=== PATIENT | female | born 1950 | race African-American/Black ===

== ENCOUNTER 2017-09-11 07:40 | Inpatient (IN) ==
[2017-09-11 08:13] LABS: Basophils % 0.2 % (0.0-0.8); Eosinophils # 0.1 10*3/uL (0.0-0.87); Eosinophils % 0.9 % (0.00-10.9); Hematocrit 41.1 VOL% (35.7-47.0); Hemoglobin 12.9 GM/DL (12.0-16.0); Immature Granulocytes % 0.3 %; Immature Granulocytes Absolute 0.04 #; Lymphocytes # 3.2 10*3/uL (1.4-4.0); Lymphocytes % 26.4 % (21.3-54.2); Mean Corpuscular HGB Conc 31.4 GM/DL (32-36); Mean Corpuscular Hemoglobin 26 PG (27-34); Mean Corpuscular Volume 82.2 FL (87-102); Mean Platelet Volume 11.1 FL (9.6-12.0); Monocytes # 0.9 10*3/uL (0.11-0.8); Neutrophils # 7.9 10*3/uL (1.4-7.4); Neutrophils % 65.2 % (38.7-73.9); Platelet Count 253 T/CUMM (130-400); Red Cell Distribution Width 14.6 % (9.3-17.3); White Blood Count 12.2 T/CUMM (4-12)
[2017-09-11 08:53] LABS: Apearance,Urine CLEAR (Clear); Bacteria,Urine Occasional /HPF (Few); Bilirubin,Urine Negative (Negative); Blood, Urine Small mg/dL (Negative); Glucose,Urine (UA) Negative (Negative); Ketones,Urine Negative (Negative); Nitrite,Urine Negative (Negative); Protein,Urine 30 MG/DL; Squamous Epithelial Cell,Urine Occasional /HPF (0-10); Urine Color Straw (Yellow); Urine Specific Gravity 1.003 (1.001-1.035); Urine Urobilinogen < 2.0 EU/DL (0.2-1.0); WBC,Urine <1 /HPF (0-6)
[2017-09-11 09:02] LABS: Albumin 3.9 G/DL (3.4-5.0); Bilirubin,Total 0.6 MG/DL (0.2-1.0); Calcium 9.2 MG/DL (8.5-10.1); Osmolality,Calculated 276.5 MOS/KG (273-304); Potassium 4.7 MMOL/L (3.5-5.1); Total Protein 9.4 G/DL (6.4-8.3)
[2017-09-11 09:05] LABS: PT Patient Result 10.5 SECS; Partial Thromboplastin Time 25.4 SECS (0-40)
[2017-09-11 09:15] LABS: Barbiturates Screen,Urine Negative (Negative); Benzodiazepines Screen,Urine Negative (Negative); Cannabinoid Screen,Urine Negative (Negative); Opiate Screen,Urine Negative (Negative); Phencyclidine Screen,Urine Negative (Negative)
[2017-09-11] MEDS ORDERED: ONDANSETRON 4 MG/2 ML VIAL IV PRN (09:57)
[2017-09-11] MEDS ORDERED: LABETALOL 20 MG/4 ML SYRINGE IV PRN (10:14)
[2017-09-11] MEDS ORDERED: GLUCAGON 1 MG VIAL IM PRN (10:18)
[2017-09-11] MEDS ORDERED: DEXTROSE 50% 25 GM/50 ML VIAL IV PRN (10:18)
[2017-09-11] MEDS: INSULIN REGULAR 100 UNIT/ML SUBCUT SCH ×3 (11:37→20:28)
[2017-09-11] MEDS ORDERED: LORazepam 0.5 MG TABLET PO ONE (12:25)
[2017-09-11 12:28] LABS: Cholesterol 173 MG/DL (50-200); HDL Cholesterol 66 MG/DL (40-60); Risk Ratio 2.62; Triglycerides 75 MG/DL (2-150)
[2017-09-11] MEDS: SODIUM CHLORIDE 0.9% 1,000 ML IV SCH (14:12)
[2017-09-11] MEDS: ASPIRIN EC 81 MG TABLET PO SCH (17:08)
[2017-09-11] MEDS: ATORVASTATIN 40 MG TABLET PO SCH (20:25)
[2017-09-12 05:11] LABS: Basophils % 0.3 % (0.0-0.8); Calcium 9.3 MG/DL (8.5-10.1); Eosinophils # 0.2 10*3/uL (0.0-0.87); Eosinophils % 1.6 % (0.00-10.9); Hematocrit 37.4 VOL% (35.7-47.0); Hemoglobin 11.6 GM/DL (12.0-16.0); Immature Granulocytes % 0.4 %; Immature Granulocytes Absolute 0.04 #; Lymphocytes # 3.2 10*3/uL (1.4-4.0); Lymphocytes % 31.9 % (21.3-54.2); Mean Corpuscular Hemoglobin 26 PG (27-34); Mean Corpuscular Volume 82.4 FL (87-102); Mean Platelet Volume 11.2 FL (9.6-12.0); Monocytes # 0.7 10*3/uL (0.11-0.8); Monocytes % 7.4 % (1.7-12.7); Neutrophils # 5.8 10*3/uL (1.4-7.4); Neutrophils % 58.4 % (38.7-73.9); Osmolality,Calculated 281.5 MOS/KG (273-304); Platelet Count 316 T/CUMM (130-400); Potassium 3.6 MMOL/L (3.5-5.1); Red Blood Count 4.54 MC/CUMM (3.8-5.5); Red Cell Distribution Width 14.5 % (9.3-17.3)
[2017-09-12] MEDS: INSULIN REGULAR 100 UNIT/ML SUBCUT SCH ×4 (08:14→20:37)
[2017-09-12] MEDS: PANTOPRAZOLE 40 MG TABLET PO SCH (08:14)
[2017-09-12] MEDS: ASPIRIN EC 81 MG TABLET PO SCH (08:14)
[2017-09-12] MEDS: SODIUM CHLORIDE 0.9% 1,000 ML IV SCH (08:17)
[2017-09-12] MEDS ORDERED: GABAPENTIN 100 MG CAPSULE PO PRN (09:47)
[2017-09-12] MEDS ORDERED: MELOXICAM 7.5 MG TABLET PO PRN (09:47)
[2017-09-12] MEDS ORDERED: FAMOTIDINE 20 MG TABLET PO PRN (09:47)
[2017-09-12] MEDS ORDERED: ERGOCALCIFEROL 50,000 UNIT CAPSULE PO SCH (10:00)
[2017-09-12] MEDS: POLYETHYLENE GLYCOL POWDER 17 GM PACK PO SCH (11:12)
[2017-09-12] MEDS: APIXABAN 2.5 MG TABLET PO SCH ×2 (11:15→20:32)
[2017-09-12] MEDS: glipiZIDE 5 MG TABLET PO SCH (17:16)
[2017-09-12] MEDS: ATORVASTATIN 40 MG TABLET PO SCH (20:33)
[2017-09-12] MEDS: TRAVOPROST 0.004% OPH SOLN 2.5 ML BOTTLE BOTH EYES SCH (20:33)
[2017-09-12] MEDS: INSULIN GLARGINE 100 UNIT/ML SUBCUT SCH (20:35)
[2017-09-12] MEDS ORDERED: IBUPROFEN 800 MG TABLET PO ONE (22:56)
[2017-09-13] MEDS: INSULIN REGULAR 100 UNIT/ML SUBCUT SCH ×4 (07:54→20:31)
[2017-09-13] MEDS ORDERED: MAGNESIUM HYDROXIDE SUSP 30 ML UDCUP PO PRN (08:35)
[2017-09-13] MEDS: POLYETHYLENE GLYCOL POWDER 17 GM PACK PO SCH (08:40)
[2017-09-13] MEDS: hydroCHLOROthiazide 25 MG TABLET PO SCH (08:41)
[2017-09-13] MEDS: APIXABAN 2.5 MG TABLET PO SCH ×2 (08:42→20:27)
[2017-09-13] MEDS: QUINAPRIL 20 MG TABLET PO SCH (08:42)
[2017-09-13] MEDS: PANTOPRAZOLE 40 MG TABLET PO SCH (08:43)
[2017-09-13] MEDS: glipiZIDE 5 MG TABLET PO SCH ×2 (08:44→17:38)
[2017-09-13] MEDS: INSULIN GLARGINE 100 UNIT/ML SUBCUT SCH (20:27)
[2017-09-13] MEDS: TRAVOPROST 0.004% OPH SOLN 2.5 ML BOTTLE BOTH EYES SCH (20:27)
[2017-09-13] MEDS: ATORVASTATIN 40 MG TABLET PO SCH (20:28)
[2017-09-14 05:41] LABS: Basophils % 0.3 % (0.0-0.8); Eosinophils # 0.3 10*3/uL (0.0-0.87); Eosinophils % 2.2 % (0.00-10.9); Hematocrit 35.4 VOL% (35.7-47.0); Immature Granulocytes % 0.9 %; Lymphocytes # 3.3 10*3/uL (1.4-4.0); Lymphocytes % 28.5 % (21.3-54.2); Mean Corpuscular HGB Conc 31.1 GM/DL (32-36); Mean Corpuscular Hemoglobin 26 PG (27-34); Mean Corpuscular Volume 82.9 FL (87-102); Mean Platelet Volume 11.7 FL (9.6-12.0); Monocytes # 0.8 10*3/uL (0.11-0.8); Monocytes % 7.2 % (1.7-12.7); Neutrophils % 60.9 % (38.7-73.9); Platelet Count 319 T/CUMM (130-400); Red Blood Count 4.27 MC/CUMM (3.8-5.5); Red Cell Distribution Width 14.6 % (9.3-17.3); White Blood Count 11.5 T/CUMM (4-12)
[2017-09-14 06:33] LABS: Calcium 9.3 MG/DL (8.5-10.1); Osmolality,Calculated 281.4 MOS/KG (273-304); Potassium 3.6 MMOL/L (3.5-5.1)
[2017-09-14] MEDS ORDERED: SODIUM CHLORIDE 0.9% 1,000 ML IV SCH ×2 (08:00)
[2017-09-14] MEDS: hydroCHLOROthiazide 25 MG TABLET PO SCH (08:44)
[2017-09-14] MEDS: INSULIN REGULAR 100 UNIT/ML SUBCUT SCH ×4 (08:44→20:13)
[2017-09-14] MEDS: PANTOPRAZOLE 40 MG TABLET PO SCH (08:45)
[2017-09-14] MEDS: glipiZIDE 5 MG TABLET PO SCH ×2 (08:45→17:46)
[2017-09-14] MEDS: QUINAPRIL 20 MG TABLET PO SCH (08:45)
[2017-09-14] MEDS ORDERED: diphenhydrAMINE CAP 25 MG CAPSULE PO ONE (09:00)
[2017-09-14] MEDS ORDERED: DIAZEPAM 5 MG TABLET PO ONE (09:00)
[2017-09-14] MEDS: APIXABAN 2.5 MG TABLET PO SCH ×2 (10:14→20:12)
[2017-09-14] MEDS: POLYETHYLENE GLYCOL POWDER 17 GM PACK PO SCH (10:15)
[2017-09-14] MEDS ORDERED: LIDOCAINE 1%/EPI INJ 20 ML VIAL ONE (14:01)
[2017-09-14] MEDS ORDERED: TISSUE ADHESIVE 1 EACH APPLICATOR TOP ONE (14:02)
[2017-09-14] MEDS ORDERED: DEXTROSE 50% 25 GM/50 ML VIAL IV PRN (15:34)
[2017-09-14] MEDS ORDERED: GLUCAGON 1 MG VIAL IM PRN (15:34)
[2017-09-14] MEDS ORDERED: KETOROLAC 15 MG/1 ML VIAL IV PRN (15:37)
[2017-09-14] MEDS: TRAVOPROST 0.004% OPH SOLN 2.5 ML BOTTLE BOTH EYES SCH (20:12)
[2017-09-14] MEDS: ATORVASTATIN 40 MG TABLET PO SCH (20:12)
[2017-09-14] MEDS: INSULIN GLARGINE 100 UNIT/ML SUBCUT SCH (20:12)
[2017-09-15] MEDS: INSULIN REGULAR 100 UNIT/ML SUBCUT SCH ×4 (08:09→20:26)
[2017-09-15] MEDS: QUINAPRIL 20 MG TABLET PO SCH (08:36)
[2017-09-15] MEDS: hydroCHLOROthiazide 25 MG TABLET PO SCH (08:36)
[2017-09-15] MEDS: APIXABAN 2.5 MG TABLET PO SCH ×2 (08:36→20:23)
[2017-09-15] MEDS: glipiZIDE 5 MG TABLET PO SCH ×2 (08:37→17:31)
[2017-09-15] MEDS: PANTOPRAZOLE 40 MG TABLET PO SCH (08:37)
[2017-09-15] MEDS: POLYETHYLENE GLYCOL POWDER 17 GM PACK PO SCH (08:37)
[2017-09-15] MEDS: ATORVASTATIN 40 MG TABLET PO SCH (20:22)
[2017-09-15] MEDS: TRAVOPROST 0.004% OPH SOLN 2.5 ML BOTTLE BOTH EYES SCH (20:23)
[2017-09-15] MEDS: INSULIN GLARGINE 100 UNIT/ML SUBCUT SCH (20:23)
[2017-09-16] MEDS: INSULIN REGULAR 100 UNIT/ML SUBCUT SCH ×4 (07:55→21:12)
[2017-09-16] MEDS: POLYETHYLENE GLYCOL POWDER 17 GM PACK PO SCH (10:09)
[2017-09-16] MEDS: hydroCHLOROthiazide 25 MG TABLET PO SCH (10:10)
[2017-09-16] MEDS: glipiZIDE 5 MG TABLET PO SCH ×2 (10:10→18:13)
[2017-09-16] MEDS: QUINAPRIL 20 MG TABLET PO SCH (10:10)
[2017-09-16] MEDS: APIXABAN 2.5 MG TABLET PO SCH ×2 (10:11→21:12)
[2017-09-16] MEDS: PANTOPRAZOLE 40 MG TABLET PO SCH (10:11)
[2017-09-16] MEDS: INSULIN GLARGINE 100 UNIT/ML SUBCUT SCH (21:12)
[2017-09-16] MEDS: ATORVASTATIN 40 MG TABLET PO SCH (21:12)
[2017-09-16] MEDS: TRAVOPROST 0.004% OPH SOLN 2.5 ML BOTTLE BOTH EYES SCH (21:12)
[2017-09-17] MEDS: INSULIN REGULAR 100 UNIT/ML SUBCUT SCH ×4 (07:59→21:01)
[2017-09-17] MEDS: POLYETHYLENE GLYCOL POWDER 17 GM PACK PO SCH (08:38)
[2017-09-17] MEDS: glipiZIDE 5 MG TABLET PO SCH ×2 (08:41→17:24)
[2017-09-17] MEDS: hydroCHLOROthiazide 25 MG TABLET PO SCH (08:41)
[2017-09-17] MEDS: QUINAPRIL 20 MG TABLET PO SCH (08:41)
[2017-09-17] MEDS: APIXABAN 2.5 MG TABLET PO SCH ×2 (08:42→21:00)
[2017-09-17] MEDS: PANTOPRAZOLE 40 MG TABLET PO SCH (08:42)
[2017-09-17] MEDS: ATORVASTATIN 40 MG TABLET PO SCH (21:00)
[2017-09-17] MEDS: INSULIN GLARGINE 100 UNIT/ML SUBCUT SCH (21:00)
[2017-09-17] MEDS: TRAVOPROST 0.004% OPH SOLN 2.5 ML BOTTLE BOTH EYES SCH (21:52)
[2017-09-18] MEDS: INSULIN REGULAR 100 UNIT/ML SUBCUT SCH ×2 (07:58→14:23)
[2017-09-18] MEDS: hydroCHLOROthiazide 25 MG TABLET PO SCH (08:40)
[2017-09-18] MEDS: glipiZIDE 5 MG TABLET PO SCH (08:40)
[2017-09-18] MEDS: QUINAPRIL 20 MG TABLET PO SCH (08:40)
[2017-09-18] MEDS: PANTOPRAZOLE 40 MG TABLET PO SCH (08:40)
[2017-09-18] MEDS: APIXABAN 2.5 MG TABLET PO SCH (08:40)
[2017-09-18] MEDS: POLYETHYLENE GLYCOL POWDER 17 GM PACK PO SCH (08:41)
[2017-09-18 14:27] VITALS: BP 121/75
== END 2017-09-18 15:58 | disposition home health service (06) | DRG 41 ==
LOC: N.ED 07:40 → SUATTDRO 09:57 → N.EDINP 09:57 → N.4E 10:27
PROVIDERS: ADMIT Internal Medicine Infectious Disease; ATTEND Internal Medicine

== ENCOUNTER 2017-10-08 21:13 | Inpatient (IN) ==
[2017-10-08 22:53] LABS: Basophils % 0.2 % (0.0-0.8); Eosinophils # 0.4 10*3/uL (0.0-0.87); Hematocrit 38.1 VOL% (35.7-47.0); Hemoglobin 11.9 GM/DL (12.0-16.0); Immature Granulocytes % 0.3 %; Immature Granulocytes Absolute 0.04 #; Lymphocytes # 3.6 10*3/uL (1.4-4.0); Lymphocytes % 28.8 % (21.3-54.2); Mean Corpuscular HGB Conc 31.2 GM/DL (32-36); Mean Corpuscular Hemoglobin 26 PG (27-34); Mean Corpuscular Volume 82.8 FL (87-102); Monocytes # 0.9 10*3/uL (0.11-0.8); Monocytes % 6.8 % (1.7-12.7); Neutrophils # 7.6 10*3/uL (1.4-7.4); Neutrophils % 60.9 % (38.7-73.9); Platelet Count 313 T/CUMM (130-400); Red Cell Distribution Width 14.1 % (9.3-17.3); White Blood Count 12.5 T/CUMM (4-12)
[2017-10-08 23:05] LABS: PT Patient Result 10.8 SECS
[2017-10-08 23:26] LABS: Alanine Aminotransferase 22 U/L (13-56); Alkaline Phosphatase 117 U/L (45-117); Aspartate Amino Transferase 22 U/L (0-37); Bilirubin,Total < 0.39 MG/DL (0.2-1.0); Blood Urea Nitrogen 18 MG/DL (7-18); Calcium 9.4 MG/DL (8.5-10.1); Glucose 175 MG/DL (74-106); Osmolality,Calculated 286.3 MOS/KG (273-304); Potassium 3.9 MMOL/L (3.5-5.1); Sodium 141 MMOL/L (136-145); Total Protein 8.6 G/DL (6.4-8.3); Troponin I Only < 0.015 NG/ML (0.00-0.045)
[2017-10-08] MEDS ORDERED: HYDROmorphone 2 MG/1 ML VIAL IV ONE (23:45)
[2017-10-08] MEDS ORDERED: ONDANSETRON 4 MG/2 ML VIAL IV STA (23:45)
[2017-10-08 23:56] LABS: Sedimentation Rate-Westergren 71 MM/HR (0-30)
[2017-10-09] MEDS ORDERED: methylPREDNISolone SOD SUC 125 MG/2 ML VIAL IV STA (00:13)
[2017-10-09] MEDS ORDERED: ONDANSETRON 4 MG/2 ML VIAL IV PRN (00:32)
[2017-10-09] MEDS ORDERED: GLUCAGON 1 MG VIAL IM PRN ×2 (00:32→02:04)
[2017-10-09] MEDS ORDERED: DEXTROSE 50% 25 GM/50 ML VIAL IV PRN ×2 (00:32→02:04)
[2017-10-09] MEDS ORDERED: GABAPENTIN 100 MG CAPSULE PO PRN (00:48)
[2017-10-09] MEDS ORDERED: ENOXAPARIN 30 MG/0.3 ML SYRINGE SUBCUT SCH (01:00)
[2017-10-09] MEDS: methylPREDNISolone SOD SUC 125 MG/2 ML VIAL IV SCH ×4 (01:41→18:28)
[2017-10-09] MEDS: INSULIN LISPRO 100 UNIT/ML SUBCUT SCH ×6 (04:20→23:38)
[2017-10-09 04:46] LABS: Basophils % 0.3 % (0.0-0.8); Eosinophils # 0.1 10*3/uL (0.0-0.87); Hematocrit 36.3 VOL% (35.7-47.0); Hemoglobin 11.4 GM/DL (12.0-16.0); Immature Granulocytes % 0.3 %; Immature Granulocytes Absolute 0.03 #; Lymphocytes % 18.5 % (21.3-54.2); Mean Corpuscular HGB Conc 31.4 GM/DL (32-36); Mean Corpuscular Hemoglobin 25 PG (27-34); Mean Corpuscular Volume 80.8 FL (87-102); Monocytes # 0.3 10*3/uL (0.11-0.8); Monocytes % 2.4 % (1.7-12.7); Neutrophils # 8.5 10*3/uL (1.4-7.4); Neutrophils % 77.5 % (38.7-73.9); Platelet Count 317 T/CUMM (130-400); Red Blood Count 4.49 MC/CUMM (3.8-5.5); Red Cell Distribution Width 14.3 % (9.3-17.3); White Blood Count 10.9 T/CUMM (4-12)
[2017-10-09 05:16] LABS: Calcium 9.3 MG/DL (8.5-10.1); Osmolality,Calculated 287.4 MOS/KG (273-304); Potassium 3.6 MMOL/L (3.5-5.1)
[2017-10-09] MEDS ORDERED: INSULIN LISPRO 100 UNIT/ML SUBCUT SCH (07:30)
[2017-10-09] MEDS: QUINAPRIL 20 MG TABLET PO SCH (09:45)
[2017-10-09] MEDS: hydroCHLOROthiazide 25 MG TABLET PO SCH (09:45)
[2017-10-09] MEDS: PANTOPRAZOLE 40 MG TABLET PO SCH (09:47)
[2017-10-09 10:17] LABS: Apearance,Urine CLEAR (Clear); Bilirubin,Urine Negative (Negative); Blood, Urine Negative (Negative); Glucose,Urine (UA) >=500 mg/dL (Negative); Ketones,Urine Negative (Negative); Mucus,Urine Occasional /LPF (Occasional); Nitrite,Urine Negative (Negative); Protein,Urine Negative; RBC,Urine 1 /HPF (0-4); Squamous Epithelial Cell,Urine Occasional /HPF (0-10); Urine Color Straw (Yellow); Urine Urobilinogen < 2.0 EU/DL (0.2-1.0); WBC,Urine 3 /HPF (0-6)
[2017-10-09] MEDS ORDERED: APIXABAN 2.5 MG TABLET PO SCH (12:00)
[2017-10-09] MEDS ORDERED: HEPARIN 5,000 UNIT/1 ML VIAL IV SCH (14:30)
[2017-10-09] MEDS: HEPARIN DRIP 25,000 UNITS/500 ML PREMIX IV SCH (16:41)
[2017-10-09] MEDS ORDERED: TRAVOPROST 0.004% OPH SOLN 2.5 ML BOTTLE BOTH EYES SCH (21:00)
[2017-10-09] MEDS ORDERED: APIXABAN 5 MG TABLET PO SCH (21:00)
[2017-10-09] MEDS: INSULIN GLARGINE 100 UNIT/ML SUBCUT SCH (21:17)
[2017-10-09] MEDS: ATORVASTATIN 40 MG TABLET PO SCH (21:17)
[2017-10-10] MEDS: methylPREDNISolone SOD SUC 125 MG/2 ML VIAL IV SCH ×4 (00:58→18:23)
[2017-10-10] MEDS: INSULIN LISPRO 100 UNIT/ML SUBCUT SCH ×5 (03:55→21:47)
[2017-10-10] MEDS: ASPIRIN CHEW 81 MG TABLET PO SCH (08:52)
[2017-10-10] MEDS: QUINAPRIL 20 MG TABLET PO SCH (08:52)
[2017-10-10] MEDS: hydroCHLOROthiazide 25 MG TABLET PO SCH (08:53)
[2017-10-10] MEDS: PANTOPRAZOLE 40 MG TABLET PO SCH (08:53)
[2017-10-10] MEDS: INSULIN GLARGINE 100 UNIT/ML SUBCUT SCH ×2 (08:54→21:47)
[2017-10-10] MEDS ORDERED: CLOPIDOGREL 75 MG TABLET PO SCH (09:00)
[2017-10-10] MEDS: HEPARIN DRIP 25,000 UNITS/500 ML PREMIX IV SCH (17:01)
[2017-10-10] MEDS: ATORVASTATIN 40 MG TABLET PO SCH (21:46)
[2017-10-11] MEDS: INSULIN LISPRO 100 UNIT/ML SUBCUT SCH ×6 (00:45→22:07)
[2017-10-11] MEDS: methylPREDNISolone SOD SUC 125 MG/2 ML VIAL IV SCH ×4 (00:45→18:25)
[2017-10-11 03:23] LABS: Basophils % 0.1 % (0.0-0.8); Hematocrit 33.2 VOL% (35.7-47.0); Hemoglobin 10.5 GM/DL (12.0-16.0); Immature Granulocytes % 0.8 %; Immature Granulocytes Absolute 0.19 #; Lymphocytes # 1.9 10*3/uL (1.4-4.0); Lymphocytes % 7.8 % (21.3-54.2); Mean Corpuscular HGB Conc 31.6 GM/DL (32-36); Mean Corpuscular Hemoglobin 26 PG (27-34); Mean Corpuscular Volume 82.8 FL (87-102); Mean Platelet Volume 12.7 FL (9.6-12.0); Monocytes # 0.5 10*3/uL (0.11-0.8); Neutrophils # 21.4 10*3/uL (1.4-7.4); Neutrophils % 89.3 % (38.7-73.9); Platelet Count 290 T/CUMM (130-400); Red Blood Count 4.01 MC/CUMM (3.8-5.5); Red Cell Distribution Width 14.3 % (9.3-17.3)
[2017-10-11 03:53] LABS: Alanine Aminotransferase 20 U/L (13-56); Alkaline Phosphatase 85 U/L (45-117); Aspartate Amino Transferase 16 U/L (0-37); Bilirubin,Total < 0.39 MG/DL (0.2-1.0); Blood Urea Nitrogen 28 MG/DL (7-18); Glucose 243 MG/DL (74-106); Osmolality,Calculated 290.5 MOS/KG (273-304); Potassium 3.3 MMOL/L (3.5-5.1); Sodium 139 MMOL/L (136-145); Total Protein 7.5 G/DL (6.4-8.3)
[2017-10-11 04:21] LABS: Band Neutrophils 2 % (0-10); Lymphocytes 8 % (20-55); Platelet Estimate Normal; Segmented Neutrophils 88 % (50-85)
[2017-10-11 04:25] LABS: Total Cells Counted 100
[2017-10-11] MEDS: POTASSIUM CHLORIDE 20 MEQ TABLET PO PRN ×4 (04:50→16:57)
[2017-10-11] MEDS: QUINAPRIL 20 MG TABLET PO SCH (09:05)
[2017-10-11] MEDS: INSULIN GLARGINE 100 UNIT/ML SUBCUT SCH ×2 (09:05→22:08)
[2017-10-11] MEDS: ASPIRIN CHEW 81 MG TABLET PO SCH (09:05)
[2017-10-11] MEDS: PANTOPRAZOLE 40 MG TABLET PO SCH (09:05)
[2017-10-11] MEDS: hydroCHLOROthiazide 25 MG TABLET PO SCH (09:05)
[2017-10-11] MEDS ORDERED: MAGNESIUM HYDROXIDE SUSP 30 ML UDCUP PO ONE (12:55)
[2017-10-11] MEDS ORDERED: BISACODYL 5 MG TABLET PO ONE (12:56)
[2017-10-11] MEDS ORDERED: LACTULOSE 20 GM/30 ML UDCUP PO ONE (12:56)
[2017-10-11] MEDS: ATORVASTATIN 40 MG TABLET PO SCH (22:07)
[2017-10-12] MEDS: INSULIN LISPRO 100 UNIT/ML SUBCUT SCH ×7 (01:24→20:49)
[2017-10-12] MEDS: methylPREDNISolone SOD SUC 125 MG/2 ML VIAL IV SCH ×4 (01:41→18:43)
[2017-10-12] MEDS: HEPARIN DRIP 25,000 UNITS/500 ML PREMIX IV SCH (03:04)
[2017-10-12 05:00] LABS: Basophils % 0.1 % (0.0-0.8); Hemoglobin 10.3 GM/DL (12.0-16.0); Immature Granulocytes % 0.6 %; Lymphocytes # 1.9 10*3/uL (1.4-4.0); Lymphocytes % 11.3 % (21.3-54.2); Mean Corpuscular HGB Conc 32.2 GM/DL (32-36); Mean Corpuscular Hemoglobin 26 PG (27-34); Mean Corpuscular Volume 80.6 FL (87-102); Mean Platelet Volume 12.2 FL (9.6-12.0); Monocytes # 0.5 10*3/uL (0.11-0.8); Monocytes % 2.9 % (1.7-12.7); Neutrophils # 14.6 10*3/uL (1.4-7.4); Neutrophils % 85.1 % (38.7-73.9); Platelet Count 274 T/CUMM (130-400); Red Blood Count 3.97 MC/CUMM (3.8-5.5); Red Cell Distribution Width 14.3 % (9.3-17.3); White Blood Count 17.1 T/CUMM (4-12)
[2017-10-12 05:21] LABS: Albumin 2.9 G/DL (3.4-5.0); Bilirubin,Total 0.5 MG/DL (0.2-1.0); Calcium 8.7 MG/DL (8.5-10.1); Osmolality,Calculated 290.4 MOS/KG (273-304); Potassium 3.3 MMOL/L (3.5-5.1); Total Protein 7.4 G/DL (6.4-8.3)
[2017-10-12] MEDS: ASPIRIN CHEW 81 MG TABLET PO SCH (09:45)
[2017-10-12] MEDS: hydroCHLOROthiazide 25 MG TABLET PO SCH ×2 (09:45→15:18)
[2017-10-12] MEDS: QUINAPRIL 20 MG TABLET PO SCH (09:45)
[2017-10-12] MEDS: INSULIN GLARGINE 100 UNIT/ML SUBCUT SCH ×2 (09:45→20:49)
[2017-10-12] MEDS: PANTOPRAZOLE 40 MG TABLET PO SCH ×2 (09:46→15:18)
[2017-10-12] MEDS ORDERED: LIDOCAINE 1%/EPI INJ 20 ML VIAL ONE (12:03)
[2017-10-12] MEDS ORDERED: TISSUE ADHESIVE 1 EACH APPLICATOR TOP ONE (12:03)
[2017-10-12] MEDS: LACTATED RINGERS 1,000 ML IV SCH (12:28)
[2017-10-12] MEDS ORDERED: PROPOFOL 200 MG/20 ML VIAL IV ONE (13:23)
[2017-10-12] MEDS ORDERED: SEVOFLURANE 1 UNIT/15 MINUTE INH ONE (13:23)
[2017-10-12] MEDS ORDERED: DEXAMETHASONE 10 MG/1 ML VIAL ONE (13:24)
[2017-10-12] MEDS ORDERED: ETOMIDATE 40 MG/20 ML VIAL IV ONE (13:24)
[2017-10-12] MEDS ORDERED: ePHEDrine 50 MG/ML AMP ONE (13:24)
[2017-10-12] MEDS ORDERED: GLYCOPYRROLATE 0.4 MG/2 ML VIAL ONE (13:24)
[2017-10-12] MEDS ORDERED: ONDANSETRON 4 MG/2 ML VIAL ONE (13:24)
[2017-10-12] MEDS ORDERED: fentaNYL 100 MCG/2 ML VIAL ONE (13:24)
[2017-10-12] MEDS ORDERED: PHENYLEPHRINE 1 MG/10 ML SYRINGE IV ONE (13:25)
[2017-10-12] MEDS ORDERED: DEXTROSE 50% 25 GM/50 ML VIAL IV PRN (15:22)
[2017-10-12] MEDS ORDERED: GLUCAGON 1 MG VIAL IM PRN (15:22)
[2017-10-12] MEDS: ATORVASTATIN 40 MG TABLET PO SCH (20:48)
[2017-10-13] MEDS: methylPREDNISolone SOD SUC 125 MG/2 ML VIAL IV SCH ×3 (00:14→13:14)
[2017-10-13] MEDS: INSULIN LISPRO 100 UNIT/ML SUBCUT SCH ×4 (00:18→13:13)
[2017-10-13] MEDS: INSULIN GLARGINE 100 UNIT/ML SUBCUT SCH (08:48)
[2017-10-13] MEDS: PANTOPRAZOLE 40 MG TABLET PO SCH (08:49)
[2017-10-13] MEDS: ASPIRIN CHEW 81 MG TABLET PO SCH (08:49)
[2017-10-13] MEDS: QUINAPRIL 20 MG TABLET PO SCH (08:50)
[2017-10-13] MEDS: hydroCHLOROthiazide 25 MG TABLET PO SCH (08:51)
[2017-10-13] MEDS ORDERED: APIXABAN 5 MG TABLET PO SCH (08:53)
[2017-10-13] MEDS: LACTATED RINGERS 1,000 ML IV SCH (13:14)
[2017-10-13 13:15] VITALS: BP 147/81
[2017-10-15] MEDS ORDERED: ERGOCALCIFEROL 50,000 UNIT CAPSULE PO SCH (09:00)
== END 2017-10-13 13:46 | disposition home or self-care (01) | DRG 41 ==
LOC: N.ED 21:13 → SUATTDRO 10-09 00:33 → N.EDINP 10-09 00:33 → N.TELES 10-09 02:12
PROVIDERS: ADMIT Internal Medicine; ATTEND Internal Medicine

== ENCOUNTER 2020-07-02 06:22 | Inpatient (IN) ==
[2020-07-02 07:11] LABS: Basophils % 0.2 % (0.0-0.8); Eosinophils # 0.2 10*3/uL (0.0-0.87); Eosinophils % 1.7 % (0.00-10.9); Hematocrit 38.3 VOL% (35.7-47.0); Immature Granulocytes % 0.4 %; Immature Granulocytes Absolute 0.04 #; Lymphocytes # 1.8 10*3/uL (1.4-4.0); Mean Corpuscular HGB Conc 31.3 GM/DL (32-36); Mean Corpuscular Volume 84.9 FL (87-102); Monocytes % 7.3 % (1.7-12.7); Neutrophils % 73.4 % (38.7-73.9); Platelet Count 212 T/CUMM (130-400); Red Blood Count 4.51 MC/CUMM (3.8-5.5); Red Cell Distribution Width 14.6 % (9.3-17.3); White Blood Count 10.6 T/CUMM (4-12)
[2020-07-02 07:44] LABS: Calcium 9.6 MG/DL (8.5-10.1); Potassium 3.5 MMOL/L (3.5-5.1)
[2020-07-02] MEDS ORDERED: MORPHINE 4 MG/1 ML VIAL IV STA (07:57)
[2020-07-02] MEDS ORDERED: ONDANSETRON 4 MG/2 ML VIAL IV STA (07:58)
[2020-07-02] MEDS ORDERED: ENOXAPARIN 80 MG/0.8 ML SYRINGE SUBCUT STA (09:18)
[2020-07-02] MEDS ORDERED: ASPIRIN CHEW 81 MG TABLET PO STA (09:18)
[2020-07-02] MEDS ORDERED: GLUCAGON 1 MG VIAL IM PRN ×2 (09:54→13:36)
[2020-07-02] MEDS ORDERED: NITROGLYCERIN SL 0.4 MG TABLET SL PRN (09:54)
[2020-07-02] MEDS ORDERED: hydrALAZINE 20 MG/1 ML VIAL IV PRN (09:54)
[2020-07-02] MEDS ORDERED: ONDANSETRON 4 MG/2 ML VIAL IV PRN (09:54)
[2020-07-02] MEDS ORDERED: DEXTROSE 50% 25 GM/50 ML VIAL IV PRN ×2 (09:54→13:36)
[2020-07-02] MEDS ORDERED: carvediloL 3.125 MG TABLET PO SCH (10:00)
[2020-07-02 10:16] LABS: Risk Ratio 1.75; VLDL CHOLESTEROL 15.4 MG/DL
[2020-07-02 10:23] LABS: Thyroid Stimulating Hormone 0.43 uIU/ml (0.358-3.74)
[2020-07-02] MEDS ORDERED: NITROGLYCERIN 2% OINT 1 INCH/GM PACK TOP STA (11:11)
[2020-07-02] MEDS ORDERED: MORPHINE 4 MG/1 ML VIAL IV PRN (11:11)
[2020-07-02] MEDS ORDERED: MAGNESIUM SULF RIDER 2 GM/50 ML PREMIX IV PRN (11:34)
[2020-07-02] MEDS ORDERED: POTASSIUM CHLORIDE RIDER 10 MEQ in PREMIX 1 EACH IV PRN (11:34)
[2020-07-02] MEDS: lisinopriL 5 MG TABLET PO SCH (11:53)
[2020-07-02] MEDS: METOPROLOL TARTRATE 25 MG TABLET PO SCH ×2 (11:53→20:39)
[2020-07-02] MEDS ORDERED: LIDOCAINE 1% 20 ML VIAL ONE (11:58)
[2020-07-02] MEDS: INSULIN LISPRO 100 UNIT/ML SUBCUT SCH ×3 (12:06→23:33)
[2020-07-02] MEDS ORDERED: diphenhydrAMINE CAP 50 MG CAPSULE PO ONE (12:30)
[2020-07-02] MEDS ORDERED: DIAZEPAM 5 MG TABLET PO ONE (12:30)
[2020-07-02] MEDS ORDERED: MIDAZOLAM 2 MG/2 ML VIAL ONE (12:34)
[2020-07-02] MEDS ORDERED: fentaNYL 100 MCG/2 ML VIAL ONE (12:34)
[2020-07-02] MEDS ORDERED: ZALEPLON 5 MG CAPSULE PO PRN (13:36)
[2020-07-02] MEDS ORDERED: KETOROLAC 10 MG TABLET PO PRN (14:35)
[2020-07-02] MEDS ORDERED: diphenhydrAMINE CAP 25 MG CAPSULE PO PRN (14:36)
[2020-07-02] MEDS ORDERED: MORPHINE 10 MG/1 ML VIAL ONE (16:59)
[2020-07-02] MEDS: LORATADINE 10 MG TABLET PO SCH (20:39)
[2020-07-02] MEDS: ENOXAPARIN 80 MG/0.8 ML SYRINGE SUBCUT SCH (20:40)
[2020-07-02] MEDS: prednisoLONE ACETATE 1% OPH SUSP 5 ML BOTTLE RIGHT EYE SCH (20:41)
[2020-07-02] MEDS: KETOROLAC 0.5% OPH SOLN 5 ML BOTTLE RIGHT EYE SCH (20:41)
[2020-07-02] MEDS: MOXIFLOXACIN 0.5% OPH SOLN 3 ML BOTTLE RIGHT EYE SCH ×2 (21:44)
[2020-07-02] MEDS: SODIUM CHLORIDE 0.9% 1,000 ML IV SCH ×2 (21:45→23:36)
[2020-07-03] MEDS: SODIUM CHLORIDE 0.9% 1,000 ML IV SCH ×2 (02:59→13:08)
[2020-07-03 05:33] LABS: Basophils % 0.1 % (0.0-0.8); Hematocrit 33.3 VOL% (35.7-47.0); Hemoglobin 10.6 GM/DL (12.0-16.0); Immature Granulocytes % 0.3 %; Immature Granulocytes Absolute 0.02 #; Lymphocytes # 1.3 10*3/uL (1.4-4.0); Lymphocytes % 17.7 % (21.3-54.2); Mean Corpuscular HGB Conc 31.8 GM/DL (32-36); Mean Corpuscular Volume 83.7 FL (87-102); Mean Platelet Volume 11.2 FL (9.6-12.0); Monocytes % 7.2 % (1.7-12.7); Neutrophils % 74.7 % (38.7-73.9); Platelet Count 221 T/CUMM (130-400); Red Blood Count 3.98 MC/CUMM (3.8-5.5); Red Cell Distribution Width 14.6 % (9.3-17.3); White Blood Count 7.4 T/CUMM (4-12)
[2020-07-03 05:49] LABS: Calcium 9.1 MG/DL (8.5-10.1); Osmolality,Calculated 279.7 MOS/KG (273-304); Potassium 3.4 MMOL/L (3.5-5.1)
[2020-07-03] MEDS ORDERED: ENOXAPARIN 40 MG/0.4 ML SYRINGE SUBCUT SCH (09:00)
[2020-07-03] MEDS: CHOLECALCIFEROL 1,000 UNIT TABLET PO SCH (09:25)
[2020-07-03] MEDS: ASPIRIN CHEW 81 MG TABLET PO SCH (09:25)
[2020-07-03] MEDS: VITAMIN E 400 UNIT CAPSULE PO SCH (09:26)
[2020-07-03] MEDS: FERROUS SULFATE 325 MG TABLET PO SCH (09:26)
[2020-07-03] MEDS: CYANOCOBALAMIN 500 MCG TABLET PO SCH (09:26)
[2020-07-03] MEDS: PANTOPRAZOLE 40 MG TABLET PO SCH (09:27)
[2020-07-03] MEDS: ATORVASTATIN 80 MG TABLET PO SCH (09:28)
[2020-07-03] MEDS: lisinopriL 5 MG TABLET PO SCH (09:29)
[2020-07-03] MEDS: DOCUSATE SODIUM 100 MG CAPSULE PO SCH (09:29)
[2020-07-03] MEDS: METOPROLOL TARTRATE 25 MG TABLET PO SCH ×2 (09:30→21:00)
[2020-07-03] MEDS: POTASSIUM CHLORIDE 10 MEQ TABLET PO SCH ×2 (09:31→21:01)
[2020-07-03] MEDS: INSULIN LISPRO 100 UNIT/ML SUBCUT SCH ×4 (09:33→21:12)
[2020-07-03] MEDS: ENOXAPARIN 80 MG/0.8 ML SYRINGE SUBCUT SCH ×2 (09:33→21:00)
[2020-07-03] MEDS: prednisoLONE ACETATE 1% OPH SUSP 5 ML BOTTLE RIGHT EYE SCH ×4 (09:35→21:12)
[2020-07-03] MEDS: KETOROLAC 0.5% OPH SOLN 5 ML BOTTLE RIGHT EYE SCH ×4 (09:35→21:12)
[2020-07-03] MEDS: MOXIFLOXACIN 0.5% OPH SOLN 3 ML BOTTLE RIGHT EYE SCH ×4 (09:37→21:13)
[2020-07-03] MEDS: ASCORBIC ACID 500 MG TABLET PO SCH (21:01)
[2020-07-03] MEDS: LORATADINE 10 MG TABLET PO SCH (21:01)
[2020-07-04 04:48] LABS: Basophils % 0.3 % (0.0-0.8); Eosinophils % 0.5 % (0.00-10.9); Hematocrit 34.6 VOL% (35.7-47.0); Hemoglobin 10.6 GM/DL (12.0-16.0); Immature Granulocytes % 0.3 %; Immature Granulocytes Absolute 0.02 #; Lymphocytes # 2.2 10*3/uL (1.4-4.0); Lymphocytes % 28.4 % (21.3-54.2); Mean Corpuscular HGB Conc 30.6 GM/DL (32-36); Mean Corpuscular Volume 85.6 FL (87-102); Mean Platelet Volume 11.1 FL (9.6-12.0); Neutrophils % 60.5 % (38.7-73.9); Platelet Count 219 T/CUMM (130-400); Red Blood Count 4.04 MC/CUMM (3.8-5.5); Red Cell Distribution Width 14.8 % (9.3-17.3); White Blood Count 7.8 T/CUMM (4-12)
[2020-07-04 05:14] LABS: Calcium 9.2 MG/DL (8.5-10.1); Osmolality,Calculated 277.5 MOS/KG (273-304); Potassium 3.5 MMOL/L (3.5-5.1)
[2020-07-04 05:16] LABS: Calcium 8.9 MG/DL (8.5-10.1); Osmolality,Calculated 281.3 MOS/KG (273-304); Potassium 3.5 MMOL/L (3.5-5.1)
[2020-07-04] MEDS: INSULIN LISPRO 100 UNIT/ML SUBCUT SCH ×4 (09:53→20:44)
[2020-07-04] MEDS: VITAMIN E 400 UNIT CAPSULE PO SCH (09:54)
[2020-07-04] MEDS: CHOLECALCIFEROL 1,000 UNIT TABLET PO SCH (09:54)
[2020-07-04] MEDS: POTASSIUM CHLORIDE 10 MEQ TABLET PO SCH ×2 (09:54→20:44)
[2020-07-04] MEDS: ATORVASTATIN 80 MG TABLET PO SCH (09:54)
[2020-07-04] MEDS: CYANOCOBALAMIN 500 MCG TABLET PO SCH (09:54)
[2020-07-04] MEDS: lisinopriL 5 MG TABLET PO SCH (09:55)
[2020-07-04] MEDS: DOCUSATE SODIUM 100 MG CAPSULE PO SCH (09:55)
[2020-07-04] MEDS: ASCORBIC ACID 500 MG TABLET PO SCH ×2 (09:55→20:44)
[2020-07-04] MEDS: PANTOPRAZOLE 40 MG TABLET PO SCH (09:56)
[2020-07-04] MEDS: FERROUS SULFATE 325 MG TABLET PO SCH (09:56)
[2020-07-04] MEDS: METOPROLOL TARTRATE 25 MG TABLET PO SCH ×2 (09:56→20:44)
[2020-07-04] MEDS: ASPIRIN CHEW 81 MG TABLET PO SCH (09:56)
[2020-07-04] MEDS: prednisoLONE ACETATE 1% OPH SUSP 5 ML BOTTLE RIGHT EYE SCH ×4 (09:57→20:44)
[2020-07-04] MEDS: KETOROLAC 0.5% OPH SOLN 5 ML BOTTLE RIGHT EYE SCH ×4 (09:57→20:44)
[2020-07-04] MEDS: MOXIFLOXACIN 0.5% OPH SOLN 3 ML BOTTLE RIGHT EYE SCH ×4 (09:58→20:45)
[2020-07-04] MEDS ORDERED: SUMAtriptan 25 MG TABLET PO PRN (15:07)
[2020-07-04] MEDS: LORATADINE 10 MG TABLET PO SCH (20:44)
[2020-07-05 05:30] LABS: Basophils % 0.2 % (0.0-0.8); Eosinophils % 0.4 % (0.00-10.9); Hematocrit 29.9 VOL% (35.7-47.0); Hemoglobin 9.3 GM/DL (12.0-16.0); Immature Granulocytes % 0.4 %; Immature Granulocytes Absolute 0.04 #; Lymphocytes # 2.1 10*3/uL (1.4-4.0); Lymphocytes % 22.9 % (21.3-54.2); Mean Corpuscular HGB Conc 31.1 GM/DL (32-36); Mean Corpuscular Volume 84.9 FL (87-102); Monocytes % 10.6 % (1.7-12.7); Neutrophils % 65.5 % (38.7-73.9); Platelet Count 215 T/CUMM (130-400); Red Blood Count 3.52 MC/CUMM (3.8-5.5); Red Cell Distribution Width 14.8 % (9.3-17.3); White Blood Count 9.1 T/CUMM (4-12)
[2020-07-05 05:47] LABS: Calcium 8.7 MG/DL (8.5-10.1); Osmolality,Calculated 280.7 MOS/KG (273-304); Potassium 3.5 MMOL/L (3.5-5.1)
[2020-07-05 06:06] LABS: Albumin 3.2 G/DL (3.4-5.0); Bilirubin,Total 0.6 MG/DL (0.2-1.0); Calcium 8.8 MG/DL (8.5-10.1); Osmolality,Calculated 281.7 MOS/KG (273-304); Potassium 3.6 MMOL/L (3.5-5.1); Total Protein 7.5 G/DL (6.4-8.2)
[2020-07-05] MEDS ORDERED: CHLORHEXIDINE 4% SOLN 118 ML BOTTLE TOP SCH (09:00)
[2020-07-05] MEDS ORDERED: CHLORHEXIDINE 0.12% ORAL RINSE 60 ML BOTTLE SWISH/SPIT SCH (09:00)
[2020-07-05 09:59] LABS: ABG Base Excess 0.2 MMOL/L (-2.5-2.5); ABG HCO3 24.4 MMOL/L (20-26); ABG Oxygen Saturation 97.1 % (95-100); ABG PCO2 37.9 MM HG (35-48); ABG PH 7.427 (7.35-7.45); ABG PO2 95.8 MM HG (80-95); ABG TCO2 25.6 MMOL/L (23-27)
[2020-07-05] MEDS: prednisoLONE ACETATE 1% OPH SUSP 5 ML BOTTLE RIGHT EYE SCH ×4 (10:11→22:52)
[2020-07-05] MEDS: KETOROLAC 0.5% OPH SOLN 5 ML BOTTLE RIGHT EYE SCH ×4 (10:11→22:51)
[2020-07-05] MEDS: MOXIFLOXACIN 0.5% OPH SOLN 3 ML BOTTLE RIGHT EYE SCH ×4 (10:11→22:52)
[2020-07-05] MEDS: POTASSIUM CHLORIDE 10 MEQ TABLET PO SCH ×2 (10:12→21:59)
[2020-07-05] MEDS: lisinopriL 5 MG TABLET PO SCH (10:12)
[2020-07-05] MEDS: CHOLECALCIFEROL 1,000 UNIT TABLET PO SCH (10:12)
[2020-07-05] MEDS: PANTOPRAZOLE 40 MG TABLET PO SCH (10:12)
[2020-07-05] MEDS: ATORVASTATIN 80 MG TABLET PO SCH (10:13)
[2020-07-05] MEDS: ASPIRIN CHEW 81 MG TABLET PO SCH (10:13)
[2020-07-05] MEDS: FERROUS SULFATE 325 MG TABLET PO SCH (10:13)
[2020-07-05] MEDS: METOPROLOL TARTRATE 25 MG TABLET PO SCH ×2 (10:13→21:59)
[2020-07-05] MEDS: DOCUSATE SODIUM 100 MG CAPSULE PO SCH (10:13)
[2020-07-05] MEDS: CYANOCOBALAMIN 500 MCG TABLET PO SCH (10:13)
[2020-07-05] MEDS: VITAMIN E 400 UNIT CAPSULE PO SCH (10:13)
[2020-07-05] MEDS: ASCORBIC ACID 500 MG TABLET PO SCH ×2 (10:13→21:59)
[2020-07-05] MEDS: INSULIN LISPRO 100 UNIT/ML SUBCUT SCH ×4 (10:19→22:51)
[2020-07-05] MEDS ORDERED: SODIUM CHLORIDE 0.9% 1,000 ML IV SCH (11:00)
[2020-07-05] MEDS: CHLORHEXIDINE 4% SOLN 118 ML BOTTLE TOP SCH ×2 (16:54→22:51)
[2020-07-05] MEDS: LORATADINE 10 MG TABLET PO SCH (21:59)
[2020-07-06] MEDS ORDERED: PAPAVERINE 60 MG/2 ML VIAL ONE (04:59)
[2020-07-06] MEDS ORDERED: VANCOMYCIN 1,000 MG VIAL ONE (05:00)
[2020-07-06] MEDS ORDERED: CEFUROXIME INJ 1,500 MG in SODIUM CHLORIDE 0.9% 100 ML IV ONE (05:00)
[2020-07-06] MEDS ORDERED: FAMOTIDINE 20 MG TABLET PO ONE (05:58)
[2020-07-06] MEDS ORDERED: DIAZEPAM 5 MG TABLET PO ONE (05:59)
[2020-07-06] MEDS ORDERED: PHENYLEPHRINE DRIP 0 MG/0 ML PREMIX IV ONE (06:00)
[2020-07-06] MEDS ORDERED: PHENYLEPHRINE DRIP 20 MG/250 ML PREMIX IV ONE ×2 (06:00→06:13)
[2020-07-06] MEDS ORDERED: SODIUM CHLORIDE 0.9% 1,000 ML IV SCH (06:00)
[2020-07-06] MEDS: CHLORHEXIDINE 4% SOLN 118 ML BOTTLE TOP SCH ×2 (06:04→08:52)
[2020-07-06] MEDS ORDERED: MIDAZOLAM 10 MG/2 ML VIAL ONE ×3 (06:04→10:06)
[2020-07-06] MEDS ORDERED: HYDROCORTISONE 100 MG VIAL ONE (06:45)
[2020-07-06] MEDS ORDERED: SUFentanil 250 MCG/5 ML AMP ONE ×2 (06:46)
[2020-07-06 07:45] LABS: ABG Base Excess 0.4 MMOL/L (-2.5-2.5); ABG HCO3 24.8 MMOL/L (20-26); ABG PCO2 33.4 MM HG (35-48); ABG PH 7.462 (7.35-7.45); ABG TCO2 22.2 MMOL/L (23-27); Glucose Heart Surgery 122 MG/DL (74-106); Hematocrit Heart Surgery 24.8 PERCENT (37-47); Ionized Calcium Arterial 1.15 MMOL/L (1.21-1.46); PCO2 Patient Temp Arterial 33.4 MMHG; PH Patient Temp Arterial 7.462; Patient Temperature 37 CELCIUS; Potassium Heart/CVR 3.6 MMOL/L (3.5-5.1); Sodium Heart/CVR 140 MMOL/L (135-145)
[2020-07-06] MEDS ORDERED: SODIUM BICARBONATE 50 MEQ/50 ML VIAL IV ONE ×2 (07:53→11:26)
[2020-07-06] MEDS ORDERED: POTASSIUM CHLORIDE RIDER 100 ML IV ONE (07:53)
[2020-07-06] MEDS ORDERED: NITROPRUSSIDE 50 MG/2 ML VIAL ONE (07:53)
[2020-07-06] MEDS ORDERED: CALCIUM CHLORIDE 1,000 MG/10 ML SYRINGE IV ONE (07:53)
[2020-07-06] MEDS ORDERED: PHENYLEPHRINE DRIP 40 MG/250 ML PREMIX IV ONE (08:14)
[2020-07-06] MEDS: INSULIN LISPRO 100 UNIT/ML SUBCUT SCH ×2 (08:51→14:06)
[2020-07-06] MEDS: DOCUSATE SODIUM 100 MG CAPSULE PO SCH (08:52)
[2020-07-06] MEDS: ATORVASTATIN 80 MG TABLET PO SCH (08:52)
[2020-07-06] MEDS: METOPROLOL TARTRATE 25 MG TABLET PO SCH (08:52)
[2020-07-06] MEDS: FERROUS SULFATE 325 MG TABLET PO SCH (08:52)
[2020-07-06] MEDS: POTASSIUM CHLORIDE 10 MEQ TABLET PO SCH (08:52)
[2020-07-06] MEDS: ASPIRIN CHEW 81 MG TABLET PO SCH (08:52)
[2020-07-06] MEDS: PANTOPRAZOLE 40 MG TABLET PO SCH (08:53)
[2020-07-06] MEDS: CYANOCOBALAMIN 500 MCG TABLET PO SCH (08:53)
[2020-07-06] MEDS: MOXIFLOXACIN 0.5% OPH SOLN 3 ML BOTTLE RIGHT EYE SCH ×4 (08:53→20:57)
[2020-07-06] MEDS: VITAMIN E 400 UNIT CAPSULE PO SCH (08:53)
[2020-07-06] MEDS: lisinopriL 5 MG TABLET PO SCH (08:53)
[2020-07-06] MEDS: ASCORBIC ACID 500 MG TABLET PO SCH (08:53)
[2020-07-06] MEDS: CHOLECALCIFEROL 1,000 UNIT TABLET PO SCH (08:53)
[2020-07-06] MEDS: prednisoLONE ACETATE 1% OPH SUSP 5 ML BOTTLE RIGHT EYE SCH ×4 (08:53→20:57)
[2020-07-06] MEDS: KETOROLAC 0.5% OPH SOLN 5 ML BOTTLE RIGHT EYE SCH ×4 (08:54→20:57)
[2020-07-06] MEDS ORDERED: CHLORHEXIDINE 0.12% ORAL RINSE 60 ML BOTTLE SWISH/SPIT SCH (09:00)
[2020-07-06] MEDS ORDERED: AMINOCAPROIC ACID 5,000 MG/20 ML VIAL ONE ×4 (09:13)
[2020-07-06] MEDS ORDERED: VECURONIUM 10 MG VIAL IV ONE ×3 (09:13→10:06)
[2020-07-06] MEDS ORDERED: ETOMIDATE 40 MG/20 ML VIAL IV ONE (09:13)
[2020-07-06] MEDS ORDERED: LIDOCAINE 2% 5 ML VIAL ONE ×2 (09:13→11:25)
[2020-07-06] MEDS ORDERED: SODIUM CHLORIDE 0.9% 250 ML IV ONE (09:14)
[2020-07-06] MEDS ORDERED: SODIUM CHLORIDE 0.9% 1,000 ML IV ONE ×2 (09:14→11:30)
[2020-07-06] MEDS ORDERED: LACTATED RINGERS 1,000 ML IV ONE (09:14)
[2020-07-06] MEDS ORDERED: HEPARIN/NACL 0.9% 2 UNITS/ML 1,000 UNIT/500 ML BAG IV ONE (09:21)
[2020-07-06 09:24] LABS: Bilirubin,Urine Negative (Negative); Blood, Urine Negative (Negative); Glucose,Urine (UA) Negative (Negative); Hyaline Casts,Urine 4 /LPF (0-3); Ketones,Urine Negative (Negative); Nitrite,Urine Negative (Negative); Protein,Urine Negative; RBC,Urine 1 /HPF (0-4); Squamous Epithelial Cell,Urine Occasional /HPF (0-10); Urine Appearance CLEAR (Clear); Urine Color Yellow (Yellow); Urine Specific Gravity 1.009 (1.001-1.035); Urine Urobilinogen < 2.0 EU/DL (0.2-1.0)
[2020-07-06 09:32] LABS: Hematocrit Heart Surgery 25.9 PERCENT (37-47); Hemoglobin Heart Surgery 8.3 G/DL (12.0-16.0); PCO2 Patient Temp Venous 25.3 MM HG; PH Patient Temp Venous 7.549; PO2 Patient Temp Venous 33.6 MM HG; Potassium Heart/CVR 4.6 MMOL/L (3.5-5.1); VBG Base Excess 0.3 MEQ/L (0-4); VBG HCO3 24.5 MEQ/L (24-28); VBG Oxygen Saturation 81.7 %; VBG PCO2 29.2 MMHG (41-51); VBG PH 7.503; VBG PO2 41.5 MMHG (17-40); VBG Total CO2 21.3 MMOL/L
[2020-07-06] MEDS ORDERED: CALCIUM CHLORIDE 1,000 MG/10 ML VIAL IV ONE (10:06)
[2020-07-06 10:07] LABS: Hemoglobin Heart Surgery 9.4 G/DL (12.0-16.0); PCO2 Patient Temp Venous 24.8 MM HG; PH Patient Temp Venous 7.56; PO2 Patient Temp Venous 34.7 MM HG; VBG Base Excess 0.8 MEQ/L (0-4); VBG HCO3 24.9 MEQ/L (24-28); VBG Oxygen Saturation 82.8 %; VBG PCO2 28.7 MMHG (41-51); VBG PH 7.514; VBG PO2 42.8 MMHG (17-40); VBG Total CO2 21.2 MMOL/L
[2020-07-06 11:15] LABS: ABG Base Excess -0.7 MMOL/L (-2.5-2.5); ABG HCO3 23.9 MMOL/L (20-26); ABG PCO2 26.5 MM HG (35-48); ABG PH 7.515 (7.35-7.45); ABG TCO2 19.4 MMOL/L (23-27); Glucose Heart Surgery 288 MG/DL (74-106); Hematocrit Heart Surgery 29.4 PERCENT (37-47); Hemoglobin Heart Surgery 9.5 G/DL (12.0-16.0); Ionized Calcium Arterial 1.11 MMOL/L (1.21-1.46); PCO2 Patient Temp Arterial 26.5 MMHG; PH Patient Temp Arterial 7.515; Patient Temperature 37 CELCIUS; Potassium Heart/CVR 3.7 MMOL/L (3.5-5.1); Sodium Heart/CVR 135 MMOL/L (135-145)
[2020-07-06] MEDS ORDERED: methylPREDNISolone SOD SUC 1,000 MG/8 ML VIAL ONE (11:25)
[2020-07-06] MEDS ORDERED: DEXTROSE 5% KCL 20 MEQ 20 MEQ/1,000 ML BAG IV ONE (11:25)
[2020-07-06] MEDS ORDERED: ALBUMIN 25% 25 GM/100 ML VIAL IV ONE (11:25)
[2020-07-06] MEDS ORDERED: MANNITOL 100 GM/500 ML BAG IV ONE (11:25)
[2020-07-06] MEDS ORDERED: MAGNESIUM SULFATE 5 GM/10 ML VIAL IV ONE (11:25)
[2020-07-06] MEDS ORDERED: PROTAMINE SULFATE 250 MG/25 ML VIAL IV ONE (11:25)
[2020-07-06] MEDS ORDERED: HEPARIN 10,000 UNIT/10 ML VIAL ONE (11:26)
[2020-07-06] MEDS ORDERED: PROTAMINE SULFATE 50 MG/5 ML VIAL IV ONE (11:26)
[2020-07-06] MEDS ORDERED: FUROSEMIDE 20 MG/2 ML VIAL ONE (11:26)
[2020-07-06] MEDS ORDERED: SEVOFLURANE 1 UNIT/15 MINUTE INH ONE (12:11)
[2020-07-06] MEDS ORDERED: ACETAMINOPHEN 650 MG SUPP RECTAL PRN (12:32)
[2020-07-06] MEDS ORDERED: VECURONIUM 10 MG VIAL IV PRN ×2 (12:32)
[2020-07-06] MEDS ORDERED: ONDANSETRON 4 MG/2 ML VIAL IV PRN (12:32)
[2020-07-06] MEDS ORDERED: MIDAZOLAM 2 MG/2 ML VIAL IV PRN (12:32)
[2020-07-06] MEDS ORDERED: MAGNESIUM SULF RIDER 4 GM/100 ML PREMIX IV PRN (12:32)
[2020-07-06] MEDS ORDERED: MAGNESIUM SULF RIDER 2 GM/50 ML PREMIX IV PRN (12:32)
[2020-07-06] MEDS ORDERED: MIDAZOLAM 10 MG/2 ML VIAL IV PRN (12:32)
[2020-07-06] MEDS ORDERED: DEXTROSE 50% 25 GM/50 ML VIAL IV PRN ×2 (12:32)
[2020-07-06] MEDS ORDERED: PHENYLEPHRINE DRIP 40 MG/250 ML PREMIX IV PRN (12:32)
[2020-07-06] MEDS ORDERED: INSULIN REGULAR 100 UNIT/ML IV PRN (12:32)
[2020-07-06] MEDS ORDERED: INSULIN REGULAR 100 UNIT/ML IV ONE (12:32)
[2020-07-06] MEDS ORDERED: CHLORHEXIDINE 4% SOLN 118 ML BOTTLE TOP PRN (12:32)
[2020-07-06] MEDS ORDERED: MORPHINE 10 MG/1 ML VIAL IV PRN (12:32)
[2020-07-06] MEDS ORDERED: LACTATED RINGERS 250 ML IV PRN (12:32)
[2020-07-06] MEDS ORDERED: CALCIUM CHLORIDE 1,000 MG/10 ML SYRINGE IV PRN (12:32)
[2020-07-06] MEDS ORDERED: NITROPRUSSIDE 100 MG in DEXTROSE 5% 250 ML IV PRN (12:32)
[2020-07-06 12:41] LABS: ABG Base Excess -3.4 MMOL/L (-2.5-2.5); ABG HCO3 21.6 MMOL/L (20-26); ABG TCO2 17.7 MMOL/L (23-27); Basophils % 0.1 % (0.0-0.8); Eosinophils % 0.4 % (0.00-10.9); Glucose Heart Surgery 310 MG/DL (74-106); Hematocrit Heart Surgery 35.2 PERCENT (37-47); Hemoglobin 11.3 GM/DL (12.0-16.0); Hemoglobin Heart Surgery 11.4 G/DL (12.0-16.0); Immature Granulocytes % 0.8 %; Immature Granulocytes Absolute 0.08 #; Lymphocytes # 1.5 10*3/uL (1.4-4.0); Lymphocytes % 15.9 % (21.3-54.2); Mean Corpuscular HGB Conc 32.3 GM/DL (32-36); Mean Corpuscular Volume 85.6 FL (87-102); Mean Platelet Volume 11.5 FL (9.6-12.0); Monocytes % 3.8 % (1.7-12.7); Platelet Count 108 T/CUMM (130-400); Potassium Heart/CVR 3.8 MMOL/L (3.5-5.1); Red Blood Count 4.09 MC/CUMM (3.8-5.5); Red Cell Distribution Width 14.7 % (9.3-17.3); White Blood Count 9.5 T/CUMM (4-12)
[2020-07-06 12:51] LABS: INR 1.2; PT Patient Result 13.5 SECS (10.5-12.0); Partial Thromboplastin Time 31.4 SECS (23.9-33.8)
[2020-07-06 13:10] LABS: Albumin 2.6 G/DL (3.4-5.0); Bilirubin,Total 0.8 MG/DL (0.2-1.0); Calcium 7.9 MG/DL (8.5-10.1); Osmolality,Calculated 291.4 MOS/KG (273-304); Potassium 3.9 MMOL/L (3.5-5.1)
[2020-07-06] MEDS: POTASSIUM CHLORIDE RIDER 20 MEQ in PREMIX 1 EACH IV PRN ×5 (13:19→20:15)
[2020-07-06] MEDS: SODIUM CHLORIDE 0.45% 1,000 ML IV SCH ×2 (13:20)
[2020-07-06 13:21] LABS: CKMB % 9.4 %
[2020-07-06 13:24] LABS: Troponin I 17.7 NG/ML (0.00-0.045)
[2020-07-06] MEDS: ALBUMIN 5% 12.5 GM/250 ML VIAL IV PRN ×4 (13:27→23:16)
[2020-07-06 13:30] LABS: Acanthocytes Few; Band Neutrophils 8 % (0-10); Lymphocytes 7 % (20-55); Ovalocytes Few; Segmented Neutrophils 82 % (50-85); Total Cells Counted 100
[2020-07-06 13:31] LABS: Platelet Estimate Adequate; Polychromasia Slight
[2020-07-06] MEDS: POTASSIUM CHLORIDE RIDER 10 MEQ in PREMIX 1 EACH IV PRN ×2 (13:42→15:40)
[2020-07-06] MEDS: INSULIN REGULAR DRIP 100 ML IV SCH (13:56)
[2020-07-06 14:46] LABS: ABG Base Excess -3.1 MMOL/L (-2.5-2.5); ABG HCO3 21.9 MMOL/L (20-26); ABG Oxygen Saturation 99.7 % (95-100); ABG PCO2 30.2 MM HG (35-48); ABG PH 7.432 (7.35-7.45); ABG TCO2 17.7 MMOL/L (23-27); Glucose Heart Surgery 310 MG/DL (74-106); Hematocrit Heart Surgery 38.2 PERCENT (37-47); Hemoglobin Heart Surgery 12.4 G/DL (12.0-16.0); Potassium Heart/CVR 3.8 MMOL/L (3.5-5.1)
[2020-07-06 15:41] LABS: Hematocrit Heart Surgery 31.3 PERCENT (37-47); Hemoglobin Heart Surgery 10.1 G/DL (12.0-16.0); PH Patient Temp Venous 7.349; PO2 Patient Temp Venous 28.5 MM HG; Potassium Heart/CVR 4.7 MMOL/L (3.5-5.1); VBG Base Excess -1.5 MEQ/L (0-4); VBG HCO3 22.3 MEQ/L (24-28); VBG Oxygen Saturation 44.4 %; VBG PH 7.349; VBG PO2 28.5 MMHG (17-40); VBG Total CO2 22.4 MMOL/L
[2020-07-06] MEDS ORDERED: NITROGLYCERIN DRIP 50 MG/250 ML BOTTLE IV ONE (16:40)
[2020-07-06] MEDS ORDERED: NITROGLYCERIN DRIP 50 MG/250 ML BOTTLE IV PRN (16:51)
[2020-07-06 17:14] LABS: ABG Base Excess -3.6 MMOL/L (-2.5-2.5); ABG HCO3 21.4 MMOL/L (20-26); ABG Oxygen Saturation 99.7 % (95-100); ABG PH 7.384 (7.35-7.45); ABG TCO2 19.2 MMOL/L (23-27); Glucose Heart Surgery 236 MG/DL (74-106); Hematocrit Heart Surgery 28.2 PERCENT (37-47); Hemoglobin Heart Surgery 9.1 G/DL (12.0-16.0); Potassium Heart/CVR 3.6 MMOL/L (3.5-5.1)
[2020-07-06 19:41] LABS: ABG Base Excess -5.4 MMOL/L (-2.5-2.5); ABG Oxygen Saturation 99.5 % (95-100); ABG PCO2 34.2 MM HG (35-48); ABG TCO2 17.6 MMOL/L (23-27); Glucose Heart Surgery 257 MG/DL (74-106); Hematocrit Heart Surgery 31.2 PERCENT (37-47); Hemoglobin Heart Surgery 10.1 G/DL (12.0-16.0); Potassium Heart/CVR 4.1 MMOL/L (3.5-5.1)
[2020-07-06] MEDS: CEFUROXIME INJ 1,500 MG in SODIUM CHLORIDE 0.9% 100 ML IV SCH (19:47)
[2020-07-06 20:00] LABS: CKMB % 6.7 %
[2020-07-06 20:01] LABS: Troponin I 15.6 NG/ML (0.00-0.045)
[2020-07-06] MEDS: CHLORHEXIDINE 0.12% ORAL RINSE 60 ML BOTTLE SWISH/SPIT SCH (20:20)
[2020-07-06] MEDS ORDERED: FUROSEMIDE 40 MG/4 ML VIAL IV PRN (20:47)
[2020-07-06 23:41] LABS: ABG Base Excess -2.9 MMOL/L (-2.5-2.5); ABG Oxygen Saturation 99.6 % (95-100); ABG PCO2 32.6 MM HG (35-48); ABG PH 7.416 (7.35-7.45); ABG TCO2 19.2 MMOL/L (23-27); Glucose Heart Surgery 209 MG/DL (74-106); Hematocrit Heart Surgery 28.7 PERCENT (37-47); Hemoglobin Heart Surgery 9.3 G/DL (12.0-16.0); Potassium Heart/CVR 4.1 MMOL/L (3.5-5.1)
[2020-07-07] MEDS: INSULIN REGULAR DRIP 100 ML IV SCH (00:25)
[2020-07-07 00:50] LABS: ABG HCO3 22.7 MMOL/L (20-26); ABG Oxygen Saturation 99.8 % (95-100); ABG TCO2 20.4 MMOL/L (23-27); Glucose Heart Surgery 172 MG/DL (74-106); Hematocrit Heart Surgery 27.8 PERCENT (37-47); Potassium Heart/CVR 4.1 MMOL/L (3.5-5.1)
[2020-07-07] MEDS ORDERED: SODIUM CHLORIDE 0.9% 1,000 ML IV PRN (01:26)
[2020-07-07] MEDS: POTASSIUM CHLORIDE RIDER 20 MEQ in PREMIX 1 EACH IV PRN (01:42)
[2020-07-07] MEDS: MORPHINE 4 MG/1 ML VIAL IV PRN ×2 (04:34→06:54)
[2020-07-07 04:37] LABS: ABG Base Excess -2.2 MMOL/L (-2.5-2.5); ABG HCO3 22.6 MMOL/L (20-26); ABG Oxygen Saturation 99.6 % (95-100); ABG PCO2 36.3 MM HG (35-48); ABG PH 7.394 (7.35-7.45); ABG TCO2 20.1 MMOL/L (23-27); Glucose Heart Surgery 146 MG/DL (74-106); Hematocrit Heart Surgery 31.9 PERCENT (37-47); Hemoglobin Heart Surgery 10.3 G/DL (12.0-16.0); Potassium Heart/CVR 4.5 MMOL/L (3.5-5.1)
[2020-07-07 04:57] LABS: Basophils % 0.1 % (0.0-0.8); Hematocrit 31.5 VOL% (35.7-47.0); Hemoglobin 10.2 GM/DL (12.0-16.0); Immature Granulocytes % 0.5 %; Immature Granulocytes Absolute 0.06 #; Lymphocytes # 1.4 10*3/uL (1.4-4.0); Lymphocytes % 10.9 % (21.3-54.2); Mean Corpuscular HGB Conc 32.4 GM/DL (32-36); Mean Corpuscular Volume 86.5 FL (87-102); Monocytes % 9.8 % (1.7-12.7); Neutrophils % 78.7 % (38.7-73.9); Platelet Count 87 T/CUMM (130-400); Red Blood Count 3.64 MC/CUMM (3.8-5.5); Red Cell Distribution Width 15.4 % (9.3-17.3); White Blood Count 12.7 T/CUMM (4-12)
[2020-07-07 05:01] LABS: CKMB % 4.4 %; Troponin I 12.7 NG/ML (0.00-0.045)
[2020-07-07 05:15] LABS: Albumin 3.3 G/DL (3.4-5.0); Bilirubin,Direct 0.24 MG/DL (0.0-0.20); Bilirubin,Total 0.8 MG/DL (0.2-1.0); Potassium 4.6 MMOL/L (3.5-5.1)
[2020-07-07] MEDS: POTASSIUM CHLORIDE RIDER 10 MEQ in PREMIX 1 EACH IV PRN ×2 (05:36→08:03)
[2020-07-07 05:56] LABS: Anisocytosis 1+; Band Neutrophils 36 % (0-10); Burr Cells Few; Lymphocytes 8 % (20-55); Platelet Estimate Decreased; Segmented Neutrophils 50 % (50-85); Total Cells Counted 100
[2020-07-07 05:57] LABS: Ovalocytes Few; Poikilocytosis Slight
[2020-07-07] MEDS: CEFUROXIME INJ 1,500 MG in SODIUM CHLORIDE 0.9% 100 ML IV SCH ×2 (06:54→19:12)
[2020-07-07] MEDS ORDERED: DEXTROSE 50% 25 GM/50 ML VIAL IV PRN (07:28)
[2020-07-07] MEDS ORDERED: GLUCAGON 1 MG VIAL IM PRN (07:28)
[2020-07-07 07:47] LABS: ABG Base Excess -3.4 MMOL/L (-2.5-2.5); ABG HCO3 21.6 MMOL/L (20-26); ABG Oxygen Saturation 99.3 % (95-100); ABG PCO2 38.4 MM HG (35-48); ABG TCO2 19.7 MMOL/L (23-27); Glucose Heart Surgery 176 MG/DL (74-106); Hematocrit Heart Surgery 32.7 PERCENT (37-47); Hemoglobin Heart Surgery 10.6 G/DL (12.0-16.0); Potassium Heart/CVR 4.3 MMOL/L (3.5-5.1)
[2020-07-07] MEDS: INSULIN REGULAR 100 UNIT/ML SUBCUT SCH ×4 (08:02→21:26)
[2020-07-07] MEDS ORDERED: diphenhydrAMINE CAP 25 MG CAPSULE PO PRN (08:59)
[2020-07-07] MEDS ORDERED: hydrALAZINE 20 MG/1 ML VIAL IV PRN (08:59)
[2020-07-07] MEDS ORDERED: KETOROLAC 0.5% OPH SOLN 5 ML BOTTLE RIGHT EYE SCH (09:00)
[2020-07-07] MEDS ORDERED: QUINAPRIL HYDROCHLOROTHIAZIDE PO SCH (09:00)
[2020-07-07] MEDS ORDERED: MOXIFLOXACIN 0.5% OPH SOLN 3 ML BOTTLE RIGHT EYE SCH (09:00)
[2020-07-07] MEDS ORDERED: prednisoLONE ACETATE 1% OPH SUSP 5 ML BOTTLE RIGHT EYE SCH (09:00)
[2020-07-07] MEDS: CHOLECALCIFEROL 1,000 UNIT TABLET PO SCH (10:08)
[2020-07-07] MEDS: ASCORBIC ACID 500 MG TABLET PO SCH ×2 (10:09→21:27)
[2020-07-07] MEDS: METOPROLOL TARTRATE 25 MG TABLET PO SCH ×2 (10:10→21:27)
[2020-07-07] MEDS: CYANOCOBALAMIN 500 MCG TABLET PO SCH (10:10)
[2020-07-07] MEDS: CHLORHEXIDINE 0.12% ORAL RINSE 60 ML BOTTLE SWISH/SPIT SCH ×2 (10:11→21:29)
[2020-07-07] MEDS: ENALAPRIL 20 MG TABLET PO SCH (10:11)
[2020-07-07] MEDS: ASPIRIN CHEW 81 MG TABLET PO SCH (10:11)
[2020-07-07] MEDS: KETOROLAC 0.5% OPH SOLN 5 ML BOTTLE RIGHT EYE SCH ×4 (10:13→21:28)
[2020-07-07] MEDS: prednisoLONE ACETATE 1% OPH SUSP 5 ML BOTTLE RIGHT EYE SCH ×4 (10:13→21:28)
[2020-07-07] MEDS: MOXIFLOXACIN 0.5% OPH SOLN 3 ML BOTTLE RIGHT EYE SCH ×4 (10:14→21:28)
[2020-07-07] MEDS: lisinopriL 5 MG TABLET PO SCH (10:36)
[2020-07-07] MEDS: VITAMIN E 400 UNIT CAPSULE PO SCH (10:37)
[2020-07-07 13:16] LABS: CKMB % 3.5 %
[2020-07-07 13:20] LABS: Troponin I 11.2 NG/ML (0.00-0.045)
[2020-07-07] MEDS: SODIUM CHLORIDE 0.45% 1,000 ML IV SCH ×2 (13:30→14:03)
[2020-07-07] MEDS: LORATADINE 10 MG TABLET PO SCH (21:27)
[2020-07-07] MEDS: ATORVASTATIN 80 MG TABLET PO SCH (21:27)
[2020-07-08 05:28] LABS: Hematocrit 29.8 VOL% (35.7-47.0); Hemoglobin 9.6 GM/DL (12.0-16.0); Immature Granulocytes % 0.5 %; Immature Granulocytes Absolute 0.07 #; Lymphocytes # 1.8 10*3/uL (1.4-4.0); Lymphocytes % 12.2 % (21.3-54.2); Mean Corpuscular HGB Conc 32.2 GM/DL (32-36); Mean Corpuscular Volume 88.2 FL (87-102); Neutrophils % 81.3 % (38.7-73.9); Platelet Count 99 T/CUMM (130-400); Red Blood Count 3.38 MC/CUMM (3.8-5.5); Red Cell Distribution Width 16.1 % (9.3-17.3); White Blood Count 14.8 T/CUMM (4-12)
[2020-07-08] MEDS: TRAVOPROST 0.004% OPH SOLN 2.5 ML BOTTLE BOTH EYES SCH ×2 (05:43→22:40)
[2020-07-08 05:55] LABS: Albumin 2.8 G/DL (3.4-5.0); Bilirubin,Direct 0.18 MG/DL (0.0-0.20); Bilirubin,Total 0.6 MG/DL (0.2-1.0); Calcium 8.2 MG/DL (8.5-10.1); Osmolality,Calculated 285.1 MOS/KG (273-304); Potassium 4.3 MMOL/L (3.5-5.1); Total Protein 6.2 G/DL (6.4-8.2)
[2020-07-08 06:21] LABS: Anisocytosis 1+; Band Neutrophils 24 % (0-10); Lymphocytes 17 % (20-55); Platelet Estimate Decreased; Segmented Neutrophils 56 % (50-85); Total Cells Counted 100
[2020-07-08 06:25] LABS: Burr Cells Few; Ovalocytes Few
[2020-07-08] MEDS: INSULIN REGULAR 100 UNIT/ML SUBCUT SCH ×4 (08:21→22:32)
[2020-07-08] MEDS: KETOROLAC 0.5% OPH SOLN 5 ML BOTTLE RIGHT EYE SCH ×4 (08:48→22:40)
[2020-07-08] MEDS: METOPROLOL TARTRATE 25 MG TABLET PO SCH ×2 (08:49→22:28)
[2020-07-08] MEDS: MOXIFLOXACIN 0.5% OPH SOLN 3 ML BOTTLE RIGHT EYE SCH ×4 (08:49→22:41)
[2020-07-08] MEDS: CHOLECALCIFEROL 1,000 UNIT TABLET PO SCH (08:49)
[2020-07-08] MEDS: CHLORHEXIDINE 0.12% ORAL RINSE 60 ML BOTTLE SWISH/SPIT SCH ×2 (08:49→22:45)
[2020-07-08] MEDS: ASPIRIN CHEW 81 MG TABLET PO SCH (08:49)
[2020-07-08] MEDS: ASCORBIC ACID 500 MG TABLET PO SCH ×2 (08:49→22:29)
[2020-07-08] MEDS: prednisoLONE ACETATE 1% OPH SUSP 5 ML BOTTLE RIGHT EYE SCH ×4 (08:49→22:42)
[2020-07-08] MEDS: CYANOCOBALAMIN 500 MCG TABLET PO SCH (08:49)
[2020-07-08] MEDS: VITAMIN E 400 UNIT CAPSULE PO SCH (08:49)
[2020-07-08] MEDS ORDERED: MAGNESIUM HYDROXIDE SUSP 30 ML UDCUP PO PRN (09:43)
[2020-07-08] MEDS ORDERED: ZALEPLON 5 MG CAPSULE PO PRN (09:43)
[2020-07-08] MEDS ORDERED: ALUMINUM/MAGNES/SIMETH MAX STR 30 ML UDCUP PO PRN (09:43)
[2020-07-08] MEDS ORDERED: MAGNESIUM SULF RIDER 2 GM/50 ML PREMIX IV PRN (09:43)
[2020-07-08] MEDS ORDERED: KETOROLAC 10 MG TABLET PO PRN (09:43)
[2020-07-08] MEDS ORDERED: GLUCAGON 1 MG VIAL IM PRN (09:43)
[2020-07-08] MEDS ORDERED: POTASSIUM CHLORIDE 20 MEQ TABLET PO PRN (09:43)
[2020-07-08] MEDS ORDERED: SODIUM CHLOR 0.45% KCL 20 MEQ 20 MEQ/1,000 ML BAG IV SCH (09:43)
[2020-07-08] MEDS ORDERED: MAGNESIUM SULF RIDER 4 GM/100 ML PREMIX IV PRN (09:43)
[2020-07-08] MEDS: ENALAPRIL 20 MG TABLET PO SCH (10:05)
[2020-07-08] MEDS: hydroCHLOROthiazide 25 MG TABLET PO SCH (10:05)
[2020-07-08] MEDS: lisinopriL 5 MG TABLET PO SCH (10:06)
[2020-07-08] MEDS: KETOROLAC 30 MG/1 ML VIAL IV PRN ×3 (10:07→22:16)
[2020-07-08] MEDS ORDERED: DEXTROSE 50% 25 GM/50 ML VIAL IV PRN (12:31)
[2020-07-08] MEDS: ALBUTEROL/IPRATROPIUM 3 ML NEB RESP TX SCH ×2 (14:03→19:27)
[2020-07-08] MEDS: ONDANSETRON 4 MG/2 ML VIAL IV PRN (22:18)
[2020-07-08] MEDS: ACETAMINOPHEN 325 MG TABLET PO PRN (22:23)
[2020-07-08] MEDS: LORATADINE 10 MG TABLET PO SCH (22:24)
[2020-07-08] MEDS: ATORVASTATIN 80 MG TABLET PO SCH (22:28)
[2020-07-09] MEDS: ALBUTEROL/IPRATROPIUM 3 ML NEB RESP TX SCH ×4 (00:23→19:40)
[2020-07-09] MEDS ORDERED: FUROSEMIDE 40 MG/4 ML VIAL IV ONE (06:00)
[2020-07-09 06:01] LABS: Basophils % 0.1 % (0.0-0.8); Hemoglobin 9.1 GM/DL (12.0-16.0); Immature Granulocytes % 0.9 %; Lymphocytes # 1.1 10*3/uL (1.4-4.0); Lymphocytes % 9.1 % (21.3-54.2); Mean Corpuscular HGB Conc 32.5 GM/DL (32-36); Mean Corpuscular Volume 88.3 FL (87-102); Mean Platelet Volume 11.2 FL (9.6-12.0); Monocytes % 4.6 % (1.7-12.7); Neutrophils % 85.3 % (38.7-73.9); Platelet Count 112 T/CUMM (130-400); Red Blood Count 3.17 MC/CUMM (3.8-5.5); White Blood Count 11.6 T/CUMM (4-12)
[2020-07-09] MEDS: ONDANSETRON 4 MG/2 ML VIAL IV PRN (06:28)
[2020-07-09] MEDS: oxyCODONE/ACETAMINOPHEN 5-325 MG TABLET PO PRN ×2 (06:28→12:02)
[2020-07-09 06:29] LABS: Alanine Aminotransferase 23 U/L (13-56); Albumin 2.7 G/DL (3.4-5.0); Alkaline Phosphatase 48 U/L (45-117); Aspartate Amino Transferase 66 U/L (0-37); Bilirubin,Indirect 0.2 MG/DL (0.0-1.0); Blood Urea Nitrogen 18 MG/DL (7-18); Calcium 7.9 MG/DL (8.5-10.1); Carbon Dioxide 27 MMOL/L (21-32); Estimated Glom Filtration Rate 89 ML/MIN; Glucose 82 MG/DL (74-106); Osmolality,Calculated 281.3 MOS/KG (273-304); Potassium 3.9 MMOL/L (3.5-5.1); Sodium 141 MMOL/L (136-145); Total Protein 6.1 G/DL (6.4-8.2)
[2020-07-09 06:31] LABS: Band Neutrophils 2 % (0-10); Hypochromasia 1+; Lymphocytes 10 % (20-55); Segmented Neutrophils 85 % (50-85); Total Cells Counted 100
[2020-07-09 06:32] LABS: Microcytosis 1+; Ovalocytes Slight; Platelet Estimate Adequate
[2020-07-09] MEDS: INSULIN REGULAR 100 UNIT/ML SUBCUT SCH ×4 (09:03→20:22)
[2020-07-09] MEDS: FERROUS SULFATE 325 MG TABLET PO SCH (09:11)
[2020-07-09] MEDS: PANTOPRAZOLE 40 MG TABLET PO SCH (09:11)
[2020-07-09] MEDS: CYANOCOBALAMIN 500 MCG TABLET PO SCH (09:11)
[2020-07-09] MEDS: ASCORBIC ACID 500 MG TABLET PO SCH ×2 (09:11→20:23)
[2020-07-09] MEDS: DOCUSATE SODIUM 100 MG CAPSULE PO SCH (09:12)
[2020-07-09] MEDS: CHOLECALCIFEROL 1,000 UNIT TABLET PO SCH (09:12)
[2020-07-09] MEDS: hydroCHLOROthiazide 25 MG TABLET PO SCH (09:14)
[2020-07-09] MEDS: ASPIRIN CHEW 81 MG TABLET PO SCH ×2 (09:14→09:23)
[2020-07-09] MEDS: KETOROLAC 0.5% OPH SOLN 5 ML BOTTLE RIGHT EYE SCH ×4 (09:14→20:22)
[2020-07-09] MEDS: CHLORHEXIDINE 0.12% ORAL RINSE 60 ML BOTTLE SWISH/SPIT SCH ×3 (09:15→20:25)
[2020-07-09] MEDS: ENALAPRIL 20 MG TABLET PO SCH (09:15)
[2020-07-09] MEDS: lisinopriL 5 MG TABLET PO SCH (09:15)
[2020-07-09] MEDS: METOPROLOL TARTRATE 25 MG TABLET PO SCH ×2 (09:15→20:22)
[2020-07-09] MEDS: MOXIFLOXACIN 0.5% OPH SOLN 3 ML BOTTLE RIGHT EYE SCH ×4 (09:16→20:22)
[2020-07-09] MEDS: prednisoLONE ACETATE 1% OPH SUSP 5 ML BOTTLE RIGHT EYE SCH ×4 (09:17→20:22)
[2020-07-09] MEDS: VITAMIN E 400 UNIT CAPSULE PO SCH (09:22)
[2020-07-09] MEDS: KETOROLAC 30 MG/1 ML VIAL IV PRN ×2 (10:22→23:15)
[2020-07-09] MEDS: ACETAMINOPHEN 325 MG TABLET PO PRN (12:02)
[2020-07-09] MEDS: TRAVOPROST 0.004% OPH SOLN 2.5 ML BOTTLE BOTH EYES SCH (20:22)
[2020-07-09] MEDS: ATORVASTATIN 80 MG TABLET PO SCH (20:22)
[2020-07-09] MEDS: LORATADINE 10 MG TABLET PO SCH (20:23)
[2020-07-10] MEDS: ACETAMINOPHEN 325 MG TABLET PO PRN (00:27)
[2020-07-10] MEDS: ALBUTEROL/IPRATROPIUM 3 ML NEB RESP TX SCH ×4 (01:21→19:14)
[2020-07-10] MEDS: oxyCODONE/ACETAMINOPHEN 5-325 MG TABLET PO PRN ×2 (02:21→13:44)
[2020-07-10 05:47] LABS: Basophils % 0.1 % (0.0-0.8); Eosinophils % 0.1 % (0.00-10.9); Hematocrit 26.9 VOL% (35.7-47.0); Hemoglobin 8.5 GM/DL (12.0-16.0); Immature Granulocytes % 1.3 %; Immature Granulocytes Absolute 0.16 #; Lymphocytes # 0.8 10*3/uL (1.4-4.0); Lymphocytes % 6.6 % (21.3-54.2); Mean Corpuscular HGB Conc 31.6 GM/DL (32-36); Mean Platelet Volume 11.7 FL (9.6-12.0); Monocytes % 5.2 % (1.7-12.7); NRBC # 0.02 10*3/uL; Neutrophils % 86.7 % (38.7-73.9); Platelet Count 125 T/CUMM (130-400); Red Blood Count 2.99 MC/CUMM (3.8-5.5); White Blood Count 12.4 T/CUMM (4-12)
[2020-07-10 06:07] LABS: Band Neutrophils 3 % (0-10); Hypochromasia 1+; Lymphocytes 8 % (20-55); Microcytosis 1+; Platelet Estimate Normal; Segmented Neutrophils 87 % (50-85); Total Cells Counted 100
[2020-07-10 06:15] LABS: Alanine Aminotransferase 25 U/L (13-56); Albumin 2.6 G/DL (3.4-5.0); Alkaline Phosphatase 53 U/L (45-117); Aspartate Amino Transferase 71 U/L (0-37); Bilirubin,Indirect 0.5 MG/DL (0.0-1.0); Blood Urea Nitrogen 22 MG/DL (7-18); Carbon Dioxide 28 MMOL/L (21-32); Estimated Glom Filtration Rate 61 ML/MIN; Glucose 92 MG/DL (74-106); Osmolality,Calculated 279.5 MOS/KG (273-304); Sodium 139 MMOL/L (136-145); Total Protein 6.3 G/DL (6.4-8.2)
[2020-07-10] MEDS ORDERED: FUROSEMIDE 40 MG/4 ML VIAL IV ONE (08:37)
[2020-07-10] MEDS: INSULIN REGULAR 100 UNIT/ML SUBCUT SCH ×4 (09:31→20:31)
[2020-07-10] MEDS: DOCUSATE SODIUM 100 MG CAPSULE PO SCH (09:35)
[2020-07-10] MEDS: FERROUS SULFATE 325 MG TABLET PO SCH (09:36)
[2020-07-10] MEDS: CYANOCOBALAMIN 500 MCG TABLET PO SCH (09:36)
[2020-07-10] MEDS: ENALAPRIL 10 MG TABLET PO SCH (09:36)
[2020-07-10] MEDS: ASCORBIC ACID 500 MG TABLET PO SCH ×2 (09:36→20:25)
[2020-07-10] MEDS: ASPIRIN CHEW 81 MG TABLET PO SCH (09:37)
[2020-07-10] MEDS: PANTOPRAZOLE 40 MG TABLET PO SCH (09:37)
[2020-07-10] MEDS: KETOROLAC 30 MG/1 ML VIAL IV PRN ×2 (09:37→20:28)
[2020-07-10] MEDS: CHOLECALCIFEROL 1,000 UNIT TABLET PO SCH (09:37)
[2020-07-10] MEDS: hydroCHLOROthiazide 25 MG TABLET PO SCH ×2 (09:39→09:50)
[2020-07-10] MEDS: METOPROLOL TARTRATE 25 MG TABLET PO SCH ×2 (09:39→20:32)
[2020-07-10] MEDS: VITAMIN E 400 UNIT CAPSULE PO SCH (09:39)
[2020-07-10] MEDS: MOXIFLOXACIN 0.5% OPH SOLN 3 ML BOTTLE RIGHT EYE SCH ×4 (09:40→20:33)
[2020-07-10] MEDS: KETOROLAC 0.5% OPH SOLN 5 ML BOTTLE RIGHT EYE SCH ×4 (09:40→20:28)
[2020-07-10] MEDS: prednisoLONE ACETATE 1% OPH SUSP 5 ML BOTTLE RIGHT EYE SCH ×4 (09:40→20:33)
[2020-07-10] MEDS: CHLORHEXIDINE 0.12% ORAL RINSE 60 ML BOTTLE SWISH/SPIT SCH ×2 (09:40→20:33)
[2020-07-10] MEDS: LORATADINE 10 MG TABLET PO SCH (20:25)
[2020-07-10] MEDS: ATORVASTATIN 80 MG TABLET PO SCH (20:25)
[2020-07-10] MEDS: TRAVOPROST 0.004% OPH SOLN 2.5 ML BOTTLE BOTH EYES SCH (20:33)
[2020-07-11] MEDS: oxyCODONE/ACETAMINOPHEN 5-325 MG TABLET PO PRN ×2 (00:12→22:43)
[2020-07-11] MEDS: ALBUTEROL/IPRATROPIUM 3 ML NEB RESP TX SCH ×3 (02:00→15:34)
[2020-07-11 04:24] LABS: Basophils % 0.1 % (0.0-0.8); Eosinophils % 0.3 % (0.00-10.9); Hematocrit 24.8 VOL% (35.7-47.0); Hemoglobin 8.3 GM/DL (12.0-16.0); Immature Granulocytes % 1.4 %; Immature Granulocytes Absolute 0.15 #; Lymphocytes # 0.9 10*3/uL (1.4-4.0); Lymphocytes % 8.5 % (21.3-54.2); Mean Corpuscular HGB Conc 33.5 GM/DL (32-36); Mean Corpuscular Volume 86.4 FL (87-102); Mean Platelet Volume 11.1 FL (9.6-12.0); Monocytes % 4.2 % (1.7-12.7); Neutrophils % 85.5 % (38.7-73.9); Platelet Count 162 T/CUMM (130-400); Red Blood Count 2.87 MC/CUMM (3.8-5.5); White Blood Count 10.9 T/CUMM (4-12)
[2020-07-11 04:44] LABS: Hypochromasia 1+; Lymphocytes 9 % (20-55); Microcytosis 1+; Platelet Estimate Adequate; Segmented Neutrophils 85 % (50-85); Total Cells Counted 100
[2020-07-11 04:49] LABS: Osmolality,Calculated 277.8 MOS/KG (273-304); Potassium 4.1 MMOL/L (3.5-5.1)
[2020-07-11] MEDS ORDERED: AZITHROMYCIN INJ 500 MG in SODIUM CHLORIDE 0.9% 250 ML IV ONE (07:48)
[2020-07-11] MEDS: INSULIN REGULAR 100 UNIT/ML SUBCUT SCH ×4 (08:08→20:11)
[2020-07-11] MEDS: VITAMIN E 400 UNIT CAPSULE PO SCH (08:44)
[2020-07-11] MEDS: hydroCHLOROthiazide 25 MG TABLET PO SCH (08:44)
[2020-07-11] MEDS: DOCUSATE SODIUM 100 MG CAPSULE PO SCH (08:44)
[2020-07-11] MEDS: CHOLECALCIFEROL 1,000 UNIT TABLET PO SCH (08:44)
[2020-07-11] MEDS: ENALAPRIL 10 MG TABLET PO SCH (08:45)
[2020-07-11] MEDS: ASCORBIC ACID 500 MG TABLET PO SCH ×2 (08:45→20:46)
[2020-07-11] MEDS: METOPROLOL TARTRATE 25 MG TABLET PO SCH ×2 (08:45→20:46)
[2020-07-11] MEDS: CYANOCOBALAMIN 500 MCG TABLET PO SCH (08:45)
[2020-07-11] MEDS: ZINC GLUCONATE 50 MG TABLET PO SCH (08:46)
[2020-07-11] MEDS: FERROUS SULFATE 325 MG TABLET PO SCH (08:46)
[2020-07-11] MEDS: ASPIRIN CHEW 81 MG TABLET PO SCH (08:46)
[2020-07-11] MEDS: PANTOPRAZOLE 40 MG TABLET PO SCH (08:46)
[2020-07-11] MEDS: FAMOTIDINE 20 MG TABLET PO SCH ×2 (08:46→20:46)
[2020-07-11] MEDS: ENOXAPARIN 40 MG/0.4 ML SYRINGE SUBCUT SCH ×2 (08:51→20:45)
[2020-07-11] MEDS: DEXAMETHASONE 4 MG/1 ML VIAL IV SCH (08:52)
[2020-07-11] MEDS: KETOROLAC 0.5% OPH SOLN 5 ML BOTTLE RIGHT EYE SCH ×4 (08:54→23:26)
[2020-07-11] MEDS: prednisoLONE ACETATE 1% OPH SUSP 5 ML BOTTLE RIGHT EYE SCH ×4 (08:54→20:46)
[2020-07-11] MEDS: MOXIFLOXACIN 0.5% OPH SOLN 3 ML BOTTLE RIGHT EYE SCH ×4 (08:55→20:46)
[2020-07-11] MEDS: CHLORHEXIDINE 0.12% ORAL RINSE 60 ML BOTTLE SWISH/SPIT SCH ×2 (10:08→20:46)
[2020-07-11] MEDS ORDERED: SODIUM CHLORIDE 0.9% 1,000 ML IV PRN (11:37)
[2020-07-11] MEDS ORDERED: REMDESIVIR 200 MG in SODIUM CHLORIDE 0.9% 210 ML IV ONE (12:30)
[2020-07-11] MEDS: KETOROLAC 30 MG/1 ML VIAL IV PRN ×2 (16:30→22:17)
[2020-07-11] MEDS: ALBUTEROL INHALER 18 GM INH SCH (20:35)
[2020-07-11] MEDS: LORATADINE 10 MG TABLET PO SCH (20:45)
[2020-07-11] MEDS: ATORVASTATIN 80 MG TABLET PO SCH (20:46)
[2020-07-11] MEDS: TRAVOPROST 0.004% OPH SOLN 2.5 ML BOTTLE BOTH EYES SCH (21:05)
[2020-07-12] MEDS: ALBUTEROL INHALER 18 GM INH SCH ×4 (00:34→21:20)
[2020-07-12] MEDS ORDERED: CLORAZEPATE 3.75 MG TABLET PO ONE ×3 (01:45→02:00)
[2020-07-12 04:34] LABS: ABG Base Excess 0.9 MMOL/L (-2.5-2.5); ABG HCO3 25.2 MMOL/L (20-26); ABG PCO2 44.5 MM HG (35-48); ABG PH 7.382 (7.35-7.45); ABG PO2 93.4 MM HG (80-95); ABG TCO2 22.8 MMOL/L (23-27)
[2020-07-12 05:49] LABS: Basophils % 0.1 % (0.0-0.8); Hematocrit 29.9 VOL% (35.7-47.0); Hemoglobin 9.5 GM/DL (12.0-16.0); Immature Granulocytes % 2.7 %; Immature Granulocytes Absolute 0.45 #; Lymphocytes # 1.2 10*3/uL (1.4-4.0); Lymphocytes % 7.5 % (21.3-54.2); Mean Corpuscular HGB Conc 31.8 GM/DL (32-36); Mean Corpuscular Volume 88.7 FL (87-102); Mean Platelet Volume 11.2 FL (9.6-12.0); Monocytes % 4.8 % (1.7-12.7); Neutrophils % 84.9 % (38.7-73.9); Platelet Count 277 T/CUMM (130-400); Red Blood Count 3.37 MC/CUMM (3.8-5.5); Red Cell Distribution Width 15.9 % (9.3-17.3); White Blood Count 16.5 T/CUMM (4-12)
[2020-07-12] MEDS ORDERED: ROCURONIUM 100 MG/10 ML VIAL IV ONE ×2 (06:03→06:20)
[2020-07-12] MEDS ORDERED: ETOMIDATE 20 MG/10 ML VIAL IV ONE ×2 (06:03→06:20)
[2020-07-12 06:12] LABS: Alanine Aminotransferase 25 U/L (13-56); Albumin 2.6 G/DL (3.4-5.0); Alkaline Phosphatase 72 U/L (45-117); Aspartate Amino Transferase 110 U/L (0-37); Bilirubin,Indirect 0.8 MG/DL (0.0-1.0); Blood Urea Nitrogen 30 MG/DL (7-18); Carbon Dioxide 27 MMOL/L (21-32); Estimated Glom Filtration Rate 59 ML/MIN; Glucose 120 MG/DL (74-106); Osmolality,Calculated 287.3 MOS/KG (273-304); Sodium 141 MMOL/L (136-145); Total Protein 7.2 G/DL (6.4-8.2)
[2020-07-12 06:39] LABS: Band Neutrophils 4 % (0-10); Hypochromasia 2+; Lymphocytes 8 % (20-55); Platelet Estimate Normal; Segmented Neutrophils 85 % (50-85); Total Cells Counted 100
[2020-07-12] MEDS: ENOXAPARIN 40 MG/0.4 ML SYRINGE SUBCUT SCH ×2 (08:29→21:21)
[2020-07-12] MEDS: DEXAMETHASONE 4 MG/1 ML VIAL IV SCH (08:30)
[2020-07-12] MEDS: KETOROLAC 0.5% OPH SOLN 5 ML BOTTLE RIGHT EYE SCH ×3 (08:31→21:21)
[2020-07-12] MEDS: INSULIN REGULAR 100 UNIT/ML SUBCUT SCH ×3 (08:31→17:28)
[2020-07-12] MEDS: ASPIRIN CHEW 81 MG TABLET PO SCH (08:33)
[2020-07-12] MEDS: DOCUSATE SODIUM 100 MG CAPSULE PO SCH (08:33)
[2020-07-12] MEDS: FERROUS SULFATE 325 MG TABLET PO SCH (08:34)
[2020-07-12] MEDS: hydroCHLOROthiazide 25 MG TABLET PO SCH (08:34)
[2020-07-12] MEDS: FAMOTIDINE 20 MG TABLET PO SCH (08:34)
[2020-07-12] MEDS: METOPROLOL TARTRATE 25 MG TABLET PO SCH ×2 (08:34→21:22)
[2020-07-12] MEDS: ENALAPRIL 10 MG TABLET PO SCH (08:35)
[2020-07-12] MEDS: prednisoLONE ACETATE 1% OPH SUSP 5 ML BOTTLE RIGHT EYE SCH ×3 (08:35→21:22)
[2020-07-12] MEDS: CHLORHEXIDINE 0.12% ORAL RINSE 60 ML BOTTLE SWISH/SPIT SCH ×2 (08:35→21:17)
[2020-07-12] MEDS: PANTOPRAZOLE 40 MG TABLET PO SCH (08:35)
[2020-07-12] MEDS: MOXIFLOXACIN 0.5% OPH SOLN 3 ML BOTTLE RIGHT EYE SCH ×3 (08:35→21:22)
[2020-07-12] MEDS: CYANOCOBALAMIN 500 MCG TABLET PO SCH (08:35)
[2020-07-12] MEDS: ZINC GLUCONATE 50 MG TABLET PO SCH (08:36)
[2020-07-12] MEDS: AZITHROMYCIN 250 MG TABLET PO SCH (08:36)
[2020-07-12] MEDS: VITAMIN E 400 UNIT CAPSULE PO SCH (08:36)
[2020-07-12] MEDS: ASCORBIC ACID 500 MG TABLET PO SCH ×2 (08:36→21:22)
[2020-07-12] MEDS: CHOLECALCIFEROL 1,000 UNIT TABLET PO SCH (08:36)
[2020-07-12] MEDS: REMDESIVIR 100 MG in SODIUM CHLORIDE 0.9% 100 ML IV SCH (09:29)
[2020-07-12 10:32] LABS: Amorphous Crystals,Urine Moderate /HPF (Few); Bilirubin,Urine Negative (Negative); Blood, Urine Negative (Negative); Glucose,Urine (UA) Negative (Negative); Hyaline Casts,Urine 2 /LPF (0-3); Ketones,Urine 5 mg/dL (Negative); Mucus,Urine Occasional /LPF (Occasional); Nitrite,Urine Negative (Negative); Protein,Urine 30 MG/DL; Squamous Epithelial Cell,Urine Occasional /HPF (0-10); Urine Appearance CLOUDY (Clear); Urine Color Yellow (Yellow); Urine Specific Gravity 1.012 (1.001-1.035)
[2020-07-12] MEDS ORDERED: MIDAZOLAM 100 MG in SODIUM CHLORIDE 0.9% 80 ML IV SCH (11:00)
[2020-07-12 11:36] LABS: ABG Base Excess 2.1 MMOL/L (-2.5-2.5); ABG HCO3 26.3 MMOL/L (20-26); ABG PCO2 37.8 MM HG (35-48); ABG PH 7.447 (7.35-7.45); ABG TCO2 24.1 MMOL/L (23-27)
[2020-07-12] MEDS: MIDAZOLAM 100 MG in SODIUM CHLORIDE 0.9% 80 ML IV PRN (12:50)
[2020-07-12] MEDS: FAMOTIDINE 20 MG/2 ML VIAL IV SCH (18:37)
[2020-07-12] MEDS: ATORVASTATIN 80 MG TABLET PO SCH (21:21)
[2020-07-12] MEDS: LORATADINE 10 MG TABLET PO SCH (21:21)
[2020-07-12] MEDS: TRAVOPROST 0.004% OPH SOLN 2.5 ML BOTTLE BOTH EYES SCH (21:22)
[2020-07-13] MEDS: INSULIN REGULAR 100 UNIT/ML SUBCUT SCH ×4 (01:21→18:47)
[2020-07-13] MEDS: MIDAZOLAM 100 MG in SODIUM CHLORIDE 0.9% 80 ML IV PRN (01:23)
[2020-07-13] MEDS ORDERED: LABETALOL 20 MG/4 ML SYRINGE IV ONE (03:03)
[2020-07-13] MEDS: ALBUTEROL INHALER 18 GM INH SCH ×4 (03:19→20:20)
[2020-07-13 05:01] LABS: Allen Test Positive; Pt O2 Delivery Device Ventilator
[2020-07-13 05:02] LABS: ABG Base Excess 5.2 MMOL/L (-2.5-2.5); ABG HCO3 29.1 MMOL/L (20-26); ABG Oxygen Saturation 98.1 % (95-100); ABG PCO2 37.2 MM HG (35-48); ABG PH 7.495 (7.35-7.45); ABG PO2 96.3 MM HG (80-95); ABG TCO2 26.6 MMOL/L (23-27)
[2020-07-13 05:17] LABS: Basophils % 0.1 % (0.0-0.8); Hematocrit 24.4 VOL% (35.7-47.0); Hemoglobin 8.1 GM/DL (12.0-16.0); Immature Granulocytes % 2.7 %; Lymphocytes # 1.3 10*3/uL (1.4-4.0); Lymphocytes % 11.4 % (21.3-54.2); Mean Corpuscular HGB Conc 33.2 GM/DL (32-36); Mean Corpuscular Volume 85.3 FL (87-102); Mean Platelet Volume 11.4 FL (9.6-12.0); Monocytes % 6.5 % (1.7-12.7); NRBC # 0.03 10*3/uL; Neutrophils % 79.3 % (38.7-73.9); Platelet Count 256 T/CUMM (130-400); Red Blood Count 2.86 MC/CUMM (3.8-5.5); Red Cell Distribution Width 15.9 % (9.3-17.3); White Blood Count 11.3 T/CUMM (4-12)
[2020-07-13 05:43] LABS: Alanine Aminotransferase 24 U/L (13-56); Albumin 2.1 G/DL (3.4-5.0); Alkaline Phosphatase 61 U/L (45-117); Aspartate Amino Transferase 118 U/L (0-37); Bilirubin,Indirect 1.1 MG/DL (0.0-1.0); Blood Urea Nitrogen 39 MG/DL (7-18); Calcium 8.3 MG/DL (8.5-10.1); Carbon Dioxide 28 MMOL/L (21-32); Estimated Glom Filtration Rate 59 ML/MIN; Glucose 69 MG/DL (74-106); Osmolality,Calculated 294.7 MOS/KG (273-304); Potassium 3.6 MMOL/L (3.5-5.1); Sodium 145 MMOL/L (136-145); Total Protein 6.4 G/DL (6.4-8.2)
[2020-07-13 05:48] LABS: Band Neutrophils 3 % (0-10); Hypochromasia 1+; Lymphocytes 7 % (20-55); Microcytosis 1+; Nucleated Red Blood Cells 1 (0-5); Platelet Estimate Adequate; Segmented Neutrophils 83 % (50-85); Total Cells Counted 100
[2020-07-13] MEDS: POTASSIUM CHLORIDE 20 MEQ/15 ML UDCUP PER TUBE PRN (06:30)
[2020-07-13] MEDS: FAMOTIDINE 20 MG/2 ML VIAL IV SCH ×2 (06:48→18:54)
[2020-07-13] MEDS: DEXTROSE 50% 25 GM/50 ML VIAL IV PRN (06:49)
[2020-07-13] MEDS: CHLORHEXIDINE 0.12% ORAL RINSE 60 ML BOTTLE SWISH/SPIT SCH ×2 (08:04→21:00)
[2020-07-13] MEDS: DEXAMETHASONE 4 MG/1 ML VIAL IV SCH (08:08)
[2020-07-13] MEDS: ASPIRIN CHEW 81 MG TABLET PO SCH (08:08)
[2020-07-13] MEDS: DOCUSATE SODIUM 100 MG CAPSULE PO SCH (08:08)
[2020-07-13] MEDS: AZITHROMYCIN 250 MG TABLET PO SCH (08:08)
[2020-07-13] MEDS: CHOLECALCIFEROL 1,000 UNIT TABLET PO SCH (08:08)
[2020-07-13] MEDS: FERROUS SULFATE 325 MG TABLET PO SCH (08:08)
[2020-07-13] MEDS: ENOXAPARIN 40 MG/0.4 ML SYRINGE SUBCUT SCH ×2 (08:08→20:59)
[2020-07-13] MEDS: VITAMIN E 400 UNIT CAPSULE PO SCH (08:09)
[2020-07-13] MEDS: CYANOCOBALAMIN 500 MCG TABLET PO SCH (08:09)
[2020-07-13] MEDS: ASCORBIC ACID 500 MG TABLET PO SCH ×2 (08:09→20:59)
[2020-07-13] MEDS: ZINC GLUCONATE 50 MG TABLET PO SCH (08:09)
[2020-07-13] MEDS: METOPROLOL TARTRATE 25 MG TABLET PO SCH ×2 (08:09→20:59)
[2020-07-13] MEDS: ENALAPRIL 10 MG TABLET PO SCH (08:09)
[2020-07-13] MEDS: hydroCHLOROthiazide 25 MG TABLET PO SCH (08:10)
[2020-07-13] MEDS: KETOROLAC 0.5% OPH SOLN 5 ML BOTTLE RIGHT EYE SCH ×2 (08:11→21:00)
[2020-07-13] MEDS: prednisoLONE ACETATE 1% OPH SUSP 5 ML BOTTLE RIGHT EYE SCH ×2 (08:11→21:00)
[2020-07-13] MEDS: MOXIFLOXACIN 0.5% OPH SOLN 3 ML BOTTLE RIGHT EYE SCH ×2 (08:11→21:00)
[2020-07-13] MEDS: REMDESIVIR 100 MG in SODIUM CHLORIDE 0.9% 100 ML IV SCH (09:11)
[2020-07-13] MEDS: ATORVASTATIN 80 MG TABLET PO SCH (20:59)
[2020-07-13] MEDS: LORATADINE 10 MG TABLET PO SCH (20:59)
[2020-07-13] MEDS: TRAVOPROST 0.004% OPH SOLN 2.5 ML BOTTLE BOTH EYES SCH (21:00)
[2020-07-14] MEDS: INSULIN REGULAR 100 UNIT/ML SUBCUT SCH ×4 (00:56→17:47)
[2020-07-14] MEDS: ALBUTEROL INHALER 18 GM INH SCH ×4 (00:57→18:21)
[2020-07-14] MEDS: MIDAZOLAM 100 MG in SODIUM CHLORIDE 0.9% 80 ML IV PRN (02:07)
[2020-07-14 04:24] LABS: ABG Base Excess 3.5 MMOL/L (-2.5-2.5); ABG HCO3 26.6 MMOL/L (20-26); ABG Oxygen Saturation 96.7 % (95-100); ABG PCO2 34.5 MM HG (35-48); ABG PH 7.505 (7.35-7.45); ABG PO2 86.1 MM HG (80-95); ABG TCO2 27.7 MMOL/L (23-27)
[2020-07-14 04:43] LABS: Basophils % 0.1 % (0.0-0.8); Hematocrit 26.4 VOL% (35.7-47.0); Hemoglobin 8.3 GM/DL (12.0-16.0); Immature Granulocytes % 2.8 %; Immature Granulocytes Absolute 0.47 #; Lymphocytes # 1.8 10*3/uL (1.4-4.0); Lymphocytes % 10.3 % (21.3-54.2); Mean Corpuscular HGB Conc 31.4 GM/DL (32-36); Mean Platelet Volume 10.9 FL (9.6-12.0); Monocytes % 5.4 % (1.7-12.7); NRBC # 0.04 10*3/uL; Neutrophils % 81.4 % (38.7-73.9); Platelet Count 288 T/CUMM (130-400)
[2020-07-14 04:58] LABS: Calcium 8.2 MG/DL (8.5-10.1); Osmolality,Calculated 304.7 MOS/KG (273-304); Potassium 3.6 MMOL/L (3.5-5.1)
[2020-07-14] MEDS: FAMOTIDINE 20 MG/2 ML VIAL IV SCH ×2 (05:44→17:47)
[2020-07-14] MEDS: POTASSIUM CHLORIDE 20 MEQ/15 ML UDCUP PER TUBE PRN ×2 (05:45→09:13)
[2020-07-14 06:53] LABS: Atypical Lymphocytes Few; Lymphocytes 4 % (20-55); Segmented Neutrophils 94 % (50-85); Total Cells Counted 100
[2020-07-14 06:54] LABS: Hypochromasia Slight; Platelet Estimate Normal; Polychromasia Slight
[2020-07-14] MEDS: KETOROLAC 0.5% OPH SOLN 5 ML BOTTLE RIGHT EYE SCH ×2 (09:10→20:51)
[2020-07-14] MEDS: DOCUSATE SODIUM 100 MG CAPSULE PO SCH (09:10)
[2020-07-14] MEDS: ASPIRIN CHEW 81 MG TABLET PO SCH (09:10)
[2020-07-14] MEDS: ENOXAPARIN 40 MG/0.4 ML SYRINGE SUBCUT SCH ×2 (09:10→20:39)
[2020-07-14] MEDS: DEXAMETHASONE 4 MG/1 ML VIAL IV SCH (09:10)
[2020-07-14] MEDS: CYANOCOBALAMIN 500 MCG TABLET PO SCH (09:11)
[2020-07-14] MEDS: FERROUS SULFATE 325 MG TABLET PO SCH (09:11)
[2020-07-14] MEDS: CHOLECALCIFEROL 1,000 UNIT TABLET PO SCH (09:11)
[2020-07-14] MEDS: ENALAPRIL 10 MG TABLET PO SCH (09:11)
[2020-07-14] MEDS: prednisoLONE ACETATE 1% OPH SUSP 5 ML BOTTLE RIGHT EYE SCH ×2 (09:11→20:39)
[2020-07-14] MEDS: VITAMIN E 400 UNIT CAPSULE PO SCH (09:11)
[2020-07-14] MEDS: MOXIFLOXACIN 0.5% OPH SOLN 3 ML BOTTLE RIGHT EYE SCH ×2 (09:11→20:39)
[2020-07-14] MEDS: CHLORHEXIDINE 0.12% ORAL RINSE 60 ML BOTTLE SWISH/SPIT SCH ×2 (09:11→20:39)
[2020-07-14] MEDS: ASCORBIC ACID 500 MG TABLET PO SCH ×2 (09:11→20:39)
[2020-07-14] MEDS: METOPROLOL TARTRATE 25 MG TABLET PO SCH ×2 (09:11→20:39)
[2020-07-14] MEDS: hydroCHLOROthiazide 25 MG TABLET PO SCH (09:11)
[2020-07-14] MEDS: AZITHROMYCIN 250 MG TABLET PO SCH (09:12)
[2020-07-14] MEDS: ZINC GLUCONATE 50 MG TABLET PO SCH (09:12)
[2020-07-14] MEDS: REMDESIVIR 100 MG in SODIUM CHLORIDE 0.9% 100 ML IV SCH (09:54)
[2020-07-14] MEDS: LORATADINE 10 MG TABLET PO SCH (20:39)
[2020-07-14] MEDS: TRAVOPROST 0.004% OPH SOLN 2.5 ML BOTTLE BOTH EYES SCH (20:39)
[2020-07-14] MEDS: ATORVASTATIN 80 MG TABLET PO SCH (20:39)
[2020-07-15] MEDS: INSULIN REGULAR 100 UNIT/ML SUBCUT SCH ×4 (00:54→17:50)
[2020-07-15 04:30] LABS: ABG Base Excess 3.2 MMOL/L (-2.5-2.5); ABG HCO3 26.2 MMOL/L (20-26); ABG PCO2 33.5 MM HG (35-48); ABG PH 7.511 (7.35-7.45); ABG TCO2 27.2 MMOL/L (23-27)
[2020-07-15 04:59] LABS: Basophils % 0.1 % (0.0-0.8); Hematocrit 25.7 VOL% (35.7-47.0); Hemoglobin 8.3 GM/DL (12.0-16.0); Immature Granulocytes % 4.4 %; Immature Granulocytes Absolute 0.95 #; Lymphocytes # 2.8 10*3/uL (1.4-4.0); Lymphocytes % 12.9 % (21.3-54.2); Mean Corpuscular HGB Conc 32.3 GM/DL (32-36); Mean Corpuscular Volume 86.5 FL (87-102); Mean Platelet Volume 11.3 FL (9.6-12.0); Monocytes % 5.4 % (1.7-12.7); NRBC # 0.07 10*3/uL; Neutrophils % 77.2 % (38.7-73.9); Platelet Count 304 T/CUMM (130-400); Red Blood Count 2.97 MC/CUMM (3.8-5.5); Red Cell Distribution Width 16.2 % (9.3-17.3); White Blood Count 21.7 T/CUMM (4-12)
[2020-07-15 05:25] LABS: Albumin 1.8 G/DL (3.4-5.0); Bilirubin,Total 0.6 MG/DL (0.2-1.0); Calcium 8.4 MG/DL (8.5-10.1); Osmolality,Calculated 307.6 MOS/KG (273-304); Potassium 4.1 MMOL/L (3.5-5.1); Total Protein 6.2 G/DL (6.4-8.2)
[2020-07-15 05:39] LABS: Band Neutrophils 3 % (0-10); Hypochromasia 1+; Lymphocytes 9 % (20-55); Platelet Estimate Normal; Segmented Neutrophils 82 % (50-85); Total Cells Counted 100
[2020-07-15] MEDS: FAMOTIDINE 20 MG/2 ML VIAL IV SCH ×2 (06:01→18:15)
[2020-07-15] MEDS: POTASSIUM CHLORIDE 20 MEQ/15 ML UDCUP PER TUBE PRN (06:01)
[2020-07-15] MEDS: ALBUTEROL INHALER 18 GM INH SCH ×3 (07:07→12:03)
[2020-07-15] MEDS: ENOXAPARIN 40 MG/0.4 ML SYRINGE SUBCUT SCH ×2 (08:03→21:01)
[2020-07-15] MEDS: DEXAMETHASONE 4 MG/1 ML VIAL IV SCH (08:04)
[2020-07-15] MEDS: ZINC GLUCONATE 50 MG TABLET PO SCH (08:04)
[2020-07-15] MEDS: DOCUSATE SODIUM 100 MG CAPSULE PO SCH (08:04)
[2020-07-15] MEDS: ASCORBIC ACID 500 MG TABLET PO SCH ×2 (08:04→21:01)
[2020-07-15] MEDS: ENALAPRIL 10 MG TABLET PO SCH (08:05)
[2020-07-15] MEDS: METOPROLOL TARTRATE 25 MG TABLET PO SCH ×2 (08:05→21:00)
[2020-07-15] MEDS: FERROUS SULFATE 325 MG TABLET PO SCH (08:05)
[2020-07-15] MEDS: VITAMIN E 400 UNIT CAPSULE PO SCH (08:05)
[2020-07-15] MEDS: ASPIRIN CHEW 81 MG TABLET PO SCH (08:05)
[2020-07-15] MEDS: CYANOCOBALAMIN 500 MCG TABLET PO SCH (08:05)
[2020-07-15] MEDS: CHOLECALCIFEROL 1,000 UNIT TABLET PO SCH (08:05)
[2020-07-15] MEDS: AZITHROMYCIN 250 MG TABLET PO SCH (08:05)
[2020-07-15] MEDS: hydroCHLOROthiazide 25 MG TABLET PO SCH (08:06)
[2020-07-15] MEDS: KETOROLAC 0.5% OPH SOLN 5 ML BOTTLE RIGHT EYE SCH ×2 (08:08→22:46)
[2020-07-15] MEDS: prednisoLONE ACETATE 1% OPH SUSP 5 ML BOTTLE RIGHT EYE SCH ×2 (08:08→21:02)
[2020-07-15] MEDS: MOXIFLOXACIN 0.5% OPH SOLN 3 ML BOTTLE RIGHT EYE SCH ×2 (08:08→21:02)
[2020-07-15] MEDS: CHLORHEXIDINE 0.12% ORAL RINSE 60 ML BOTTLE SWISH/SPIT SCH ×2 (08:08→21:03)
[2020-07-15] MEDS: REMDESIVIR 100 MG in SODIUM CHLORIDE 0.9% 100 ML IV SCH (09:30)
[2020-07-15] MEDS: LORATADINE 10 MG TABLET PO SCH (21:01)
[2020-07-15] MEDS: ATORVASTATIN 80 MG TABLET PO SCH (21:01)
[2020-07-15] MEDS: TRAVOPROST 0.004% OPH SOLN 2.5 ML BOTTLE BOTH EYES SCH (21:02)
[2020-07-16] MEDS: INSULIN REGULAR 100 UNIT/ML SUBCUT SCH ×4 (00:38→18:10)
[2020-07-16 03:41] LABS: ABG Base Excess 4.1 MMOL/L (-2.5-2.5); ABG HCO3 27.4 MMOL/L (20-26); ABG Oxygen Saturation 94.5 % (95-100); ABG TCO2 28.5 MMOL/L (23-27); Allen Test Positive; Pt O2 Delivery Device Ventilator
[2020-07-16 04:39] LABS: Basophils % 0.1 % (0.0-0.8); Hematocrit 23.4 VOL% (35.7-47.0); Hemoglobin 7.5 GM/DL (12.0-16.0); Immature Granulocytes % 4.5 %; Immature Granulocytes Absolute 1.12 #; Lymphocytes # 3.3 10*3/uL (1.4-4.0); Lymphocytes % 13.2 % (21.3-54.2); Mean Corpuscular HGB Conc 32.1 GM/DL (32-36); Mean Corpuscular Volume 88.3 FL (87-102); Mean Platelet Volume 11.8 FL (9.6-12.0); Neutrophils % 76.2 % (38.7-73.9); Platelet Count 354 T/CUMM (130-400); Red Blood Count 2.65 MC/CUMM (3.8-5.5); Red Cell Distribution Width 15.9 % (9.3-17.3); White Blood Count 25.1 T/CUMM (4-12)
[2020-07-16 04:58] LABS: Calcium 8.3 MG/DL (8.5-10.1); Osmolality,Calculated 312.7 MOS/KG (273-304); Potassium 4.1 MMOL/L (3.5-5.1)
[2020-07-16 04:59] LABS: Band Neutrophils 2 % (0-10); Hypochromasia 1+; Lymphocytes 7 % (20-55); Metamyelocytes 1 %; Microcytosis 1+; Nucleated Red Blood Cells 3 (0-5); Segmented Neutrophils 85 % (50-85); Total Cells Counted 100
[2020-07-16 05:00] LABS: Ovalocytes Slight; Platelet Estimate Normal
[2020-07-16] MEDS: FAMOTIDINE 20 MG/2 ML VIAL IV SCH ×2 (06:24→17:37)
[2020-07-16] MEDS: ALBUTEROL INHALER 18 GM INH SCH ×4 (07:35→20:35)
[2020-07-16] MEDS: ENOXAPARIN 40 MG/0.4 ML SYRINGE SUBCUT SCH ×2 (07:36→20:31)
[2020-07-16] MEDS: DEXAMETHASONE 4 MG/1 ML VIAL IV SCH (08:00)
[2020-07-16] MEDS: KETOROLAC 0.5% OPH SOLN 5 ML BOTTLE RIGHT EYE SCH ×2 (08:05→20:35)
[2020-07-16] MEDS: DOCUSATE SODIUM 100 MG CAPSULE PO SCH (08:06)
[2020-07-16] MEDS: ASPIRIN CHEW 81 MG TABLET PO SCH (08:06)
[2020-07-16] MEDS: hydroCHLOROthiazide 25 MG TABLET PO SCH (08:07)
[2020-07-16] MEDS: CHLORHEXIDINE 0.12% ORAL RINSE 60 ML BOTTLE SWISH/SPIT SCH ×2 (08:07→20:33)
[2020-07-16] MEDS: FERROUS SULFATE 325 MG TABLET PO SCH (08:07)
[2020-07-16] MEDS: METOPROLOL TARTRATE 25 MG TABLET PO SCH ×2 (08:07→20:32)
[2020-07-16] MEDS: prednisoLONE ACETATE 1% OPH SUSP 5 ML BOTTLE RIGHT EYE SCH ×2 (08:07→20:34)
[2020-07-16] MEDS: CHOLECALCIFEROL 1,000 UNIT TABLET PO SCH (08:08)
[2020-07-16] MEDS: ENALAPRIL 10 MG TABLET PO SCH (08:08)
[2020-07-16] MEDS: ASCORBIC ACID 500 MG TABLET PO SCH ×2 (08:08→20:31)
[2020-07-16] MEDS: CYANOCOBALAMIN 500 MCG TABLET PO SCH (08:08)
[2020-07-16] MEDS: VITAMIN E 400 UNIT CAPSULE PO SCH (08:08)
[2020-07-16] MEDS: ZINC GLUCONATE 50 MG TABLET PO SCH (08:08)
[2020-07-16] MEDS: MOXIFLOXACIN 0.5% OPH SOLN 3 ML BOTTLE RIGHT EYE SCH ×2 (08:08→20:34)
[2020-07-16] MEDS: MIDAZOLAM 100 MG in SODIUM CHLORIDE 0.9% 80 ML IV PRN (09:33)
[2020-07-16] MEDS ORDERED: INSULIN GLARGINE 100 UNIT/ML SUBCUT SCH (11:30)
[2020-07-16] MEDS ORDERED: SODIUM CHLORIDE 0.9% 1,000 ML IV PRN (11:33)
[2020-07-16] MEDS: AZITHROMYCIN INJ 500 MG in SODIUM CHLORIDE 0.9% 250 ML IV SCH (12:45)
[2020-07-16] MEDS: cefTRIAXone 1,000 MG in SODIUM CHLORIDE 0.9% 100 ML IV SCH (12:45)
[2020-07-16] MEDS: ATORVASTATIN 80 MG TABLET PO SCH (20:31)
[2020-07-16] MEDS: LORATADINE 10 MG TABLET PO SCH (20:32)
[2020-07-16] MEDS: TRAVOPROST 0.004% OPH SOLN 2.5 ML BOTTLE BOTH EYES SCH (20:33)
[2020-07-16] MEDS: INSULIN GLARGINE 100 UNIT/ML SUBCUT SCH ×2 (20:35→21:50)
[2020-07-17] MEDS: INSULIN REGULAR 100 UNIT/ML SUBCUT SCH ×4 (00:20→18:24)
[2020-07-17] MEDS: ALBUTEROL INHALER 18 GM INH SCH ×4 (00:39→18:38)
[2020-07-17 04:47] LABS: Allen Test Positive; Pt O2 Delivery Device Ventilator
[2020-07-17 04:48] LABS: ABG Base Excess 5.4 MMOL/L (-2.5-2.5); ABG HCO3 29.2 MMOL/L (20-26); ABG Oxygen Saturation 91.3 % (95-100); ABG PCO2 39.6 MM HG (35-48); ABG PH 7.478 (7.35-7.45); ABG PO2 61.3 MM HG (80-95); ABG TCO2 27.2 MMOL/L (23-27)
[2020-07-17 05:05] LABS: Basophils % 0.1 % (0.0-0.8); Eosinophils % 0.1 % (0.00-10.9); Hematocrit 24.6 VOL% (35.7-47.0); Hemoglobin 7.8 GM/DL (12.0-16.0); Immature Granulocytes % 4.4 %; Immature Granulocytes Absolute 1.23 #; Lymphocytes # 3.6 10*3/uL (1.4-4.0); Lymphocytes % 12.9 % (21.3-54.2); Mean Corpuscular HGB Conc 31.7 GM/DL (32-36); Mean Corpuscular Volume 90.8 FL (87-102); Mean Platelet Volume 12.2 FL (9.6-12.0); Monocytes % 5.5 % (1.7-12.7); NRBC # 0.27 10*3/uL; Platelet Count 382 T/CUMM (130-400); Red Blood Count 2.71 MC/CUMM (3.8-5.5); Red Cell Distribution Width 15.8 % (9.3-17.3); White Blood Count 28.1 T/CUMM (4-12)
[2020-07-17 05:26] LABS: Hypochromasia 1+; Lymphocytes 12 % (20-55); Microcytosis 1+; Nucleated Red Blood Cells 3 (0-5); Platelet Estimate Adequate; Segmented Neutrophils 83 % (50-85); Total Cells Counted 100
[2020-07-17] MEDS: FAMOTIDINE 20 MG/2 ML VIAL IV SCH ×2 (05:35→18:10)
[2020-07-17 05:52] LABS: Calcium 7.8 MG/DL (8.5-10.1); Osmolality,Calculated 310.6 MOS/KG (273-304)
[2020-07-17] MEDS ORDERED: SODIUM CHLORIDE 0.9% 250 ML IV ONE (05:54)
[2020-07-17] MEDS: fentaNYL INJ 1,250 MCG in SODIUM CHLORIDE 0.9% 225 ML IV PRN ×3 (06:14→22:21)
[2020-07-17] MEDS: PHENYLEPHRINE DRIP 40 MG/250 ML PREMIX IV PRN ×2 (06:43→16:05)
[2020-07-17] MEDS: ENOXAPARIN 40 MG/0.4 ML SYRINGE SUBCUT SCH ×2 (08:10→20:18)
[2020-07-17] MEDS: DEXAMETHASONE 4 MG/1 ML VIAL IV SCH (08:20)
[2020-07-17] MEDS: ASCORBIC ACID 500 MG TABLET PO SCH ×2 (08:22→20:19)
[2020-07-17] MEDS: VITAMIN E 400 UNIT CAPSULE PO SCH (08:22)
[2020-07-17] MEDS: CYANOCOBALAMIN 500 MCG TABLET PO SCH (08:22)
[2020-07-17] MEDS: CHOLECALCIFEROL 1,000 UNIT TABLET PO SCH (08:22)
[2020-07-17] MEDS: ASPIRIN CHEW 81 MG TABLET PO SCH (08:22)
[2020-07-17] MEDS: ZINC GLUCONATE 50 MG TABLET PO SCH (08:23)
[2020-07-17] MEDS: DOCUSATE SODIUM 100 MG CAPSULE PO SCH (08:25)
[2020-07-17] MEDS: FERROUS SULFATE 325 MG TABLET PO SCH (08:25)
[2020-07-17] MEDS: KETOROLAC 0.5% OPH SOLN 5 ML BOTTLE RIGHT EYE SCH ×2 (08:25→20:15)
[2020-07-17] MEDS: INSULIN GLARGINE 100 UNIT/ML SUBCUT SCH ×2 (08:25→20:18)
[2020-07-17] MEDS: prednisoLONE ACETATE 1% OPH SUSP 5 ML BOTTLE RIGHT EYE SCH ×2 (08:26→20:19)
[2020-07-17] MEDS: MOXIFLOXACIN 0.5% OPH SOLN 3 ML BOTTLE RIGHT EYE SCH ×2 (08:26→20:16)
[2020-07-17] MEDS: CHLORHEXIDINE 0.12% ORAL RINSE 60 ML BOTTLE SWISH/SPIT SCH ×2 (08:26→20:19)
[2020-07-17] MEDS: MIDAZOLAM 100 MG in SODIUM CHLORIDE 0.9% 80 ML IV PRN (11:08)
[2020-07-17] MEDS: FUROSEMIDE 20 MG/2 ML VIAL IV SCH (11:20)
[2020-07-17] MEDS: cefTRIAXone 1,000 MG in SODIUM CHLORIDE 0.9% 100 ML IV SCH (11:24)
[2020-07-17] MEDS: AZITHROMYCIN INJ 500 MG in SODIUM CHLORIDE 0.9% 250 ML IV SCH (11:24)
[2020-07-17] MEDS: TRAVOPROST 0.004% OPH SOLN 2.5 ML BOTTLE BOTH EYES SCH (20:15)
[2020-07-17] MEDS: LORATADINE 10 MG TABLET PO SCH (20:18)
[2020-07-17] MEDS: ATORVASTATIN 80 MG TABLET PO SCH (20:18)
[2020-07-18] MEDS: INSULIN REGULAR 100 UNIT/ML SUBCUT SCH ×4 (00:05→18:17)
[2020-07-18] MEDS: ALBUTEROL INHALER 18 GM INH SCH ×4 (00:47→20:00)
[2020-07-18] MEDS: PHENYLEPHRINE DRIP 40 MG/250 ML PREMIX IV PRN ×3 (03:41→20:31)
[2020-07-18 04:51] LABS: ABG Base Excess 4.8 MMOL/L (-2.5-2.5); ABG HCO3 28.7 MMOL/L (20-26); ABG Oxygen Saturation 94.1 % (95-100); ABG PCO2 46.7 MM HG (35-48); ABG PH 7.414 (7.35-7.45); ABG PO2 73.3 MM HG (80-95); ABG TCO2 28.2 MMOL/L (23-27); Allen Test Positive; Pt O2 Delivery Device Ventilator
[2020-07-18 05:08] LABS: Basophils # 0.1 10*3/uL (0.0-0.2); Basophils % 0.2 % (0.0-0.8); Eosinophils % 0.1 % (0.00-10.9); Hematocrit 21.9 VOL% (35.7-47.0); Immature Granulocytes % 4.7 %; Immature Granulocytes Absolute 1.46 #; Lymphocytes # 4.3 10*3/uL (1.4-4.0); Lymphocytes % 13.8 % (21.3-54.2); Mean Corpuscular Volume 89.8 FL (87-102); Mean Platelet Volume 12.3 FL (9.6-12.0); NRBC # 0.51 10*3/uL; Neutrophils % 75.2 % (38.7-73.9); Platelet Count 402 T/CUMM (130-400); Red Blood Count 2.44 MC/CUMM (3.8-5.5); Red Cell Distribution Width 16.1 % (9.3-17.3); White Blood Count 31.2 T/CUMM (4-12)
[2020-07-18 05:26] LABS: Calcium 8.3 MG/DL (8.5-10.1); Osmolality,Calculated 309.1 MOS/KG (273-304); Potassium 4.2 MMOL/L (3.5-5.1)
[2020-07-18 05:28] LABS: Band Neutrophils 2 % (0-10); Eosinophils 1 % (0-10); Hypochromasia 1+; Lymphocytes 12 % (20-55); Metamyelocytes 3 %; Microcytosis 1+; Nucleated Red Blood Cells 4 (0-5); Segmented Neutrophils 72 % (50-85); Total Cells Counted 100
[2020-07-18 05:29] LABS: Polychromasia Slight
[2020-07-18 05:35] LABS: Albumin 1.7 G/DL (3.4-5.0); Bilirubin,Total 0.4 MG/DL (0.2-1.0); Calcium 8.2 MG/DL (8.5-10.1); Ferritin 3257.7 ng/ml (8-252); Osmolality,Calculated 307.3 MOS/KG (273-304); Potassium 4.2 MMOL/L (3.5-5.1); Total Protein 6.2 G/DL (6.4-8.2)
[2020-07-18] MEDS: FAMOTIDINE 20 MG/2 ML VIAL IV SCH ×2 (06:05→18:48)
[2020-07-18] MEDS: MIDAZOLAM 100 MG in SODIUM CHLORIDE 0.9% 80 ML IV PRN (06:14)
[2020-07-18] MEDS: fentaNYL INJ 1,250 MCG in SODIUM CHLORIDE 0.9% 225 ML IV PRN ×2 (07:45→18:00)
[2020-07-18] MEDS: ENOXAPARIN 40 MG/0.4 ML SYRINGE SUBCUT SCH (08:32)
[2020-07-18] MEDS: INSULIN GLARGINE 100 UNIT/ML SUBCUT SCH ×2 (08:32→20:47)
[2020-07-18] MEDS: DEXAMETHASONE 4 MG/1 ML VIAL IV SCH (08:33)
[2020-07-18] MEDS: VITAMIN E 400 UNIT CAPSULE PO SCH (08:34)
[2020-07-18] MEDS: ASPIRIN CHEW 81 MG TABLET PO SCH (08:34)
[2020-07-18] MEDS: DOCUSATE SODIUM 100 MG CAPSULE PO SCH (08:34)
[2020-07-18] MEDS: CHOLECALCIFEROL 1,000 UNIT TABLET PO SCH (08:34)
[2020-07-18] MEDS: FERROUS SULFATE 325 MG TABLET PO SCH (08:34)
[2020-07-18] MEDS: CYANOCOBALAMIN 500 MCG TABLET PO SCH (08:34)
[2020-07-18] MEDS: ZINC GLUCONATE 50 MG TABLET PO SCH (08:34)
[2020-07-18] MEDS: ASCORBIC ACID 500 MG TABLET PO SCH ×2 (08:34→20:05)
[2020-07-18] MEDS: prednisoLONE ACETATE 1% OPH SUSP 5 ML BOTTLE RIGHT EYE SCH ×2 (08:35→20:05)
[2020-07-18] MEDS: KETOROLAC 0.5% OPH SOLN 5 ML BOTTLE RIGHT EYE SCH ×2 (08:35→20:05)
[2020-07-18] MEDS: CHLORHEXIDINE 0.12% ORAL RINSE 60 ML BOTTLE SWISH/SPIT SCH ×2 (08:35→20:05)
[2020-07-18] MEDS: MOXIFLOXACIN 0.5% OPH SOLN 3 ML BOTTLE RIGHT EYE SCH ×2 (08:35→20:05)
[2020-07-18] MEDS ORDERED: VANCOMYCIN INJ 2,000 MG in SODIUM CHLORIDE 0.9% 500 ML IV ONE (11:00)
[2020-07-18] MEDS: CEFEPIME 1,000 MG in SODIUM CHLORIDE 0.9% 100 ML IV SCH ×2 (12:54→20:03)
[2020-07-18] MEDS: FUROSEMIDE 20 MG/2 ML VIAL IV SCH (13:27)
[2020-07-18] MEDS: methylPREDNISolone SOD SUC 40 MG/1 ML VIAL IV SCH ×2 (13:38→18:48)
[2020-07-18] MEDS: AZITHROMYCIN INJ 500 MG in SODIUM CHLORIDE 0.9% 250 ML IV SCH (14:45)
[2020-07-18] MEDS: LORATADINE 10 MG TABLET PO SCH (20:05)
[2020-07-18] MEDS: TRAVOPROST 0.004% OPH SOLN 2.5 ML BOTTLE BOTH EYES SCH (20:05)
[2020-07-18] MEDS: VANCOMYCIN INJ 1,250 MG in SODIUM CHLORIDE 0.9% 250 ML IV SCH (23:50)
[2020-07-19] MEDS: INSULIN REGULAR 100 UNIT/ML SUBCUT SCH ×5 (00:09→23:55)
[2020-07-19] MEDS: ALBUTEROL INHALER 18 GM INH SCH ×4 (00:11→20:02)
[2020-07-19] MEDS: CEFEPIME 1,000 MG in SODIUM CHLORIDE 0.9% 100 ML IV SCH ×4 (02:25→20:01)
[2020-07-19] MEDS: methylPREDNISolone SOD SUC 40 MG/1 ML VIAL IV SCH ×3 (02:25→18:11)
[2020-07-19 04:22] LABS: ABG Base Excess 1.5 MMOL/L (-2.5-2.5); ABG HCO3 26.5 MMOL/L (20-26); ABG Oxygen Saturation 96.6 % (95-100); ABG PCO2 43.9 MM HG (35-48); ABG PH 7.399 (7.35-7.45); ABG PO2 94.2 MM HG (80-95); ABG TCO2 27.9 MMOL/L (23-27)
[2020-07-19 04:31] LABS: Basophils % 0.1 % (0.0-0.8); Hematocrit 26.3 VOL% (35.7-47.0); Hemoglobin 8.1 GM/DL (12.0-16.0); Immature Granulocytes % 3.8 %; Immature Granulocytes Absolute 0.82 #; Lymphocytes # 1.8 10*3/uL (1.4-4.0); Lymphocytes % 8.2 % (21.3-54.2); Mean Corpuscular HGB Conc 30.8 GM/DL (32-36); Mean Corpuscular Volume 92.9 FL (87-102); Mean Platelet Volume 12.7 FL (9.6-12.0); Monocytes % 3.4 % (1.7-12.7); NRBC # 0.12 10*3/uL; Neutrophils % 84.5 % (38.7-73.9); Platelet Count 375 T/CUMM (130-400); Red Blood Count 2.83 MC/CUMM (3.8-5.5); Red Cell Distribution Width 16.1 % (9.3-17.3); White Blood Count 21.5 T/CUMM (4-12)
[2020-07-19 04:53] LABS: Hypochromasia 1+; Lymphocytes 4 % (20-55); Microcytosis 1+; Ovalocytes Slight; Platelet Estimate Adequate; Segmented Neutrophils 92 % (50-85); Total Cells Counted 100
[2020-07-19 05:06] LABS: Albumin 1.6 G/DL (3.4-5.0); Bilirubin,Total 0.4 MG/DL (0.2-1.0); Calcium 8.1 MG/DL (8.5-10.1); Osmolality,Calculated 311.7 MOS/KG (273-304); Potassium 4.4 MMOL/L (3.5-5.1); Total Protein 6.5 G/DL (6.4-8.2)
[2020-07-19] MEDS: FAMOTIDINE 20 MG/2 ML VIAL IV SCH ×2 (05:57→18:11)
[2020-07-19] MEDS: ASPIRIN CHEW 81 MG TABLET PO SCH (08:04)
[2020-07-19] MEDS: ZINC GLUCONATE 50 MG TABLET PO SCH (08:04)
[2020-07-19] MEDS: CHOLECALCIFEROL 1,000 UNIT TABLET PO SCH (08:04)
[2020-07-19] MEDS: ASCORBIC ACID 500 MG TABLET PO SCH ×2 (08:04→20:02)
[2020-07-19] MEDS: INSULIN GLARGINE 100 UNIT/ML SUBCUT SCH ×2 (08:04→20:10)
[2020-07-19] MEDS: VITAMIN E 400 UNIT CAPSULE PO SCH (08:04)
[2020-07-19] MEDS: CYANOCOBALAMIN 500 MCG TABLET PO SCH (08:04)
[2020-07-19] MEDS: DOCUSATE SODIUM 100 MG CAPSULE PO SCH (08:04)
[2020-07-19] MEDS: FERROUS SULFATE 325 MG TABLET PO SCH (08:04)
[2020-07-19] MEDS: MOXIFLOXACIN 0.5% OPH SOLN 3 ML BOTTLE RIGHT EYE SCH ×2 (08:05→20:03)
[2020-07-19] MEDS: KETOROLAC 0.5% OPH SOLN 5 ML BOTTLE RIGHT EYE SCH ×2 (08:05→20:02)
[2020-07-19] MEDS: CHLORHEXIDINE 0.12% ORAL RINSE 60 ML BOTTLE SWISH/SPIT SCH ×2 (08:05→20:03)
[2020-07-19] MEDS: prednisoLONE ACETATE 1% OPH SUSP 5 ML BOTTLE RIGHT EYE SCH ×2 (08:05→20:03)
[2020-07-19] MEDS: fentaNYL INJ 1,250 MCG in SODIUM CHLORIDE 0.9% 225 ML IV PRN ×2 (09:29→17:45)
[2020-07-19] MEDS: VANCOMYCIN INJ 1,250 MG in SODIUM CHLORIDE 0.9% 250 ML IV SCH ×2 (10:25→23:45)
[2020-07-19] MEDS ORDERED: FUROSEMIDE 40 MG/4 ML VIAL IV ONE (10:50)
[2020-07-19] MEDS: MIDAZOLAM 100 MG in SODIUM CHLORIDE 0.9% 80 ML IV PRN (12:25)
[2020-07-19] MEDS: AZITHROMYCIN INJ 500 MG in SODIUM CHLORIDE 0.9% 250 ML IV SCH (12:52)
[2020-07-19] MEDS: LORATADINE 10 MG TABLET PO SCH (20:03)
[2020-07-19] MEDS: TRAVOPROST 0.004% OPH SOLN 2.5 ML BOTTLE BOTH EYES SCH (20:03)
[2020-07-20] MEDS: ALBUTEROL INHALER 18 GM INH SCH ×4 (00:30→18:19)
[2020-07-20] MEDS: methylPREDNISolone SOD SUC 40 MG/1 ML VIAL IV SCH ×3 (02:03→20:11)
[2020-07-20] MEDS: CEFEPIME 1,000 MG in SODIUM CHLORIDE 0.9% 100 ML IV SCH ×4 (02:05→20:10)
[2020-07-20 04:00] LABS: ABG Base Excess 0.8 MMOL/L (-2.5-2.5); ABG HCO3 25.1 MMOL/L (20-26); ABG Oxygen Saturation 92.1 % (95-100); ABG PCO2 43.9 MM HG (35-48); ABG PH 7.382 (7.35-7.45); ABG PO2 65.4 MM HG (80-95); ABG TCO2 24.5 MMOL/L (23-27)
[2020-07-20 04:01] LABS: Allen Test Positive; Pt O2 Delivery Device Ventilator
[2020-07-20 04:31] LABS: Basophils % 0.1 % (0.0-0.8); Hemoglobin 7.5 GM/DL (12.0-16.0); Immature Granulocytes Absolute 0.35 #; Lymphocytes # 1.2 10*3/uL (1.4-4.0); Lymphocytes % 6.9 % (21.3-54.2); Mean Corpuscular Volume 94.7 FL (87-102); Mean Platelet Volume 12.7 FL (9.6-12.0); Monocytes % 4.6 % (1.7-12.7); NRBC # 0.08 10*3/uL; Neutrophils % 86.4 % (38.7-73.9); Platelet Count 334 T/CUMM (130-400); Red Blood Count 2.64 MC/CUMM (3.8-5.5); Red Cell Distribution Width 15.8 % (9.3-17.3); White Blood Count 17.6 T/CUMM (4-12)
[2020-07-20 04:45] LABS: PT Patient Result 11.3 SECS (10.5-12.0); Partial Thromboplastin Time 25.9 SECS (23.9-33.8)
[2020-07-20 05:01] LABS: Albumin 1.5 G/DL (3.4-5.0); Bilirubin,Total 0.4 MG/DL (0.2-1.0); Calcium 8.3 MG/DL (8.5-10.1); Osmolality,Calculated 314.7 MOS/KG (273-304); Potassium 4.4 MMOL/L (3.5-5.1); Total Protein 6.3 G/DL (6.4-8.2)
[2020-07-20 05:04] LABS: Ferritin 2323.8 ng/ml (8-252)
[2020-07-20] MEDS: MIDAZOLAM 100 MG in SODIUM CHLORIDE 0.9% 80 ML IV PRN ×2 (05:31→19:32)
[2020-07-20] MEDS: INSULIN REGULAR 100 UNIT/ML SUBCUT SCH ×3 (05:47→17:45)
[2020-07-20] MEDS: FAMOTIDINE 20 MG/2 ML VIAL IV SCH ×2 (05:47→17:50)
[2020-07-20] MEDS: fentaNYL INJ 1,250 MCG in SODIUM CHLORIDE 0.9% 225 ML IV PRN ×3 (06:26→20:32)
[2020-07-20 07:30] LABS: Band Neutrophils 4 % (0-10); Lymphocytes 5 % (20-55); Segmented Neutrophils 88 % (50-85); Total Cells Counted 100
[2020-07-20 07:31] LABS: Acanthocytes Few; Hypochromasia 1+; Ovalocytes Few; Platelet Estimate Increased
[2020-07-20 07:32] LABS: Anisocytosis 1+; Poikilocytosis 1+; Polychromasia Slight
[2020-07-20] MEDS: ENOXAPARIN 40 MG/0.4 ML SYRINGE SUBCUT SCH (08:20)
[2020-07-20] MEDS: KETOROLAC 0.5% OPH SOLN 5 ML BOTTLE RIGHT EYE SCH ×2 (08:21→20:14)
[2020-07-20] MEDS: FERROUS SULFATE 325 MG TABLET PO SCH (08:21)
[2020-07-20] MEDS: DOCUSATE SODIUM 100 MG CAPSULE PO SCH (08:21)
[2020-07-20] MEDS: ASPIRIN CHEW 81 MG TABLET PO SCH (08:21)
[2020-07-20] MEDS: CYANOCOBALAMIN 500 MCG TABLET PO SCH (08:22)
[2020-07-20] MEDS: INSULIN GLARGINE 100 UNIT/ML SUBCUT SCH (08:22)
[2020-07-20] MEDS: CHLORHEXIDINE 0.12% ORAL RINSE 60 ML BOTTLE SWISH/SPIT SCH ×2 (08:22→20:14)
[2020-07-20] MEDS: MOXIFLOXACIN 0.5% OPH SOLN 3 ML BOTTLE RIGHT EYE SCH ×2 (08:22→20:14)
[2020-07-20] MEDS: prednisoLONE ACETATE 1% OPH SUSP 5 ML BOTTLE RIGHT EYE SCH ×2 (08:22→20:14)
[2020-07-20] MEDS: ASCORBIC ACID 500 MG TABLET PO SCH ×2 (08:22→20:11)
[2020-07-20] MEDS: CHOLECALCIFEROL 1,000 UNIT TABLET PO SCH (08:23)
[2020-07-20] MEDS: ZINC GLUCONATE 50 MG TABLET PO SCH (08:23)
[2020-07-20] MEDS: VITAMIN E 400 UNIT CAPSULE PO SCH (08:23)
[2020-07-20] MEDS ORDERED: SODIUM CHLORIDE 0.9% 1,000 ML IV PRN (08:52)
[2020-07-20] MEDS ORDERED: INSULIN GLARGINE 100 UNIT/ML SUBCUT SCH ×2 (09:00→21:00)
[2020-07-20] MEDS ORDERED: FUROSEMIDE 40 MG/4 ML VIAL IV ONE ×2 (09:49→15:20)
[2020-07-20] MEDS: AZITHROMYCIN INJ 500 MG in SODIUM CHLORIDE 0.9% 250 ML IV SCH (10:45)
[2020-07-20] MEDS: LORATADINE 10 MG TABLET PO SCH (20:12)
[2020-07-20] MEDS: TRAVOPROST 0.004% OPH SOLN 2.5 ML BOTTLE BOTH EYES SCH (20:14)
[2020-07-21] MEDS: INSULIN REGULAR 100 UNIT/ML SUBCUT SCH ×4 (00:35→18:23)
[2020-07-21] MEDS: ALBUTEROL INHALER 18 GM INH SCH ×4 (00:38→18:50)
[2020-07-21] MEDS: CEFEPIME 1,000 MG in SODIUM CHLORIDE 0.9% 100 ML IV SCH ×4 (02:12→20:25)
[2020-07-21] MEDS: fentaNYL INJ 1,250 MCG in SODIUM CHLORIDE 0.9% 225 ML IV PRN ×3 (04:10→17:20)
[2020-07-21 04:30] LABS: ABG Base Excess 2.6 MMOL/L (-2.5-2.5); ABG HCO3 26.6 MMOL/L (20-26); ABG Oxygen Saturation 91.6 % (95-100); ABG PCO2 47.6 MM HG (35-48); ABG PH 7.381 (7.35-7.45); ABG PO2 64.5 MM HG (80-95); ABG TCO2 26.1 MMOL/L (23-27); Allen Test Positive; Pt O2 Delivery Device Ventilator
[2020-07-21 05:13] LABS: Basophils % 0.1 % (0.0-0.8); Hemoglobin 8.9 GM/DL (12.0-16.0); Immature Granulocytes % 1.1 %; Immature Granulocytes Absolute 0.18 #; Lymphocytes # 0.8 10*3/uL (1.4-4.0); Mean Corpuscular HGB Conc 31.8 GM/DL (32-36); Mean Platelet Volume 12.6 FL (9.6-12.0); Monocytes % 4.9 % (1.7-12.7); NRBC # 0.09 10*3/uL; Neutrophils % 88.9 % (38.7-73.9); Platelet Count 316 T/CUMM (130-400); Red Blood Count 3.11 MC/CUMM (3.8-5.5); Red Cell Distribution Width 15.3 % (9.3-17.3); White Blood Count 16.4 T/CUMM (4-12)
[2020-07-21 05:36] LABS: Albumin 1.8 G/DL (3.4-5.0); Bilirubin,Total 0.6 MG/DL (0.2-1.0); Calcium 8.3 MG/DL (8.5-10.1); Osmolality,Calculated 302.1 MOS/KG (273-304); Potassium 4.2 MMOL/L (3.5-5.1); Total Protein 6.7 G/DL (6.4-8.2)
[2020-07-21] MEDS: FAMOTIDINE 20 MG/2 ML VIAL IV SCH ×2 (06:17→18:10)
[2020-07-21 07:33] LABS: Lymphocytes 1 % (20-55); Platelet Estimate Normal; Segmented Neutrophils 97 % (50-85); Total Cells Counted 100
[2020-07-21] MEDS: methylPREDNISolone SOD SUC 40 MG/1 ML VIAL IV SCH ×2 (08:30→15:30)
[2020-07-21] MEDS: ENOXAPARIN 40 MG/0.4 ML SYRINGE SUBCUT SCH (08:41)
[2020-07-21] MEDS: KETOROLAC 0.5% OPH SOLN 5 ML BOTTLE RIGHT EYE SCH ×2 (08:42→21:04)
[2020-07-21] MEDS: CYANOCOBALAMIN 500 MCG TABLET PO SCH (08:42)
[2020-07-21] MEDS: MOXIFLOXACIN 0.5% OPH SOLN 3 ML BOTTLE RIGHT EYE SCH ×2 (08:42→21:06)
[2020-07-21] MEDS: CHLORHEXIDINE 0.12% ORAL RINSE 60 ML BOTTLE SWISH/SPIT SCH ×2 (08:42→21:06)
[2020-07-21] MEDS: prednisoLONE ACETATE 1% OPH SUSP 5 ML BOTTLE RIGHT EYE SCH ×2 (08:42→21:06)
[2020-07-21] MEDS: FERROUS SULFATE 325 MG TABLET PO SCH (08:42)
[2020-07-21] MEDS: ASPIRIN CHEW 81 MG TABLET PO SCH (08:42)
[2020-07-21] MEDS: DOCUSATE SODIUM 100 MG CAPSULE PO SCH (08:42)
[2020-07-21] MEDS: INSULIN GLARGINE 100 UNIT/ML SUBCUT SCH ×2 (08:42→21:06)
[2020-07-21] MEDS: CHOLECALCIFEROL 1,000 UNIT TABLET PO SCH (08:43)
[2020-07-21] MEDS: ZINC GLUCONATE 50 MG TABLET PO SCH (08:43)
[2020-07-21] MEDS: ASCORBIC ACID 500 MG TABLET PO SCH ×2 (08:43→21:07)
[2020-07-21] MEDS: VITAMIN E 400 UNIT CAPSULE PO SCH (08:43)
[2020-07-21] MEDS ORDERED: FUROSEMIDE 40 MG/4 ML VIAL IV SCH (09:00)
[2020-07-21] MEDS: ROCURONIUM 500 MG in SODIUM CHLORIDE 0.9% 500 ML IV PRN ×2 (09:48→23:08)
[2020-07-21] MEDS: MIDAZOLAM 100 MG in SODIUM CHLORIDE 0.9% 80 ML IV PRN (11:09)
[2020-07-21] MEDS: FUROSEMIDE 40 MG/4 ML VIAL IV SCH (15:20)
[2020-07-21] MEDS: LORATADINE 10 MG TABLET PO SCH (21:04)
[2020-07-21] MEDS: ATORVASTATIN 80 MG TABLET PO SCH (21:06)
[2020-07-21] MEDS: METOPROLOL TARTRATE 25 MG TABLET PO SCH (21:06)
[2020-07-21] MEDS: TRAVOPROST 0.004% OPH SOLN 2.5 ML BOTTLE BOTH EYES SCH (21:06)
[2020-07-22] MEDS: methylPREDNISolone SOD SUC 40 MG/1 ML VIAL IV SCH ×3 (00:23→15:53)
[2020-07-22] MEDS: INSULIN REGULAR 100 UNIT/ML SUBCUT SCH ×4 (00:23→18:10)
[2020-07-22] MEDS: MIDAZOLAM 100 MG in SODIUM CHLORIDE 0.9% 80 ML IV PRN ×2 (01:11→15:20)
[2020-07-22] MEDS: ALBUTEROL INHALER 18 GM INH SCH ×4 (01:12→18:11)
[2020-07-22] MEDS: fentaNYL INJ 1,250 MCG in SODIUM CHLORIDE 0.9% 225 ML IV PRN ×4 (02:00→20:00)
[2020-07-22] MEDS: CEFEPIME 1,000 MG in SODIUM CHLORIDE 0.9% 100 ML IV SCH ×4 (02:25→21:30)
[2020-07-22 04:48] LABS: Basophils % 0.1 % (0.0-0.8); Hematocrit 25.9 VOL% (35.7-47.0); Hemoglobin 8.3 GM/DL (12.0-16.0); Immature Granulocytes % 0.8 %; Immature Granulocytes Absolute 0.12 #; Lymphocytes # 0.8 10*3/uL (1.4-4.0); Lymphocytes % 5.6 % (21.3-54.2); Mean Corpuscular Volume 90.6 FL (87-102); Mean Platelet Volume 12.5 FL (9.6-12.0); Monocytes % 3.5 % (1.7-12.7); NRBC # 0.04 10*3/uL; Platelet Count 275 T/CUMM (130-400); Red Blood Count 2.86 MC/CUMM (3.8-5.5); Red Cell Distribution Width 15.1 % (9.3-17.3); White Blood Count 14.2 T/CUMM (4-12)
[2020-07-22 04:50] LABS: Allen Test Positive; Pt O2 Delivery Device Ventilator
[2020-07-22 05:14] LABS: Calcium 8.1 MG/DL (8.5-10.1); Ferritin 1554.6 ng/ml (8-252); Osmolality,Calculated 307.8 MOS/KG (273-304); Potassium 4.3 MMOL/L (3.5-5.1)
[2020-07-22 05:23] LABS: Band Neutrophils 1 % (0-10); Hypochromasia 1+; Lymphocytes 3 % (20-55); Microcytosis 1+; Platelet Estimate Normal; Segmented Neutrophils 92 % (50-85); Total Cells Counted 100
[2020-07-22 05:35] LABS: ABG Base Excess 3.4 MMOL/L (-2.5-2.5); ABG HCO3 27.4 MMOL/L (20-26); ABG Oxygen Saturation 96.2 % (95-100); ABG PCO2 47.1 MM HG (35-48); ABG PH 7.394 (7.35-7.45); ABG PO2 81.6 MM HG (80-95); ABG TCO2 26.6 MMOL/L (23-27)
[2020-07-22] MEDS: FAMOTIDINE 20 MG/2 ML VIAL IV SCH ×2 (06:18→17:48)
[2020-07-22] MEDS: FUROSEMIDE 40 MG/4 ML VIAL IV SCH ×2 (07:51→15:56)
[2020-07-22] MEDS: ENOXAPARIN 40 MG/0.4 ML SYRINGE SUBCUT SCH (07:52)
[2020-07-22] MEDS: DOCUSATE SODIUM 100 MG CAPSULE PO SCH (08:02)
[2020-07-22] MEDS: KETOROLAC 0.5% OPH SOLN 5 ML BOTTLE RIGHT EYE SCH ×2 (08:02→21:30)
[2020-07-22] MEDS: ASPIRIN CHEW 81 MG TABLET PO SCH (08:02)
[2020-07-22] MEDS: FERROUS SULFATE 325 MG TABLET PO SCH (08:02)
[2020-07-22] MEDS: METOPROLOL TARTRATE 25 MG TABLET PO SCH ×2 (08:02→21:30)
[2020-07-22] MEDS: INSULIN GLARGINE 100 UNIT/ML SUBCUT SCH ×2 (08:02→21:30)
[2020-07-22] MEDS: ASCORBIC ACID 500 MG TABLET PO SCH ×2 (08:03→21:31)
[2020-07-22] MEDS: CHLORHEXIDINE 0.12% ORAL RINSE 60 ML BOTTLE SWISH/SPIT SCH ×2 (08:03→21:30)
[2020-07-22] MEDS: VITAMIN E 400 UNIT CAPSULE PO SCH (08:03)
[2020-07-22] MEDS: prednisoLONE ACETATE 1% OPH SUSP 5 ML BOTTLE RIGHT EYE SCH ×2 (08:03→21:31)
[2020-07-22] MEDS: ZINC GLUCONATE 50 MG TABLET PO SCH (08:03)
[2020-07-22] MEDS: MOXIFLOXACIN 0.5% OPH SOLN 3 ML BOTTLE RIGHT EYE SCH ×2 (08:03→21:31)
[2020-07-22] MEDS: CHOLECALCIFEROL 1,000 UNIT TABLET PO SCH (08:03)
[2020-07-22] MEDS: CYANOCOBALAMIN 500 MCG TABLET PO SCH (08:03)
[2020-07-22] MEDS: ROCURONIUM 500 MG in SODIUM CHLORIDE 0.9% 500 ML IV PRN (16:43)
[2020-07-22] MEDS: ATORVASTATIN 80 MG TABLET PO SCH (21:30)
[2020-07-22] MEDS: LORATADINE 10 MG TABLET PO SCH (21:30)
[2020-07-22] MEDS: TRAVOPROST 0.004% OPH SOLN 2.5 ML BOTTLE BOTH EYES SCH (21:31)
[2020-07-23] MEDS ORDERED: fentaNYL INJ 2,500 MCG in SODIUM CHLORIDE 0.9% 500 ML IV PRN (00:30)
[2020-07-23] MEDS: fentaNYL INJ 2,500 MCG in SODIUM CHLORIDE 0.9% 450 ML IV PRN ×2 (00:56→17:44)
[2020-07-23] MEDS: methylPREDNISolone SOD SUC 40 MG/1 ML VIAL IV SCH ×3 (01:03→16:10)
[2020-07-23] MEDS: CEFEPIME 1,000 MG in SODIUM CHLORIDE 0.9% 100 ML IV SCH ×4 (03:33→20:03)
[2020-07-23 04:30] LABS: ABG Base Excess 7.5 MMOL/L (-2.5-2.5); ABG HCO3 31.4 MMOL/L (20-26); ABG Oxygen Saturation 95.3 % (95-100); ABG PCO2 41.7 MM HG (35-48); ABG PH 7.495 (7.35-7.45); ABG PO2 74.9 MM HG (80-95); ABG TCO2 32.7 MMOL/L (23-27); Allen Test Positive; Pt O2 Delivery Device Ventilator
[2020-07-23 05:11] LABS: Basophils % 0.1 % (0.0-0.8); Eosinophils % 0.1 % (0.00-10.9); Hematocrit 28.3 VOL% (35.7-47.0); Hemoglobin 9.2 GM/DL (12.0-16.0); Immature Granulocytes Absolute 0.17 #; Lymphocytes # 1.3 10*3/uL (1.4-4.0); Lymphocytes % 7.7 % (21.3-54.2); Mean Corpuscular HGB Conc 32.5 GM/DL (32-36); Mean Corpuscular Volume 88.4 FL (87-102); Mean Platelet Volume 12.3 FL (9.6-12.0); Monocytes % 3.9 % (1.7-12.7); NRBC # 0.04 10*3/uL; Neutrophils % 87.2 % (38.7-73.9); Platelet Count 299 T/CUMM (130-400); Red Cell Distribution Width 14.8 % (9.3-17.3); White Blood Count 16.3 T/CUMM (4-12)
[2020-07-23 05:31] LABS: Hypochromasia 1+; Lymphocytes 3 % (20-55); Microcytosis 1+; Platelet Estimate Adequate; Segmented Neutrophils 92 % (50-85); Total Cells Counted 100
[2020-07-23 05:40] LABS: Calcium 8.3 MG/DL (8.5-10.1); Ferritin 1414.2 ng/ml (8-252); Osmolality,Calculated 298.8 MOS/KG (273-304); Potassium 3.8 MMOL/L (3.5-5.1)
[2020-07-23] MEDS: INSULIN REGULAR 100 UNIT/ML SUBCUT SCH ×4 (06:15→18:15)
[2020-07-23] MEDS: MIDAZOLAM 100 MG in SODIUM CHLORIDE 0.9% 80 ML IV PRN (06:16)
[2020-07-23] MEDS: POTASSIUM CHLORIDE 20 MEQ/15 ML UDCUP PER TUBE PRN ×2 (06:17→08:31)
[2020-07-23] MEDS: FAMOTIDINE 20 MG/2 ML VIAL IV SCH ×2 (06:18→18:39)
[2020-07-23] MEDS: ALBUTEROL INHALER 18 GM INH SCH ×4 (07:33→20:30)
[2020-07-23] MEDS: FUROSEMIDE 40 MG/4 ML VIAL IV SCH ×2 (08:31→16:10)
[2020-07-23] MEDS: ENOXAPARIN 40 MG/0.4 ML SYRINGE SUBCUT SCH (08:31)
[2020-07-23] MEDS: ASPIRIN CHEW 81 MG TABLET PO SCH (08:32)
[2020-07-23] MEDS: DOCUSATE SODIUM 100 MG CAPSULE PO SCH (08:32)
[2020-07-23] MEDS: KETOROLAC 0.5% OPH SOLN 5 ML BOTTLE RIGHT EYE SCH ×2 (08:32→20:16)
[2020-07-23] MEDS: INSULIN GLARGINE 100 UNIT/ML SUBCUT SCH ×2 (08:32→20:14)
[2020-07-23] MEDS: METOPROLOL TARTRATE 25 MG TABLET PO SCH ×2 (08:32→20:16)
[2020-07-23] MEDS: CHLORHEXIDINE 0.12% ORAL RINSE 60 ML BOTTLE SWISH/SPIT SCH ×2 (08:32→20:16)
[2020-07-23] MEDS: FERROUS SULFATE 325 MG TABLET PO SCH (08:32)
[2020-07-23] MEDS: prednisoLONE ACETATE 1% OPH SUSP 5 ML BOTTLE RIGHT EYE SCH ×2 (08:32→20:16)
[2020-07-23] MEDS: ZINC GLUCONATE 50 MG TABLET PO SCH (08:33)
[2020-07-23] MEDS: MOXIFLOXACIN 0.5% OPH SOLN 3 ML BOTTLE RIGHT EYE SCH ×2 (08:33→20:16)
[2020-07-23] MEDS: ASCORBIC ACID 500 MG TABLET PO SCH ×2 (08:33→20:15)
[2020-07-23] MEDS: CYANOCOBALAMIN 500 MCG TABLET PO SCH (08:33)
[2020-07-23] MEDS: VITAMIN E 400 UNIT CAPSULE PO SCH (08:33)
[2020-07-23] MEDS: CHOLECALCIFEROL 1,000 UNIT TABLET PO SCH (08:33)
[2020-07-23] MEDS: ROCURONIUM 500 MG in SODIUM CHLORIDE 0.9% 500 ML IV PRN (10:14)
[2020-07-23] MEDS ORDERED: MORPHINE 4 MG/1 ML VIAL IV ONE (18:02)
[2020-07-23] MEDS ORDERED: MORPHINE 4 MG/1 ML VIAL ONE (18:06)
[2020-07-23] MEDS: ATORVASTATIN 80 MG TABLET PO SCH (20:15)
[2020-07-23] MEDS: LORATADINE 10 MG TABLET PO SCH (20:15)
[2020-07-23] MEDS: TRAVOPROST 0.004% OPH SOLN 2.5 ML BOTTLE BOTH EYES SCH (20:16)
[2020-07-23] MEDS ORDERED: METOPROLOL TARTRATE 5 MG/5 ML VIAL IV ONE ×2 (21:07→21:09)
[2020-07-23] MEDS ORDERED: LABETALOL 20 MG/4 ML SYRINGE IV ONE (21:11)
[2020-07-24] MEDS: MIDAZOLAM 100 MG in SODIUM CHLORIDE 0.9% 80 ML IV PRN ×2 (00:15→20:55)
[2020-07-24] MEDS: INSULIN REGULAR 100 UNIT/ML SUBCUT SCH ×5 (00:31→23:56)
[2020-07-24] MEDS: methylPREDNISolone SOD SUC 40 MG/1 ML VIAL IV SCH ×4 (00:31→23:56)
[2020-07-24] MEDS: ALBUTEROL INHALER 18 GM INH SCH ×4 (01:11→20:59)
[2020-07-24] MEDS: CEFEPIME 1,000 MG in SODIUM CHLORIDE 0.9% 100 ML IV SCH ×4 (02:26→20:56)
[2020-07-24] MEDS: fentaNYL INJ 2,500 MCG in SODIUM CHLORIDE 0.9% 450 ML IV PRN ×2 (04:18→15:08)
[2020-07-24 04:20] LABS: ABG Base Excess 5.1 MMOL/L (-2.5-2.5); ABG HCO3 28.9 MMOL/L (20-26); ABG PCO2 55.8 MM HG (35-48); ABG PH 7.363 (7.35-7.45); Allen Test Positive; Pt O2 Delivery Device Ventilator
[2020-07-24 04:41] LABS: Basophils % 0.1 % (0.0-0.8); Eosinophils % 0.1 % (0.00-10.9); Hematocrit 32.2 VOL% (35.7-47.0); Hemoglobin 10.1 GM/DL (12.0-16.0); Lymphocytes # 0.6 10*3/uL (1.4-4.0); Lymphocytes % 3.2 % (21.3-54.2); Mean Corpuscular HGB Conc 31.4 GM/DL (32-36); Mean Platelet Volume 12.5 FL (9.6-12.0); Monocytes % 3.1 % (1.7-12.7); Neutrophils % 92.5 % (38.7-73.9); Platelet Count 357 T/CUMM (130-400); Red Cell Distribution Width 15.4 % (9.3-17.3); White Blood Count 19.7 T/CUMM (4-12)
[2020-07-24 04:54] LABS: Calcium 8.4 MG/DL (8.5-10.1); Osmolality,Calculated 295.4 MOS/KG (273-304); Potassium 4.6 MMOL/L (3.5-5.1)
[2020-07-24 05:01] LABS: Band Neutrophils 2 % (0-10); Hypochromasia 1+; Lymphocytes 1 % (20-55); Microcytosis 1+; Segmented Neutrophils 92 % (50-85); Total Cells Counted 100
[2020-07-24 05:02] LABS: Platelet Estimate Normal
[2020-07-24] MEDS: FAMOTIDINE 20 MG/2 ML VIAL IV SCH ×2 (07:04→18:31)
[2020-07-24] MEDS: ROCURONIUM 500 MG in SODIUM CHLORIDE 0.9% 500 ML IV PRN (07:08)
[2020-07-24] MEDS: VITAMIN E 400 UNIT CAPSULE PO SCH (08:29)
[2020-07-24] MEDS: CYANOCOBALAMIN 500 MCG TABLET PO SCH (08:29)
[2020-07-24] MEDS: ZINC GLUCONATE 50 MG TABLET PO SCH (08:29)
[2020-07-24] MEDS: ASCORBIC ACID 500 MG TABLET PO SCH ×2 (08:29→20:57)
[2020-07-24] MEDS: ASPIRIN CHEW 81 MG TABLET PO SCH (08:30)
[2020-07-24] MEDS: METOPROLOL TARTRATE 25 MG TABLET PO SCH ×2 (08:30→20:57)
[2020-07-24] MEDS: CHOLECALCIFEROL 1,000 UNIT TABLET PO SCH (08:30)
[2020-07-24] MEDS: FERROUS SULFATE 325 MG TABLET PO SCH (08:30)
[2020-07-24] MEDS: FUROSEMIDE 40 MG/4 ML VIAL IV SCH ×2 (08:30→15:07)
[2020-07-24] MEDS: DOCUSATE SODIUM 100 MG CAPSULE PO SCH (08:30)
[2020-07-24] MEDS: ENOXAPARIN 40 MG/0.4 ML SYRINGE SUBCUT SCH (08:31)
[2020-07-24] MEDS: KETOROLAC 0.5% OPH SOLN 5 ML BOTTLE RIGHT EYE SCH ×2 (08:32→20:58)
[2020-07-24] MEDS: INSULIN GLARGINE 100 UNIT/ML SUBCUT SCH ×2 (08:32→20:56)
[2020-07-24] MEDS: MOXIFLOXACIN 0.5% OPH SOLN 3 ML BOTTLE RIGHT EYE SCH ×2 (08:33→21:00)
[2020-07-24] MEDS: CHLORHEXIDINE 0.12% ORAL RINSE 60 ML BOTTLE SWISH/SPIT SCH ×2 (08:33→20:59)
[2020-07-24] MEDS: prednisoLONE ACETATE 1% OPH SUSP 5 ML BOTTLE RIGHT EYE SCH ×2 (08:33→20:58)
[2020-07-24] MEDS: ATORVASTATIN 80 MG TABLET PO SCH (20:57)
[2020-07-24] MEDS: LORATADINE 10 MG TABLET PO SCH (20:57)
[2020-07-24] MEDS: TRAVOPROST 0.004% OPH SOLN 2.5 ML BOTTLE BOTH EYES SCH (20:58)
[2020-07-25] MEDS: ALBUTEROL INHALER 18 GM INH SCH ×4 (00:33→18:08)
[2020-07-25] MEDS: CEFEPIME 1,000 MG in SODIUM CHLORIDE 0.9% 100 ML IV SCH ×2 (02:43→08:48)
[2020-07-25 04:02] LABS: ABG HCO3 31.1 MMOL/L (20-26); ABG Oxygen Saturation 95.6 % (95-100); ABG PCO2 47.7 MM HG (35-48); ABG PH 7.432 (7.35-7.45); ABG PO2 83.7 MM HG (80-95); ABG TCO2 32.6 MMOL/L (23-27); Allen Test Positive; Pt O2 Delivery Device Ventilator
[2020-07-25 04:28] LABS: Basophils % 0.1 % (0.0-0.8); Hematocrit 26.5 VOL% (35.7-47.0); Hemoglobin 8.3 GM/DL (12.0-16.0); Immature Granulocytes Absolute 0.17 #; Lymphocytes # 0.7 10*3/uL (1.4-4.0); Mean Corpuscular HGB Conc 31.3 GM/DL (32-36); Mean Corpuscular Volume 90.8 FL (87-102); Mean Platelet Volume 12.4 FL (9.6-12.0); Monocytes % 4.5 % (1.7-12.7); NRBC # 0.02 10*3/uL; Neutrophils % 90.4 % (38.7-73.9); Platelet Count 273 T/CUMM (130-400); Red Blood Count 2.92 MC/CUMM (3.8-5.5); Red Cell Distribution Width 15.2 % (9.3-17.3); White Blood Count 17.9 T/CUMM (4-12)
[2020-07-25 04:47] LABS: Calcium 8.3 MG/DL (8.5-10.1); Osmolality,Calculated 304.1 MOS/KG (273-304); Potassium 4.4 MMOL/L (3.5-5.1)
[2020-07-25 04:48] LABS: Band Neutrophils 1 % (0-10); Hypochromasia 1+; Lymphocytes 1 % (20-55); Microcytosis 1+; Platelet Estimate Adequate; Segmented Neutrophils 94 % (50-85); Total Cells Counted 100
[2020-07-25] MEDS: fentaNYL INJ 2,500 MCG in SODIUM CHLORIDE 0.9% 450 ML IV PRN ×2 (05:28→16:25)
[2020-07-25] MEDS: INSULIN REGULAR 100 UNIT/ML SUBCUT SCH ×4 (05:38→23:41)
[2020-07-25] MEDS: FAMOTIDINE 20 MG/2 ML VIAL IV SCH ×2 (05:39→18:06)
[2020-07-25] MEDS: ENOXAPARIN 60 MG/0.6 ML SYRINGE SUBCUT SCH ×2 (08:39→19:57)
[2020-07-25] MEDS: CHOLECALCIFEROL 1,000 UNIT TABLET PO SCH (08:40)
[2020-07-25] MEDS: INSULIN GLARGINE 100 UNIT/ML SUBCUT SCH ×2 (08:40→20:00)
[2020-07-25] MEDS: VITAMIN E 400 UNIT CAPSULE PO SCH (08:41)
[2020-07-25] MEDS: ASCORBIC ACID 500 MG TABLET PO SCH ×2 (08:41→20:00)
[2020-07-25] MEDS: DOCUSATE SODIUM 100 MG CAPSULE PO SCH (08:41)
[2020-07-25] MEDS: ASPIRIN CHEW 81 MG TABLET PO SCH (08:41)
[2020-07-25] MEDS: FERROUS SULFATE 325 MG TABLET PO SCH (08:41)
[2020-07-25] MEDS: ZINC GLUCONATE 50 MG TABLET PO SCH (08:41)
[2020-07-25] MEDS: METOPROLOL TARTRATE 25 MG TABLET PO SCH ×2 (08:42→20:01)
[2020-07-25] MEDS: FUROSEMIDE 40 MG/4 ML VIAL IV SCH ×2 (08:43→15:57)
[2020-07-25] MEDS: methylPREDNISolone SOD SUC 40 MG/1 ML VIAL IV SCH ×3 (08:45→23:35)
[2020-07-25] MEDS: KETOROLAC 0.5% OPH SOLN 5 ML BOTTLE RIGHT EYE SCH ×2 (08:49→20:00)
[2020-07-25] MEDS: CHLORHEXIDINE 0.12% ORAL RINSE 60 ML BOTTLE SWISH/SPIT SCH ×2 (08:49→20:01)
[2020-07-25] MEDS: MOXIFLOXACIN 0.5% OPH SOLN 3 ML BOTTLE RIGHT EYE SCH ×2 (08:49→20:01)
[2020-07-25] MEDS: prednisoLONE ACETATE 1% OPH SUSP 5 ML BOTTLE RIGHT EYE SCH ×2 (08:49→20:01)
[2020-07-25] MEDS: CYANOCOBALAMIN 500 MCG TABLET PO SCH (08:51)
[2020-07-25] MEDS: ATORVASTATIN 80 MG TABLET PO SCH (20:00)
[2020-07-25] MEDS: TRAVOPROST 0.004% OPH SOLN 2.5 ML BOTTLE BOTH EYES SCH (20:01)
[2020-07-25] MEDS: LORATADINE 10 MG TABLET PO SCH (20:01)
[2020-07-25] MEDS: MIDAZOLAM 100 MG in SODIUM CHLORIDE 0.9% 80 ML IV PRN (22:13)
[2020-07-26] MEDS: ALBUTEROL INHALER 18 GM INH SCH ×5 (00:33→23:59)
[2020-07-26] MEDS: fentaNYL INJ 2,500 MCG in SODIUM CHLORIDE 0.9% 450 ML IV PRN ×2 (03:32→14:50)
[2020-07-26 04:12] LABS: Basophils % 0.1 % (0.0-0.8); Immature Granulocytes % 1.3 %; Immature Granulocytes Absolute 0.24 #; Lymphocytes # 0.8 10*3/uL (1.4-4.0); Lymphocytes % 4.2 % (21.3-54.2); Mean Corpuscular Volume 90.3 FL (87-102); Mean Platelet Volume 12.9 FL (9.6-12.0); Monocytes % 5.5 % (1.7-12.7); NRBC # 0.03 10*3/uL; Neutrophils % 88.9 % (38.7-73.9); Platelet Count 310 T/CUMM (130-400); Red Blood Count 3.21 MC/CUMM (3.8-5.5); Red Cell Distribution Width 15.2 % (9.3-17.3); White Blood Count 18.8 T/CUMM (4-12)
[2020-07-26 04:26] LABS: Calcium 8.3 MG/DL (8.5-10.1); Osmolality,Calculated 304.4 MOS/KG (273-304); Potassium 4.2 MMOL/L (3.5-5.1)
[2020-07-26 04:45] LABS: Band Neutrophils 1 % (0-10); Lymphocytes 2 % (20-55); Platelet Estimate Adequate; Segmented Neutrophils 90 % (50-85); Total Cells Counted 100
[2020-07-26 04:46] LABS: Hypochromasia 1+; Microcytosis 1+
[2020-07-26 05:10] LABS: ABG Base Excess 7.5 MMOL/L (-2.5-2.5); ABG HCO3 32.3 MMOL/L (20-26); ABG Oxygen Saturation 90.5 % (95-100); ABG PCO2 47.8 MM HG (35-48); ABG PH 7.448 (7.35-7.45); ABG PO2 60.6 MM HG (80-95); ABG TCO2 33.8 MMOL/L (23-27)
[2020-07-26] MEDS: INSULIN REGULAR 100 UNIT/ML SUBCUT SCH ×4 (05:37→23:58)
[2020-07-26] MEDS: FAMOTIDINE 20 MG/2 ML VIAL IV SCH ×2 (05:38→18:19)
[2020-07-26] MEDS: FUROSEMIDE 40 MG/4 ML VIAL IV SCH (08:51)
[2020-07-26] MEDS: ENOXAPARIN 60 MG/0.6 ML SYRINGE SUBCUT SCH ×2 (08:52→20:03)
[2020-07-26] MEDS: methylPREDNISolone SOD SUC 40 MG/1 ML VIAL IV SCH ×3 (08:53→23:58)
[2020-07-26] MEDS: INSULIN GLARGINE 100 UNIT/ML SUBCUT SCH ×2 (08:55→20:03)
[2020-07-26] MEDS: VITAMIN E 400 UNIT CAPSULE PO SCH (08:55)
[2020-07-26] MEDS: DOCUSATE SODIUM 100 MG CAPSULE PO SCH (08:55)
[2020-07-26] MEDS: CYANOCOBALAMIN 500 MCG TABLET PO SCH (08:56)
[2020-07-26] MEDS: CHOLECALCIFEROL 1,000 UNIT TABLET PO SCH (08:56)
[2020-07-26] MEDS: ASPIRIN CHEW 81 MG TABLET PO SCH (08:56)
[2020-07-26] MEDS: ASCORBIC ACID 500 MG TABLET PO SCH ×2 (08:56→20:06)
[2020-07-26] MEDS: ZINC GLUCONATE 50 MG TABLET PO SCH (08:56)
[2020-07-26] MEDS: FERROUS SULFATE 325 MG TABLET PO SCH (08:56)
[2020-07-26] MEDS: METOPROLOL TARTRATE 25 MG TABLET PO SCH ×2 (08:56→20:03)
[2020-07-26] MEDS: KETOROLAC 0.5% OPH SOLN 5 ML BOTTLE RIGHT EYE SCH ×2 (09:01→20:03)
[2020-07-26] MEDS: CHLORHEXIDINE 0.12% ORAL RINSE 60 ML BOTTLE SWISH/SPIT SCH ×2 (09:01→20:04)
[2020-07-26] MEDS: prednisoLONE ACETATE 1% OPH SUSP 5 ML BOTTLE RIGHT EYE SCH ×2 (09:02→20:04)
[2020-07-26] MEDS: MOXIFLOXACIN 0.5% OPH SOLN 3 ML BOTTLE RIGHT EYE SCH ×2 (09:02→20:04)
[2020-07-26] MEDS: MIDAZOLAM 100 MG in SODIUM CHLORIDE 0.9% 80 ML IV PRN (20:02)
[2020-07-26] MEDS: ATORVASTATIN 80 MG TABLET PO SCH (20:03)
[2020-07-26] MEDS: TRAVOPROST 0.004% OPH SOLN 2.5 ML BOTTLE BOTH EYES SCH (20:04)
[2020-07-26] MEDS: LORATADINE 10 MG TABLET PO SCH (20:04)
[2020-07-27] MEDS: fentaNYL INJ 2,500 MCG in SODIUM CHLORIDE 0.9% 75 ML IV PRN ×3 (02:31→21:48)
[2020-07-27 04:30] LABS: Basophils % 0.1 % (0.0-0.8); Hematocrit 26.3 VOL% (35.7-47.0); Hemoglobin 8.1 GM/DL (12.0-16.0); Immature Granulocytes % 0.8 %; Immature Granulocytes Absolute 0.11 #; Lymphocytes # 0.9 10*3/uL (1.4-4.0); Lymphocytes % 6.5 % (21.3-54.2); Mean Corpuscular HGB Conc 30.8 GM/DL (32-36); Mean Platelet Volume 12.6 FL (9.6-12.0); Monocytes % 5.2 % (1.7-12.7); Neutrophils % 87.4 % (38.7-73.9); Platelet Count 246 T/CUMM (130-400); Red Blood Count 2.86 MC/CUMM (3.8-5.5); Red Cell Distribution Width 15.1 % (9.3-17.3); White Blood Count 14.5 T/CUMM (4-12)
[2020-07-27 04:48] LABS: ABG Base Excess 6.1 MMOL/L (-2.5-2.5); ABG Oxygen Saturation 98.8 % (95-100); ABG PCO2 49.1 MM HG (35-48); ABG PH 7.416 (7.35-7.45); Allen Test Positive; Pt O2 Delivery Device Ventilator
[2020-07-27 04:48] LABS: Calcium 8.2 MG/DL (8.5-10.1); Osmolality,Calculated 304.3 MOS/KG (273-304); Potassium 4.5 MMOL/L (3.5-5.1)
[2020-07-27] MEDS: INSULIN REGULAR 100 UNIT/ML SUBCUT SCH ×4 (05:18→23:37)
[2020-07-27 05:28] LABS: Band Neutrophils 20 % (0-10); Lymphocytes 5 % (20-55); Platelet Estimate Normal; Segmented Neutrophils 70 % (50-85); Total Cells Counted 100
[2020-07-27 05:29] LABS: Anisocytosis 2+; Macrocytosis Slight
[2020-07-27] MEDS: FAMOTIDINE 20 MG/2 ML VIAL IV SCH ×2 (05:55→18:01)
[2020-07-27] MEDS: DOCUSATE SODIUM 100 MG CAPSULE PO SCH (08:50)
[2020-07-27] MEDS: CHOLECALCIFEROL 1,000 UNIT TABLET PO SCH (08:50)
[2020-07-27] MEDS: ASPIRIN CHEW 81 MG TABLET PO SCH (08:51)
[2020-07-27] MEDS: VITAMIN E 400 UNIT CAPSULE PO SCH (08:51)
[2020-07-27] MEDS: ZINC GLUCONATE 50 MG TABLET PO SCH (08:51)
[2020-07-27] MEDS: CYANOCOBALAMIN 500 MCG TABLET PO SCH (08:51)
[2020-07-27] MEDS: FERROUS SULFATE 325 MG TABLET PO SCH (08:51)
[2020-07-27] MEDS: ASCORBIC ACID 500 MG TABLET PO SCH ×2 (08:51→21:12)
[2020-07-27] MEDS: METOPROLOL TARTRATE 25 MG TABLET PO SCH ×2 (08:51→21:12)
[2020-07-27] MEDS: ALBUTEROL INHALER 18 GM INH SCH ×3 (08:52→19:40)
[2020-07-27] MEDS: INSULIN GLARGINE 100 UNIT/ML SUBCUT SCH ×2 (08:53→23:37)
[2020-07-27] MEDS: methylPREDNISolone SOD SUC 40 MG/1 ML VIAL IV SCH ×2 (08:53→17:23)
[2020-07-27] MEDS: ENOXAPARIN 60 MG/0.6 ML SYRINGE SUBCUT SCH ×2 (08:53→21:08)
[2020-07-27] MEDS: CHLORHEXIDINE 0.12% ORAL RINSE 60 ML BOTTLE SWISH/SPIT SCH ×2 (08:54→21:26)
[2020-07-27] MEDS: prednisoLONE ACETATE 1% OPH SUSP 5 ML BOTTLE RIGHT EYE SCH ×2 (08:54→21:26)
[2020-07-27] MEDS: KETOROLAC 0.5% OPH SOLN 5 ML BOTTLE RIGHT EYE SCH ×2 (08:54→21:26)
[2020-07-27] MEDS: MOXIFLOXACIN 0.5% OPH SOLN 3 ML BOTTLE RIGHT EYE SCH ×2 (08:54→21:26)
[2020-07-27] MEDS: SODIUM CHLORIDE 0.9% 1,000 ML IV SCH (13:37)
[2020-07-27] MEDS: ATORVASTATIN 80 MG TABLET PO SCH (21:12)
[2020-07-27] MEDS: LORATADINE 10 MG TABLET PO SCH (21:13)
[2020-07-27] MEDS: TRAVOPROST 0.004% OPH SOLN 2.5 ML BOTTLE BOTH EYES SCH (21:26)
[2020-07-28] MEDS: ALBUTEROL INHALER 18 GM INH SCH ×4 (00:07→18:15)
[2020-07-28] MEDS: methylPREDNISolone SOD SUC 40 MG/1 ML VIAL IV SCH ×4 (00:07→23:49)
[2020-07-28] MEDS: MIDAZOLAM 100 MG in SODIUM CHLORIDE 0.9% 80 ML IV PRN ×2 (00:45→16:33)
[2020-07-28 03:34] LABS: ABG Base Excess 5.8 MMOL/L (-2.5-2.5); ABG HCO3 30.5 MMOL/L (20-26); ABG Oxygen Saturation 97.3 % (95-100); ABG PO2 101.2 MM HG (80-95)
[2020-07-28 04:31] LABS: Basophils % 0.1 % (0.0-0.8); Hematocrit 28.2 VOL% (35.7-47.0); Immature Granulocytes % 0.7 %; Immature Granulocytes Absolute 0.11 #; Lymphocytes # 0.9 10*3/uL (1.4-4.0); Lymphocytes % 5.7 % (21.3-54.2); Mean Corpuscular HGB Conc 31.9 GM/DL (32-36); Mean Corpuscular Volume 91.3 FL (87-102); Mean Platelet Volume 12.7 FL (9.6-12.0); Monocytes % 3.1 % (1.7-12.7); NRBC # 0.02 10*3/uL; Neutrophils % 90.4 % (38.7-73.9); Platelet Count 248 T/CUMM (130-400); Red Blood Count 3.09 MC/CUMM (3.8-5.5); Red Cell Distribution Width 15.4 % (9.3-17.3); White Blood Count 15.7 T/CUMM (4-12)
[2020-07-28 04:54] LABS: Lymphocytes 2 % (20-55); Platelet Estimate Normal; Segmented Neutrophils 96 % (50-85); Total Cells Counted 100
[2020-07-28 05:03] LABS: Calcium 8.2 MG/DL (8.5-10.1); Osmolality,Calculated 308.3 MOS/KG (273-304); Potassium 4.7 MMOL/L (3.5-5.1)
[2020-07-28] MEDS: INSULIN REGULAR 100 UNIT/ML SUBCUT SCH ×3 (05:31→18:14)
[2020-07-28] MEDS: FAMOTIDINE 20 MG/2 ML VIAL IV SCH ×2 (05:57→18:15)
[2020-07-28] MEDS: ASCORBIC ACID 500 MG TABLET PO SCH ×2 (08:12→21:00)
[2020-07-28] MEDS: CHOLECALCIFEROL 1,000 UNIT TABLET PO SCH (08:12)
[2020-07-28] MEDS: FERROUS SULFATE 325 MG TABLET PO SCH (08:12)
[2020-07-28] MEDS: VITAMIN E 400 UNIT CAPSULE PO SCH (08:12)
[2020-07-28] MEDS: METOPROLOL TARTRATE 25 MG TABLET PO SCH ×2 (08:12→21:01)
[2020-07-28] MEDS: CYANOCOBALAMIN 500 MCG TABLET PO SCH (08:12)
[2020-07-28] MEDS: ZINC GLUCONATE 50 MG TABLET PO SCH (08:13)
[2020-07-28] MEDS: ASPIRIN CHEW 81 MG TABLET PO SCH (08:13)
[2020-07-28] MEDS: INSULIN GLARGINE 100 UNIT/ML SUBCUT SCH ×2 (08:13→21:00)
[2020-07-28] MEDS: DOCUSATE SODIUM 100 MG CAPSULE PO SCH (08:13)
[2020-07-28] MEDS: ENOXAPARIN 60 MG/0.6 ML SYRINGE SUBCUT SCH ×2 (08:14→19:52)
[2020-07-28] MEDS: prednisoLONE ACETATE 1% OPH SUSP 5 ML BOTTLE RIGHT EYE SCH ×2 (08:15→21:01)
[2020-07-28] MEDS: KETOROLAC 0.5% OPH SOLN 5 ML BOTTLE RIGHT EYE SCH ×2 (08:15→21:00)
[2020-07-28] MEDS: MOXIFLOXACIN 0.5% OPH SOLN 3 ML BOTTLE RIGHT EYE SCH ×2 (08:15→21:01)
[2020-07-28] MEDS: CHLORHEXIDINE 0.12% ORAL RINSE 60 ML BOTTLE SWISH/SPIT SCH ×2 (08:15→21:01)
[2020-07-28] MEDS: fentaNYL INJ 2,500 MCG in SODIUM CHLORIDE 0.9% 75 ML IV PRN ×2 (08:23→18:14)
[2020-07-28] MEDS: MEROPENEM 500 MG in SODIUM CHLORIDE 0.9% 100 ML IV SCH ×3 (10:48→21:02)
[2020-07-28] MEDS: SODIUM CHLORIDE 0.9% 1,000 ML IV SCH (15:01)
[2020-07-28] MEDS: LORATADINE 10 MG TABLET PO SCH (21:00)
[2020-07-28] MEDS: ATORVASTATIN 80 MG TABLET PO SCH (21:00)
[2020-07-28] MEDS: TRAVOPROST 0.004% OPH SOLN 2.5 ML BOTTLE BOTH EYES SCH (21:01)
[2020-07-29] MEDS: ALBUTEROL INHALER 18 GM INH SCH ×4 (00:19→18:29)
[2020-07-29] MEDS: INSULIN REGULAR 100 UNIT/ML SUBCUT SCH ×4 (00:19→18:28)
[2020-07-29 03:00] LABS: ABG Base Excess 4.6 MMOL/L (-2.5-2.5); ABG HCO3 28.3 MMOL/L (20-26); ABG Oxygen Saturation 90.1 % (95-100); ABG PCO2 45.8 MM HG (35-48); ABG PH 7.421 (7.35-7.45); ABG PO2 60.7 MM HG (80-95); ABG TCO2 26.7 MMOL/L (23-27); Allen Test Positive; Pt O2 Delivery Device Ventilator
[2020-07-29] MEDS: fentaNYL INJ 2,500 MCG in SODIUM CHLORIDE 0.9% 75 ML IV PRN ×2 (04:35→14:43)
[2020-07-29 04:36] LABS: Basophils % 0.1 % (0.0-0.8); Hematocrit 27.5 VOL% (35.7-47.0); Hemoglobin 8.6 GM/DL (12.0-16.0); Immature Granulocytes % 0.8 %; Immature Granulocytes Absolute 0.14 #; Lymphocytes # 0.5 10*3/uL (1.4-4.0); Lymphocytes % 3.2 % (21.3-54.2); Mean Corpuscular HGB Conc 31.3 GM/DL (32-36); Mean Corpuscular Volume 91.7 FL (87-102); Mean Platelet Volume 12.9 FL (9.6-12.0); Monocytes % 3.1 % (1.7-12.7); Neutrophils % 92.8 % (38.7-73.9); Platelet Count 240 T/CUMM (130-400); Red Cell Distribution Width 15.3 % (9.3-17.3); White Blood Count 17.1 T/CUMM (4-12)
[2020-07-29] MEDS: MEROPENEM 500 MG in SODIUM CHLORIDE 0.9% 100 ML IV SCH ×4 (04:44→20:41)
[2020-07-29 04:56] LABS: Hypochromasia 1+; Lymphocytes 3 % (20-55); Microcytosis 1+; Platelet Estimate Adequate; Segmented Neutrophils 91 % (50-85); Total Cells Counted 100
[2020-07-29 04:59] LABS: Albumin 1.4 G/DL (3.4-5.0); Bilirubin,Total 0.4 MG/DL (0.2-1.0); Calcium 8.2 MG/DL (8.5-10.1); Osmolality,Calculated 309.5 MOS/KG (273-304); Potassium 4.7 MMOL/L (3.5-5.1); Total Protein 6.5 G/DL (6.4-8.2)
[2020-07-29] MEDS: FAMOTIDINE 20 MG/2 ML VIAL IV SCH ×2 (05:39→18:28)
[2020-07-29] MEDS: CYANOCOBALAMIN 500 MCG TABLET PO SCH (08:23)
[2020-07-29] MEDS: CHOLECALCIFEROL 1,000 UNIT TABLET PO SCH (08:23)
[2020-07-29] MEDS: ASCORBIC ACID 500 MG TABLET PO SCH ×2 (08:24→20:40)
[2020-07-29] MEDS: METOPROLOL TARTRATE 25 MG TABLET PO SCH ×2 (08:24→20:42)
[2020-07-29] MEDS: ZINC GLUCONATE 50 MG TABLET PO SCH (08:24)
[2020-07-29] MEDS: INSULIN GLARGINE 100 UNIT/ML SUBCUT SCH ×2 (08:24→20:40)
[2020-07-29] MEDS: VITAMIN E 400 UNIT CAPSULE PO SCH (08:26)
[2020-07-29] MEDS: ENOXAPARIN 60 MG/0.6 ML SYRINGE SUBCUT SCH ×2 (08:26→20:39)
[2020-07-29] MEDS: DOCUSATE SODIUM 100 MG CAPSULE PO SCH (08:26)
[2020-07-29] MEDS: ASPIRIN CHEW 81 MG TABLET PO SCH (08:26)
[2020-07-29] MEDS: FERROUS SULFATE 325 MG TABLET PO SCH (08:26)
[2020-07-29] MEDS: prednisoLONE ACETATE 1% OPH SUSP 5 ML BOTTLE RIGHT EYE SCH ×2 (08:27→20:42)
[2020-07-29] MEDS: KETOROLAC 0.5% OPH SOLN 5 ML BOTTLE RIGHT EYE SCH ×2 (08:27→20:41)
[2020-07-29] MEDS: MOXIFLOXACIN 0.5% OPH SOLN 3 ML BOTTLE RIGHT EYE SCH ×2 (08:28→20:42)
[2020-07-29] MEDS: CHLORHEXIDINE 0.12% ORAL RINSE 60 ML BOTTLE SWISH/SPIT SCH ×2 (08:28→20:41)
[2020-07-29] MEDS: methylPREDNISolone SOD SUC 40 MG/1 ML VIAL IV SCH ×3 (09:22→20:41)
[2020-07-29] MEDS: ALBUMIN 25% 12.5 GM/50 ML VIAL IV SCH ×2 (10:35→16:47)
[2020-07-29] MEDS: MIDAZOLAM 100 MG in SODIUM CHLORIDE 0.9% 80 ML IV PRN (11:23)
[2020-07-29] MEDS: SODIUM CHLORIDE 0.9% 1,000 ML IV SCH (16:37)
[2020-07-29] MEDS: LORATADINE 10 MG TABLET PO SCH (20:40)
[2020-07-29] MEDS: ATORVASTATIN 80 MG TABLET PO SCH (20:40)
[2020-07-29] MEDS: TRAVOPROST 0.004% OPH SOLN 2.5 ML BOTTLE BOTH EYES SCH (20:42)
[2020-07-30] MEDS: ALBUMIN 25% 12.5 GM/50 ML VIAL IV SCH (00:17)
[2020-07-30] MEDS: ALBUTEROL INHALER 18 GM INH SCH ×4 (00:18→20:28)
[2020-07-30] MEDS: INSULIN REGULAR 100 UNIT/ML SUBCUT SCH ×4 (00:18→17:59)
[2020-07-30] MEDS: fentaNYL INJ 2,500 MCG in SODIUM CHLORIDE 0.9% 75 ML IV PRN ×5 (01:17→22:35)
[2020-07-30] MEDS: MEROPENEM 500 MG in SODIUM CHLORIDE 0.9% 100 ML IV SCH ×4 (02:59→20:40)
[2020-07-30 03:30] LABS: ABG Base Excess 4.1 MMOL/L (-2.5-2.5); ABG HCO3 28.1 MMOL/L (20-26); ABG Oxygen Saturation 97.2 % (95-100); ABG PCO2 44.7 MM HG (35-48); ABG PO2 88.1 MM HG (80-95); ABG TCO2 27.2 MMOL/L (23-27)
[2020-07-30 04:35] LABS: Hematocrit 23.5 VOL% (35.7-47.0); Hemoglobin 7.2 GM/DL (12.0-16.0); Immature Granulocytes Absolute 0.13 #; Lymphocytes # 0.6 10*3/uL (1.4-4.0); Lymphocytes % 4.6 % (21.3-54.2); Mean Corpuscular HGB Conc 30.6 GM/DL (32-36); Mean Corpuscular Volume 92.2 FL (87-102); Mean Platelet Volume 12.9 FL (9.6-12.0); NRBC # 0.02 10*3/uL; Neutrophils % 91.4 % (38.7-73.9); Platelet Count 197 T/CUMM (130-400); Red Blood Count 2.55 MC/CUMM (3.8-5.5); Red Cell Distribution Width 15.4 % (9.3-17.3); White Blood Count 12.6 T/CUMM (4-12)
[2020-07-30 04:59] LABS: Bilirubin,Total 0.5 MG/DL (0.2-1.0); Calcium 7.9 MG/DL (8.5-10.1); Osmolality,Calculated 309.1 MOS/KG (273-304); Potassium 4.6 MMOL/L (3.5-5.1); Total Protein 5.9 G/DL (6.4-8.2)
[2020-07-30 05:00] LABS: Band Neutrophils 2 % (0-10); Hypochromasia 1+; Lymphocytes 8 % (20-55); Platelet Estimate Normal; Segmented Neutrophils 89 % (50-85)
[2020-07-30 05:01] LABS: Total Cells Counted 100
[2020-07-30] MEDS: DEXTROSE 50% 25 GM/50 ML VIAL IV PRN ×3 (05:20→23:35)
[2020-07-30] MEDS: FAMOTIDINE 20 MG/2 ML VIAL IV SCH ×2 (06:10→19:12)
[2020-07-30] MEDS: ENOXAPARIN 60 MG/0.6 ML SYRINGE SUBCUT SCH (08:23)
[2020-07-30] MEDS: methylPREDNISolone SOD SUC 40 MG/1 ML VIAL IV SCH ×2 (08:23→20:40)
[2020-07-30] MEDS: ASCORBIC ACID 500 MG TABLET PO SCH ×2 (08:24→20:31)
[2020-07-30] MEDS: CHOLECALCIFEROL 1,000 UNIT TABLET PO SCH (08:24)
[2020-07-30] MEDS: ASPIRIN CHEW 81 MG TABLET PO SCH (08:24)
[2020-07-30] MEDS: METOPROLOL TARTRATE 25 MG TABLET PO SCH ×2 (08:24→20:37)
[2020-07-30] MEDS: ZINC GLUCONATE 50 MG TABLET PO SCH (08:24)
[2020-07-30] MEDS: VITAMIN E 400 UNIT CAPSULE PO SCH (08:24)
[2020-07-30] MEDS: FERROUS SULFATE 325 MG TABLET PO SCH (08:25)
[2020-07-30] MEDS: KETOROLAC 0.5% OPH SOLN 5 ML BOTTLE RIGHT EYE SCH ×2 (08:25→20:30)
[2020-07-30] MEDS: prednisoLONE ACETATE 1% OPH SUSP 5 ML BOTTLE RIGHT EYE SCH ×2 (08:26→20:31)
[2020-07-30] MEDS: CHLORHEXIDINE 0.12% ORAL RINSE 60 ML BOTTLE SWISH/SPIT SCH ×2 (08:26→20:31)
[2020-07-30] MEDS: MOXIFLOXACIN 0.5% OPH SOLN 3 ML BOTTLE RIGHT EYE SCH ×2 (08:27→20:31)
[2020-07-30] MEDS: CYANOCOBALAMIN 500 MCG TABLET PO SCH (08:29)
[2020-07-30] MEDS: MIDAZOLAM 100 MG in SODIUM CHLORIDE 0.9% 80 ML IV PRN ×2 (09:22→23:01)
[2020-07-30] MEDS: DOCUSATE SODIUM 100 MG CAPSULE PO SCH (09:38)
[2020-07-30] MEDS: INSULIN GLARGINE 100 UNIT/ML SUBCUT SCH ×2 (09:54→20:12)
[2020-07-30] MEDS: DOCUSATE SODIUM 100 MG/10 ML UDCUP PER TUBE SCH (11:51)
[2020-07-30] MEDS: SODIUM CHLORIDE 0.9% 1,000 ML IV SCH (13:35)
[2020-07-30] MEDS ORDERED: MIDAZOLAM 2 MG/2 ML VIAL IV ONE ×2 (13:46→14:49)
[2020-07-30] MEDS ORDERED: MIDAZOLAM 2 MG/2 ML VIAL ONE (13:48)
[2020-07-30] MEDS ORDERED: SUCCINYLCHOLINE 200 MG/10 ML VIAL ONE (14:05)
[2020-07-30] MEDS ORDERED: SUCCINYLCHOLINE 200 MG/10 ML VIAL IV ONE ×2 (14:05→14:48)
[2020-07-30] MEDS ORDERED: FUROSEMIDE 40 MG/4 ML VIAL ONE (14:42)
[2020-07-30] MEDS ORDERED: propofoL 200 MG/20 ML VIAL IV ONE (14:59)
[2020-07-30 15:22] LABS: Allen Test Positive; Pt O2 Delivery Device Ventilator
[2020-07-30 15:24] LABS: ABG Base Excess 4.1 MMOL/L (-2.5-2.5); ABG HCO3 27.7 MMOL/L (20-26); ABG Oxygen Saturation 74.6 % (95-100); ABG PCO2 41.8 MM HG (35-48); ABG PH 7.442 (7.35-7.45); ABG PO2 41.6 MM HG (80-95); ABG TCO2 26.4 MMOL/L (23-27)
[2020-07-30 15:34] LABS: Hematocrit 27.4 VOL% (35.7-47.0); Hemoglobin 8.5 GM/DL (12.0-16.0)
[2020-07-30 17:05] LABS: Bilirubin,Urine Negative (Negative); Blood, Urine Moderate mg/dL (Negative); Glucose,Urine (UA) Negative (Negative); Ketones,Urine Negative (Negative); Nitrite,Urine Negative (Negative); Protein,Urine 100 MG/DL; RBC,Urine 42 /HPF (0-4); Urine Appearance CLOUDY (Clear); Urine Color Yellow (Yellow); Urine Specific Gravity 1.006 (1.001-1.035); Urine Urobilinogen < 2.0 EU/DL (0.2-1.0)
[2020-07-30] MEDS ORDERED: VANCOMYCIN INJ 1,000 MG in SODIUM CHLORIDE 0.9% 250 ML IV SCH (17:30)
[2020-07-30] MEDS ORDERED: BUMETANIDE 1 MG/4 ML VIAL IV ONE (18:00)
[2020-07-30 18:05] LABS: Basophils % 0.2 % (0.0-0.8); Eosinophils # 0.1 10*3/uL (0.0-0.87); Eosinophils % 0.5 % (0.00-10.9); Hematocrit 30.7 VOL% (35.7-47.0); Hemoglobin 9.3 GM/DL (12.0-16.0); Immature Granulocytes % 1.9 %; Immature Granulocytes Absolute 0.51 #; Lymphocytes % 7.7 % (21.3-54.2); Mean Corpuscular HGB Conc 30.3 GM/DL (32-36); Mean Corpuscular Volume 93.9 FL (87-102); Mean Platelet Volume 12.5 FL (9.6-12.0); Monocytes % 2.2 % (1.7-12.7); NRBC # 0.07 10*3/uL; Neutrophils % 87.5 % (38.7-73.9); Platelet Count 334 T/CUMM (130-400); Red Blood Count 3.27 MC/CUMM (3.8-5.5); Red Cell Distribution Width 15.7 % (9.3-17.3); White Blood Count 26.4 T/CUMM (4-12)
[2020-07-30 18:38] LABS: Band Neutrophils 7 % (0-10); Lymphocytes 6 % (20-55); Myelocytes 1 %; Nucleated Red Blood Cells 1 (0-5); Segmented Neutrophils 85 % (50-85); Total Cells Counted 100
[2020-07-30 18:40] LABS: Hypochromasia 2+; Microcytosis 2+
[2020-07-30 18:41] LABS: Atypical Lymphocytes Few; Ovalocytes Few; Platelet Estimate Increased; Polychromasia Few; Schistocytes Few
[2020-07-30] MEDS: ROCURONIUM 500 MG in SODIUM CHLORIDE 0.9% 500 ML IV PRN (19:00)
[2020-07-30] MEDS ORDERED: HEPARIN DRIP 25,000 UNITS/500 ML PREMIX IV SCH (19:00)
[2020-07-30] MEDS ORDERED: VANCOMYCIN INJ 2,250 MG in SODIUM CHLORIDE 0.9% 500 ML IV ONE (20:00)
[2020-07-30] MEDS ORDERED: NOREPINEPHRINE 4 MG/4 ML VIAL IV ONE (20:21)
[2020-07-30] MEDS: NOREPINEPHRINE 8 MG in SODIUM CHLORIDE 0.9% 242 ML IV PRN (20:25)
[2020-07-30] MEDS: LORATADINE 10 MG TABLET PO SCH (20:30)
[2020-07-30] MEDS: ATORVASTATIN 80 MG TABLET PO SCH (20:31)
[2020-07-30] MEDS: TRAVOPROST 0.004% OPH SOLN 2.5 ML BOTTLE BOTH EYES SCH (20:31)
[2020-07-30 21:36] LABS: Basophils % 0.2 % (0.0-0.8); Eosinophils % 0.1 % (0.00-10.9); Hematocrit 29.7 VOL% (35.7-47.0); Hemoglobin 8.7 GM/DL (12.0-16.0); Immature Granulocytes % 1.5 %; Immature Granulocytes Absolute 0.37 #; Lymphocytes # 2.1 10*3/uL (1.4-4.0); Lymphocytes % 8.7 % (21.3-54.2); Mean Corpuscular HGB Conc 29.3 GM/DL (32-36); Mean Corpuscular Volume 97.4 FL (87-102); Mean Platelet Volume 12.3 FL (9.6-12.0); Monocytes % 1.4 % (1.7-12.7); NRBC # 0.13 10*3/uL; Neutrophils % 88.1 % (38.7-73.9); Platelet Count 304 T/CUMM (130-400); Red Blood Count 3.05 MC/CUMM (3.8-5.5); Red Cell Distribution Width 15.9 % (9.3-17.3); White Blood Count 24.6 T/CUMM (4-12)
[2020-07-30 22:44] LABS: Band Neutrophils 12 % (0-10); Hypochromasia 1+; Lymphocytes 8 % (20-55); Metamyelocytes 3 %; Myelocytes 1 %; Platelet Estimate Normal; Segmented Neutrophils 75 % (50-85)
[2020-07-30 22:45] LABS: Polychromasia Few; Total Cells Counted 100
[2020-07-31] MEDS: INSULIN REGULAR 100 UNIT/ML SUBCUT SCH ×5 (00:08→23:41)
[2020-07-31] MEDS: ROCURONIUM 500 MG in SODIUM CHLORIDE 0.9% 500 ML IV PRN ×3 (00:31→18:31)
[2020-07-31 01:11] LABS: Basophils # 0.1 10*3/uL (0.0-0.2); Basophils % 0.3 % (0.0-0.8); Hematocrit 27.6 VOL% (35.7-47.0); Hemoglobin 8.3 GM/DL (12.0-16.0); Immature Granulocytes % 2.5 %; Immature Granulocytes Absolute 0.85 #; Lymphocytes # 2.1 10*3/uL (1.4-4.0); Lymphocytes % 6.3 % (21.3-54.2); Mean Corpuscular HGB Conc 30.1 GM/DL (32-36); Mean Corpuscular Volume 96.2 FL (87-102); Mean Platelet Volume 12.4 FL (9.6-12.0); Monocytes % 1.6 % (1.7-12.7); NRBC # 0.14 10*3/uL; Neutrophils % 89.3 % (38.7-73.9); Platelet Count 270 T/CUMM (130-400); Red Blood Count 2.87 MC/CUMM (3.8-5.5); Red Cell Distribution Width 15.6 % (9.3-17.3)
[2020-07-31] MEDS: fentaNYL INJ 2,500 MCG in SODIUM CHLORIDE 0.9% 75 ML IV PRN ×7 (01:44→21:15)
[2020-07-31] MEDS: ALBUTEROL INHALER 18 GM INH SCH ×4 (01:44→20:38)
[2020-07-31] MEDS: MEROPENEM 500 MG in SODIUM CHLORIDE 0.9% 100 ML IV SCH ×3 (02:48→17:39)
[2020-07-31 02:55] LABS: Band Neutrophils 25 % (0-10); Lymphocytes 4 % (20-55); Metamyelocytes 7 %; Myelocytes 1 %; Nucleated Red Blood Cells 1 (0-5); Segmented Neutrophils 62 % (50-85); Total Cells Counted 100
[2020-07-31 02:56] LABS: Burr Cells 2+; Hypochromasia Slight; Platelet Estimate Normal; Polychromasia Few
[2020-07-31 02:57] LABS: Ovalocytes 1+; Schistocytes Few
[2020-07-31] MEDS ORDERED: ALBUMIN 5% 12.5 GM/250 ML VIAL IV ONE (03:43)
[2020-07-31 03:47] LABS: Basophils # 0.1 10*3/uL (0.0-0.2); Basophils % 0.2 % (0.0-0.8); Eosinophils % 0.1 % (0.00-10.9); Hematocrit 26.8 VOL% (35.7-47.0); Hemoglobin 7.9 GM/DL (12.0-16.0); Immature Granulocytes % 3.8 %; Lymphocytes # 2.2 10*3/uL (1.4-4.0); Lymphocytes % 5.6 % (21.3-54.2); Mean Corpuscular HGB Conc 29.5 GM/DL (32-36); Mean Corpuscular Volume 97.8 FL (87-102); Mean Platelet Volume 12.7 FL (9.6-12.0); Monocytes % 1.8 % (1.7-12.7); NRBC # 0.18 10*3/uL; Neutrophils % 88.5 % (38.7-73.9); Platelet Count 257 T/CUMM (130-400); Red Blood Count 2.74 MC/CUMM (3.8-5.5); Red Cell Distribution Width 15.7 % (9.3-17.3); White Blood Count 39.8 T/CUMM (4-12)
[2020-07-31 03:56] LABS: INR 1.2
[2020-07-31 04:03] LABS: Albumin 1.6 G/DL (3.4-5.0); Bilirubin,Total 0.4 MG/DL (0.2-1.0); Calcium 7.6 MG/DL (8.5-10.1); Potassium 5.7 MMOL/L (3.5-5.1); Total Protein 6.1 G/DL (6.4-8.2)
[2020-07-31 04:15] LABS: Band Neutrophils 20 % (0-10); Lymphocytes 4 % (20-55); Metamyelocytes 1 %; Myelocytes 1 %; Nucleated Red Blood Cells 2 (0-5); Segmented Neutrophils 73 % (50-85); Total Cells Counted 100
[2020-07-31 04:16] LABS: Hypochromasia 1+; Microcytosis 1+
[2020-07-31 04:17] LABS: Ovalocytes Slight; Platelet Estimate Normal; Polychromasia Slight
[2020-07-31 04:39] LABS: ABG Base Excess -3.7 MMOL/L (-2.5-2.5); ABG HCO3 27.6 MMOL/L (20-26); ABG Oxygen Saturation 53.5 % (95-100); ABG TCO2 30.9 MMOL/L (23-27); Allen Test Positive; Pt O2 Delivery Device Ventilator
[2020-07-31 04:47] LABS: ABG PCO2 105.8 MM HG (35-48); ABG PH 7.035 (7.35-7.45); ABG PO2 35.8 MM HG (80-95)
[2020-07-31 06:11] LABS: ABG Base Excess -2.7 MMOL/L (-2.5-2.5); ABG HCO3 21.7 MMOL/L (20-26); ABG Oxygen Saturation 59.9 % (95-100); ABG TCO2 26.9 MMOL/L (23-27)
[2020-07-31 06:13] LABS: ABG PCO2 81.1 MM HG (35-48); ABG PH 7.139 (7.35-7.45); ABG PO2 35.4 MM HG (80-95)
[2020-07-31] MEDS: NOREPINEPHRINE 8 MG in SODIUM CHLORIDE 0.9% 242 ML IV PRN ×3 (06:15→18:52)
[2020-07-31] MEDS: FAMOTIDINE 20 MG/2 ML VIAL IV SCH ×2 (06:23→18:31)
[2020-07-31] MEDS ORDERED: SODIUM BICARBONATE 50 MEQ/50 ML VIAL IV ONE (06:39)
[2020-07-31] MEDS: KETOROLAC 0.5% OPH SOLN 5 ML BOTTLE RIGHT EYE SCH ×2 (08:13→20:39)
[2020-07-31] MEDS: MOXIFLOXACIN 0.5% OPH SOLN 3 ML BOTTLE RIGHT EYE SCH ×2 (08:13→20:39)
[2020-07-31] MEDS: prednisoLONE ACETATE 1% OPH SUSP 5 ML BOTTLE RIGHT EYE SCH ×2 (08:14→20:39)
[2020-07-31] MEDS ORDERED: CALCIUM CHLORIDE 1,000 MG/10 ML SYRINGE IV ONE (08:27)
[2020-07-31] MEDS ORDERED: INSULIN REGULAR 100 UNIT/ML IV ONE (08:27)
[2020-07-31] MEDS: DEXTROSE 50% 25 GM/50 ML VIAL IV PRN ×2 (08:44→17:40)
[2020-07-31] MEDS: ASPIRIN CHEW 81 MG TABLET PO SCH (08:49)
[2020-07-31] MEDS: DOCUSATE SODIUM 100 MG/10 ML UDCUP PER TUBE SCH (08:50)
[2020-07-31] MEDS: INSULIN GLARGINE 100 UNIT/ML SUBCUT SCH ×2 (08:50→21:10)
[2020-07-31] MEDS: FERROUS SULFATE 325 MG TABLET PO SCH (08:50)
[2020-07-31] MEDS: methylPREDNISolone SOD SUC 40 MG/1 ML VIAL IV SCH ×2 (08:51→20:40)
[2020-07-31] MEDS: CHLORHEXIDINE 0.12% ORAL RINSE 60 ML BOTTLE SWISH/SPIT SCH ×2 (08:51→20:40)
[2020-07-31] MEDS: METOPROLOL TARTRATE 25 MG TABLET PO SCH (08:51)
[2020-07-31] MEDS: CHOLECALCIFEROL 1,000 UNIT TABLET PO SCH (08:51)
[2020-07-31] MEDS: ASCORBIC ACID 500 MG TABLET PO SCH ×2 (08:51→20:41)
[2020-07-31] MEDS: ZINC GLUCONATE 50 MG TABLET PO SCH (08:51)
[2020-07-31] MEDS: VITAMIN E 400 UNIT CAPSULE PO SCH (08:51)
[2020-07-31] MEDS: CYANOCOBALAMIN 500 MCG TABLET PO SCH (08:51)
[2020-07-31] MEDS ORDERED: CALCIUM GLUCONATE 1,000 MG in SODIUM CHLORIDE 0.9% 100 ML IV ONE (11:00)
[2020-07-31] MEDS: SODIUM CHLORIDE 0.9% 1,000 ML IV SCH (11:10)
[2020-07-31] MEDS: MIDAZOLAM 100 MG in SODIUM CHLORIDE 0.9% 80 ML IV PRN ×2 (11:12→23:47)
[2020-07-31 13:05] LABS: Basophils # 0.1 10*3/uL (0.0-0.2); Basophils % 0.2 % (0.0-0.8); Hematocrit 24.5 VOL% (35.7-47.0); Hemoglobin 7.5 GM/DL (12.0-16.0); Immature Granulocytes % 3.2 %; Immature Granulocytes Absolute 1.18 #; Lymphocytes # 1.8 10*3/uL (1.4-4.0); Lymphocytes % 4.9 % (21.3-54.2); Mean Corpuscular HGB Conc 30.6 GM/DL (32-36); Mean Platelet Volume 12.7 FL (9.6-12.0); Monocytes % 2.2 % (1.7-12.7); NRBC # 0.09 10*3/uL; Neutrophils % 89.5 % (38.7-73.9); Platelet Count 194 T/CUMM (130-400); Red Blood Count 2.58 MC/CUMM (3.8-5.5); Red Cell Distribution Width 14.9 % (9.3-17.3); White Blood Count 37.2 T/CUMM (4-12)
[2020-07-31 13:24] LABS: Calcium 7.6 MG/DL (8.5-10.1); Potassium 5.7 MMOL/L (3.5-5.1)
[2020-07-31 13:39] LABS: Band Neutrophils 1 % (0-10); Myelocytes 5 %; Nucleated Red Blood Cells 1 (0-5); Segmented Neutrophils 92 % (50-85); Total Cells Counted 100
[2020-07-31] MEDS ORDERED: VANCOMYCIN INJ 1,500 MG in SODIUM CHLORIDE 0.9% 500 ML IV SCH (14:00)
[2020-07-31] MEDS: SODIUM ZIRCONIUM CYCLOSILICATE 10 GM PACK PO SCH (15:47)
[2020-07-31] MEDS: TRAVOPROST 0.004% OPH SOLN 2.5 ML BOTTLE BOTH EYES SCH (20:40)
[2020-07-31] MEDS: LORATADINE 10 MG TABLET PO SCH (20:41)
[2020-07-31] MEDS ORDERED: ACETAMINOPHEN 325 MG/10.15 ML UDCUP PO PRN (22:25)
[2020-08-01] MEDS: fentaNYL INJ 2,500 MCG in SODIUM CHLORIDE 0.9% 75 ML IV PRN ×6 (00:40→23:25)
[2020-08-01] MEDS: NOREPINEPHRINE 16 MG in SODIUM CHLORIDE 0.9% 234 ML IV PRN ×3 (00:40→16:01)
[2020-08-01 01:00] LABS: Basophils % 0.1 % (0.0-0.8); Hematocrit 20.6 VOL% (35.7-47.0); Immature Granulocytes % 3.7 %; Immature Granulocytes Absolute 1.21 #; Lymphocytes # 1.7 10*3/uL (1.4-4.0); Lymphocytes % 5.2 % (21.3-54.2); Mean Corpuscular HGB Conc 29.6 GM/DL (32-36); Mean Corpuscular Volume 97.6 FL (87-102); Monocytes % 2.4 % (1.7-12.7); NRBC # 0.13 10*3/uL; Neutrophils % 88.6 % (38.7-73.9); Platelet Count 185 T/CUMM (130-400); Red Blood Count 2.11 MC/CUMM (3.8-5.5); Red Cell Distribution Width 15.4 % (9.3-17.3); White Blood Count 32.5 T/CUMM (4-12)
[2020-08-01 01:03] LABS: Hemoglobin 6.1 GM/DL (12.0-16.0)
[2020-08-01] MEDS: MEROPENEM 500 MG in SODIUM CHLORIDE 0.9% 100 ML IV SCH (01:04)
[2020-08-01] MEDS: ALBUTEROL INHALER 18 GM INH SCH ×3 (01:11→16:28)
[2020-08-01 01:51] LABS: Band Neutrophils 6 % (0-10); Lymphocytes 3 % (20-55); Platelet Estimate Normal; Segmented Neutrophils 89 % (50-85); Total Cells Counted 100
[2020-08-01 01:52] LABS: Hypochromasia 1+
[2020-08-01 03:22] LABS: Basophils % 0.1 % (0.0-0.8); Hematocrit 19.8 VOL% (35.7-47.0); Immature Granulocytes % 5.1 %; Immature Granulocytes Absolute 1.58 #; Lymphocytes # 1.7 10*3/uL (1.4-4.0); Lymphocytes % 5.6 % (21.3-54.2); Mean Corpuscular HGB Conc 29.3 GM/DL (32-36); Monocytes % 2.4 % (1.7-12.7); NRBC # 0.15 10*3/uL; Neutrophils % 86.8 % (38.7-73.9); Platelet Count 185 T/CUMM (130-400); Red Blood Count 2.02 MC/CUMM (3.8-5.5); Red Cell Distribution Width 15.4 % (9.3-17.3); White Blood Count 30.9 T/CUMM (4-12)
[2020-08-01 03:23] LABS: Hemoglobin 5.8 GM/DL (12.0-16.0)
[2020-08-01] MEDS: DEXTROSE 50% 25 GM/50 ML VIAL IV PRN ×2 (03:23→13:22)
[2020-08-01] MEDS: ROCURONIUM 500 MG in SODIUM CHLORIDE 0.9% 500 ML IV PRN ×2 (03:28→13:22)
[2020-08-01 03:31] LABS: INR 1.5; PT Patient Result 16.1 SECS (10.5-12.0)
[2020-08-01 03:37] LABS: Albumin 1.6 G/DL (3.4-5.0); Bilirubin,Total 1.4 MG/DL (0.2-1.0); Calcium 7.1 MG/DL (8.5-10.1); Osmolality,Calculated 308.3 MOS/KG (273-304); Total Protein 5.5 G/DL (6.4-8.2)
[2020-08-01 03:40] LABS: Potassium 6.4 MMOL/L (3.5-5.1)
[2020-08-01 03:58] LABS: Band Neutrophils 4 % (0-10); Burr Cells Few; Hypochromasia 2+; Lymphocytes 4 % (20-55); Nucleated Red Blood Cells 1 (0-5); Platelet Estimate Normal; Segmented Neutrophils 89 % (50-85); Total Cells Counted 100
[2020-08-01] MEDS ORDERED: SODIUM POLYSTYRENE SULFATE 15 GM/60 ML BOTTLE RECTAL ONE (04:03)
[2020-08-01] MEDS ORDERED: INSULIN REGULAR 10 UNIT, CALCIUM GLUCONATE 1,000 MG in DEXTROSE 10% 250 ML IV ONE (04:03)
[2020-08-01 04:34] LABS: Allen Test Positive; Pt O2 Delivery Device Ventilator
[2020-08-01 04:36] LABS: ABG Base Excess -13.1 MMOL/L (-2.5-2.5); ABG HCO3 16.9 MMOL/L (20-26); ABG Oxygen Saturation 98.7 % (95-100); ABG PCO2 64.4 MM HG (35-48); ABG PO2 191.1 MM HG (80-95); ABG TCO2 18.9 MMOL/L (23-27)
[2020-08-01 04:39] LABS: ABG PH 7.038 (7.35-7.45)
[2020-08-01] MEDS ORDERED: SODIUM BICARBONATE 50 MEQ/50 ML VIAL IV ONE (04:48)
[2020-08-01] MEDS: INSULIN REGULAR 100 UNIT/ML SUBCUT SCH ×2 (05:25→12:58)
[2020-08-01] MEDS: FAMOTIDINE 20 MG/2 ML VIAL IV SCH (06:34)
[2020-08-01 07:14] VITALS: BP 89/47
[2020-08-01] MEDS: MIDAZOLAM 100 MG in SODIUM CHLORIDE 0.9% 80 ML IV PRN (11:03)
[2020-08-01 11:35] LABS: Hematocrit 31.7 VOL% (35.7-47.0)
[2020-08-01 11:37] LABS: Hemoglobin 9.8 GM/DL (12.0-16.0)
[2020-08-01] MEDS: ASPIRIN CHEW 81 MG TABLET PO SCH (12:45)
[2020-08-01] MEDS: KETOROLAC 0.5% OPH SOLN 5 ML BOTTLE RIGHT EYE SCH (12:45)
[2020-08-01] MEDS: DOCUSATE SODIUM 100 MG/10 ML UDCUP PER TUBE SCH (12:46)
[2020-08-01] MEDS: FERROUS SULFATE 325 MG TABLET PO SCH (12:52)
[2020-08-01] MEDS: INSULIN GLARGINE 100 UNIT/ML SUBCUT SCH (12:52)
[2020-08-01] MEDS: methylPREDNISolone SOD SUC 40 MG/1 ML VIAL IV SCH ×2 (12:53→21:41)
[2020-08-01] MEDS: prednisoLONE ACETATE 1% OPH SUSP 5 ML BOTTLE RIGHT EYE SCH (12:53)
[2020-08-01] MEDS: SODIUM ZIRCONIUM CYCLOSILICATE 10 GM PACK PO SCH (12:53)
[2020-08-01] MEDS: CHLORHEXIDINE 0.12% ORAL RINSE 60 ML BOTTLE SWISH/SPIT SCH (12:53)
[2020-08-01] MEDS: ASCORBIC ACID 500 MG TABLET PO SCH (12:57)
[2020-08-01] MEDS: ZINC GLUCONATE 50 MG TABLET PO SCH (12:57)
[2020-08-01] MEDS: CHOLECALCIFEROL 1,000 UNIT TABLET PO SCH (12:57)
[2020-08-01] MEDS: MOXIFLOXACIN 0.5% OPH SOLN 3 ML BOTTLE RIGHT EYE SCH (12:57)
[2020-08-01] MEDS: VITAMIN E 400 UNIT CAPSULE PO SCH (12:57)
[2020-08-01] MEDS: CYANOCOBALAMIN 500 MCG TABLET PO SCH (12:57)
[2020-08-01] MEDS ORDERED: MEROPENEM 500 MG in SODIUM CHLORIDE 0.9% 100 ML IV SCH (13:00)
[2020-08-01] MEDS: SODIUM CHLORIDE 0.9% 1,000 ML IV SCH (15:58)
[2020-08-02] MEDS: NOREPINEPHRINE 16 MG in SODIUM CHLORIDE 0.9% 234 ML IV PRN (00:50)
[2020-08-02] MEDS: fentaNYL INJ 2,500 MCG in SODIUM CHLORIDE 0.9% 75 ML IV PRN ×2 (02:42→06:45)
[2020-08-02] MEDS ORDERED: MORPHINE 4 MG/1 ML VIAL IV PRN (08:23)
[2020-08-02] MEDS ORDERED: LORazepam 2 MG/1 ML VIAL IV PRN (08:23)
[2020-08-02] MEDS ORDERED: LORazepam 2 MG/1 ML VIAL ONE (08:40)
== END 2020-08-02 09:02 | disposition expired | DRG 233 ==
LOC: N.EDINP 06:22 → N.ED 06:22 → SUATTDRO 14:31 → N.TELEN 17:22 → N.CVR 07-06 10:24 → N.ICU 07-07 12:07 → N.TELES 07-08 15:13 → N.CC 07-10 21:50
PROVIDERS: ATTEND Internal Medicine